=== PATIENT | male | born 1950 | race Two or more races ===

== ENCOUNTER 2020-07-11 | Outpatient (REF) | payer MEDICARE, SELFPAY ==
[2020-07-13 07:27] LABS: FIT Int Ctl YES; FIT1 NEGATIVE (NEGATIVE); FIT2 NEGATIVE (NEGATIVE)
== END 2020-07-11 00:01 | disposition home or self-care (01) ==
LOC: HO.LNP
PROVIDERS: Visit Provider Internal Medicine
DX: R19.5 Other fecal abnormalities (principal)
CPT/HCPCS: 82274

== ENCOUNTER 2020-07-17 12:25 | Outpatient (REF) | payer MEDICARE, SELFPAY ==
[2020-07-17 14:42] LABS: PSA,Total (Free>4and<10) 5.32 ng/mL (0.00-4.00)
[2020-07-18 11:11] LABS: Free Prostate Spec Ag 1.6 ng/mL; Percent Free Prostate Spec Ag 30 % (calc) (>25); Prostate Specific Ag Total 5.4 ng/mL (< OR = 4.0)
== END 2020-07-17 12:26 | disposition home or self-care (01) ==
LOC: HO.HMGCLDS 12:25
PROVIDERS: PCP Internal Medicine; Visit Provider Urology
DX: R97.20 Elevated prostate specific antigen [PSA] (principal); Z12.5 Encounter for screening for malignant neoplasm of prostate
CPT/HCPCS: 84153; 84154

== ENCOUNTER → 2020-07-25 16:04 | Outpatient (BNVA) | payer MEDICARE, SELFPAY | PROVIDERS: Visit Provider Urology | DX: Z76.89 Persons encountering health services in other specified circumstances (principal) | CPT/HCPCS: Q3014 ==

== ENCOUNTER 2020-10-14 08:25 | Outpatient (REF) | payer MEDICARE, SELFPAY ==
[2020-10-14 09:58] LABS: Estimated Average Glucose 180 mg/dL; Hemoglobin A1c % 7.9 %
[2020-10-14 10:20] LABS: Alanine Aminotransferase 23 U/L (0-40); Albumin Level 4.4 g/dL (3.5-5.0); Alkaline Phosphatase 49 U/L (39-117); Anion Gap 14 (12-20); Aspartate Amino Transferase 14 U/L (5-37); Bilirubin Total 0.7 mg/dL (0.0-1.0); Blood Urea Nitrogen 15 mg/dL (9-16); Calcium 9.1 mg/dL (8.4-10.2); Carbon Dioxide 26 mmol/L (22-29); Chloride 105 mmol/L (96-108); Cholesterol 189 mg/dL; Estimated Glomerular Filt Rate > 60; Glucose Fasting 177 mg/dL (60-99); HDL Cholesterol 47 mg/dL; LDL Cholesterol Calculated 113 mg/dl; Potassium 4.5 mmol/L (3.3-5.1); Sodium 140 mmol/L (135-145); Total Protein 6.7 g/dL (6.5-8.0); Triglycerides 147 mg/dL
[2020-10-14 11:45] LABS: Creatinine Urine 293.98 mg/dL; Microalbum/Creatinine Ratio Ur 10.2 ug/mg cr
== END 2020-10-14 08:26 | disposition home or self-care (01) ==
LOC: HO.LAB 08:25
PROVIDERS: PCP Internal Medicine; Visit Provider Internal Medicine
DX: I10 Essential (primary) hypertension (principal); E11.9 Type 2 diabetes mellitus without complications; E78.5 Hyperlipidemia, unspecified; C91.10 Chronic lymphocytic leukemia of B-cell type not having achieved remission
CPT/HCPCS: 36415; 80053; 80061; 82043; 83036

== ENCOUNTER 2021-01-15 15:07 | Outpatient (REF) | payer MEDICARE, SELFPAY ==
[2021-01-15 16:41] LABS: Basophils Absolute Auto 0.1 X10*3/uL (0.0-0.2); Basophils Percent Auto 0.4 % (0-2); Eosinophils Absolute Auto 0.1 X10*3/uL (0.0-0.4); Hematocrit 40.6 % (42-52); Hemoglobin 12.8 g/dl (14.0-18.0); Imm Gran Abs Auto 0.04 X10*3/uL (0.00-0.03); Imm Gran Pct Auto 0.3 % (0.0-0.4); Lymphocytes Percent Auto 71.9 % (20-40); MANUAL DIFF FLAG SCAN; Mean Corpuscular HGB Conc 31.5 g/dl (31.0-36.0); Mean Corpuscular Volume 85.7 fL (80-98); Mean Platelet Volume 10.4 fL (9.4-12.4); Monocytes Absolute Auto 0.4 X10*3/uL (0.1-1.2); Monocytes Percent Auto 2.8 % (2-11); Neutrophils Absolute Auto 3.3 X10*3/uL (2.0-8.3); Neutrophils Percent Auto 23.6 % (45-73); Platelet Count 213 X10*3/uL (160-400); Red Blood Count 4.74 X10*6/uL (4.60-5.80); Red Cell Distribution Width 13.2 % (11.0-16.0); SCAN SMEAR FLAG 1; White Blood Count 13.9 X10*3/uL (4.8-10.8)
[2021-01-15 16:54] LABS: Estimated Average Glucose 197 mg/dL; Hemoglobin A1c % 8.5 %
[2021-01-15 17:05] LABS: SLIDE REVIEW VERIFIED
[2021-01-15 17:07] LABS: Alanine Aminotransferase 17 U/L (0-40); Albumin Level 4.5 g/dL (3.5-5.0); Alkaline Phosphatase 58 U/L (39-117); Anion Gap 14 (12-20); Aspartate Amino Transferase 12 U/L (5-37); Bilirubin Total 0.7 mg/dL (0.0-1.0); Blood Urea Nitrogen 18 mg/dL (9-16); Calcium 9.3 mg/dL (8.4-10.2); Carbon Dioxide 22 mmol/L (22-29); Chloride 105 mmol/L (96-108); Cholesterol 189 mg/dL; Estimated Glomerular Filt Rate > 60; Glucose Random 134 mg/dL (60-115); HDL Cholesterol 45 mg/dL; LDL Cholesterol Calculated 107 mg/dl; Potassium 4.1 mmol/L (3.3-5.1); Sodium 137 mmol/L (135-145); Total Protein 6.9 g/dL (6.5-8.0); Triglycerides 185 mg/dL
== END 2021-01-15 15:08 | disposition home or self-care (01) ==
LOC: HO.HMGCLDS 15:07
PROVIDERS: PCP Internal Medicine; Visit Provider Internal Medicine
DX: I10 Essential (primary) hypertension (principal); E11.9 Type 2 diabetes mellitus without complications; E78.5 Hyperlipidemia, unspecified; C91.10 Chronic lymphocytic leukemia of B-cell type not having achieved remission
CPT/HCPCS: 36415; 80053; 80061; 83036; 85025

== ENCOUNTER 2021-02-06 12:06 | Outpatient (REF) | payer MEDICARE, SELFPAY ==
[2021-02-06 15:05] LABS: Prostate Specific Antigen 5.64 ng/mL (<0.05-4.0)
== END 2021-02-06 12:07 | disposition home or self-care (01) ==
LOC: HO.HMGCLDS 12:06
PROVIDERS: PCP Internal Medicine; Visit Provider Urology
DX: N40.1 Benign prostatic hyperplasia with lower urinary tract symptoms (principal); N13.8 Other obstructive and reflux uropathy; Z12.5 Encounter for screening for malignant neoplasm of prostate
CPT/HCPCS: 36415; 84153

== ENCOUNTER → 2021-02-14 14:05 | Outpatient (BNVA) | payer MEDICARE, SELFPAY | PROVIDERS: PCP Internal Medicine; Visit Provider Urology | DX: R97.20 Elevated prostate specific antigen [PSA] (principal); N40.1 Benign prostatic hyperplasia with lower urinary tract symptoms; N13.8 Other obstructive and reflux uropathy | CPT/HCPCS: 99212 ==

== ENCOUNTER → 2021-03-20 13:38 | Outpatient (BNVA) | payer SELFPAY | PROVIDERS: PCP Internal Medicine; Visit Provider Physician Assistant | DX: Z02.79 Encounter for issue of other medical certificate (principal) ==

== ENCOUNTER 2021-04-16 06:27 | Outpatient (REF) | payer MEDICARE, SELFPAY ==
[2021-04-16 12:33] LABS: Creatinine Urine 264.15 mg/dL; Microalbum/Creatinine Ratio Ur 13.2 ug/mg cr
[2021-04-16 12:57] LABS: Hematocrit 40.6 % (42-52); Hemoglobin 12.4 g/dl (14.0-18.0); Mean Corpuscular HGB Conc 30.5 g/dl (31.0-36.0); Mean Corpuscular Hemoglobin 26.6 pg (27.0-33.0); Mean Corpuscular Volume 87.1 fL (80-98); Mean Platelet Volume 10.8 fL (9.4-12.4); Platelet Count 178 X10*3/uL (160-400); Red Blood Count 4.66 X10*6/uL (4.60-5.80); White Blood Count 17.1 X10*3/uL (4.8-10.8)
[2021-04-16 13:10] LABS: Estimated Average Glucose 154 mg/dL
[2021-04-16 13:12] LABS: Alanine Aminotransferase 17 U/L (0-40); Albumin Level 4.3 g/dL (3.5-5.0); Alkaline Phosphatase 48 U/L (39-117); Anion Gap 12 (12-20); Aspartate Amino Transferase 12 U/L (5-37); Bilirubin Total 0.4 mg/dL (0.0-1.0); Blood Urea Nitrogen 16 mg/dL (9-16); Carbon Dioxide 26 mmol/L (22-29); Chloride 108 mmol/L (96-108); Cholesterol 160 mg/dL; Estimated Glomerular Filt Rate > 60; Glucose Fasting 168 mg/dL (60-99); HDL Cholesterol 40 mg/dL; LDL Cholesterol Calculated 82 mg/dl; Potassium 4.6 mmol/L (3.3-5.1); Sodium 141 mmol/L (135-145); Total Protein 6.5 g/dL (6.5-8.0); Triglycerides 191 mg/dL
== END 2021-04-16 06:28 | disposition home or self-care (01) ==
LOC: HO.HMGCLDS 06:27
PROVIDERS: PCP Internal Medicine; Visit Provider Internal Medicine
DX: E11.9 Type 2 diabetes mellitus without complications (principal); E78.5 Hyperlipidemia, unspecified; I10 Essential (primary) hypertension
CPT/HCPCS: 36415; 80053; 80061; 82043; 83036; 85027

== ENCOUNTER 2021-07-23 06:16 | Outpatient (REF) | payer MEDICARE, SELFPAY ==
[2021-07-23 12:00] LABS: Hematocrit 40.1 % (42.0-52.0); Hemoglobin 12.3 g/dl (14.0-18.0); Mean Corpuscular HGB Conc 30.7 g/dl (31.0-36.0); Mean Corpuscular Hemoglobin 26.5 pg (27.0-33.0); Mean Corpuscular Volume 86.4 fL (80.0-98.0); Mean Platelet Volume 10.6 fL (9.4-12.4); Platelet Count 174 X10*3/uL (160-400); Red Blood Count 4.64 X10*6/uL (4.60-5.80); Red Cell Distribution Width 13.7 % (11.0-16.0); White Blood Count 18.4 X10*3/uL (4.8-10.8)
[2021-07-23 12:27] LABS: Alanine Aminotransferase 19 U/L (0-40); Albumin Level 4.1 g/dL (3.5-5.0); Alkaline Phosphatase 50 U/L (39-117); Anion Gap 14 (12-20); Aspartate Amino Transferase 13 U/L (5-37); Bilirubin Total 0.5 mg/dL (0.0-1.0); Blood Urea Nitrogen 16 mg/dL (9-16); Calcium 9.3 mg/dL (8.4-10.2); Carbon Dioxide 24 mmol/L (22-29); Chloride 104 mmol/L (96-108); Cholesterol 206 mg/dL; Estimated Glomerular Filt Rate > 60; Glucose Fasting 172 mg/dL (60-99); HDL Cholesterol 42 mg/dL; LDL Cholesterol Calculated 119 mg/dl; Potassium 4.1 mmol/L (3.3-5.1); Sodium 138 mmol/L (135-145); Total Protein 6.3 g/dL (6.5-8.0); Triglycerides 226 mg/dL
[2021-07-23 12:29] LABS: PSA,Total (Free>4and<10) 4.48 ng/mL (0.00-4.00)
[2021-07-23 12:35] LABS: Creatinine Urine 101.28 mg/dL; Microalbum/Creatinine Ratio Ur 16.7 ug/mg cr
[2021-07-23 12:53] LABS: Estimated Average Glucose 186 mg/dL; Hemoglobin A1c % 8.1 %
[2021-07-25 12:27] LABS: Free Prostate Spec Ag 1.3 ng/mL; Percent Free Prostate Spec Ag 36 % (calc) (>25); Prostate Specific Ag Total 3.6 ng/mL (< OR = 4.0)
== END 2021-07-23 06:17 | disposition home or self-care (01) ==
LOC: HO.LAB 06:16
PROVIDERS: Absent Provider Urology; PCP Internal Medicine; Visit Provider Internal Medicine
DX: Z12.5 Encounter for screening for malignant neoplasm of prostate (principal); N13.8 Other obstructive and reflux uropathy; N40.1 Benign prostatic hyperplasia with lower urinary tract symptoms; R97.20 Elevated prostate specific antigen [PSA]; E11.9 Type 2 diabetes mellitus without complications; E78.5 Hyperlipidemia, unspecified; I10 Essential (primary) hypertension
CPT/HCPCS: 36415; 80053; 80061; 82043; 83036; 84153; 84154; 85027

== ENCOUNTER 2021-08-04 11:03 | Outpatient (REF) | payer MEDICARE, SELFPAY ==
--- NOTE | ~2021-08-04 | XR_ITS ---
EXAMINATION: XR CHEST CLINICAL INFORMATION: Cough. COMPARISON: 05/07/2013 chest radiographs. TECHNIQUE: 2 views of the chest were obtained. FINDINGS: No significant abnormality is noted involving the heart, lungs, mediastinum, bony thorax or soft tissues. XR/XR chest 2V IMPRESSION: No acute cardiopulmonary process.
== END 2021-08-04 11:04 | disposition home or self-care (01) ==
LOC: HO.HMGCX 11:03
PROVIDERS: PCP Internal Medicine; Visit Provider Physician Assistant Medical
DX: R05.9 Cough, unspecified (principal)
CPT/HCPCS: 71046

== ENCOUNTER 2021-08-04 13:34 | Outpatient (REF) | payer MEDICARE, SELFPAY ==
[2021-08-04 14:52] LABS: Influenza A PCR NEGATIVE (Negative); Influenza B PCR NEGATIVE (Negative); Resp Syncy Virus RNA Qual PCR NEGATIVE (Negative); SARS COV2 PCR INHOUSE POSITIVE (Negative)
== END 2021-08-04 13:35 | disposition home or self-care (01) ==
LOC: HO.LNP 13:34
PROVIDERS: Visit Provider Physician Assistant Medical
DX: Z20.822 Contact with and (suspected) exposure to COVID-19 (principal); J02.9 Acute pharyngitis, unspecified
CPT/HCPCS: 0241U

== ENCOUNTER 2021-08-05 14:26 | Inpatient (IN) | payer MEDICARE, SELFPAY ==
[2021-08-05] VITALS (8 sets, daily range): BP systolic 108–150; BP diastolic 61–80; PULSE 100–114; RESP 16–26; TEMP 36.7–38.1; O2SAT 89–95; BMI 29.5
--- NOTE | ~2021-08-05 | XR_ITS ---
EXAMINATION: XR CHEST CLINICAL INFORMATION: Hypoxia. Covid infection. COMPARISON: Previous chest x-ray from yesterday TECHNIQUE: Frontal view of the chest was obtained. FINDINGS: There is new atelectasis or small infiltrate at the left lung base. The lungs are otherwise clear. The cardiac and mediastinal contours are stable. There is no pleural effusion or pneumothorax. There are degenerative changes of the spine and mild curvature to the right. XR/XR chest 1V IMPRESSION: New atelectasis or small infiltrate at the left lung base.
--- NOTE | 2021-08-05 16:07 | ED.URI ---
HPI - URI/Sore Throat General Chief Complaint: Upper Respiratory Symptoms Stated Complaint: covid + low o2 high bp Time Seen by Provider: 08/05/21 15:13 Source: patient Mode of arrival: ambulatory Limitations: no limitations History of Present Illness HPI Narrative: 71 y/o male with history of CLL, HTN, DM, HLD, BPH who was diagnosed with COVID-19 here yesterday presents to the ER with reports of low oxygen level at home. He used his 's pulse oximeter and his SpO2 was reportedly in the 80's, he cannot recall the number. He reports a dry cough that is causing him to be short of breath and have chest pain. He has no chest pain at rest or with exertion, only with coughing. He has some minor body aches and pains, headache. He does not have any nausea, vomiting, diarrhea or abdominal pain. His main complaint is cough. His was very worried due to low oxygen level at home so they came to the emergency room for further evaluation. He is vaccinated for COVID but did not get his booster yet. MD elicited complaint: cough and other (Low oxygen level at home) Pertinent past history: other (COVID-19) Onset (ago): unknown Consistency: intermittent Severity: moderate Able to tolerate fluids by mouth: Yes Exacerbating factors: other (Coughing) Relieving factors: nothing Associated symptoms: cough, chest pain and shortness of breath Treatments prior to arrival: none Related Data Home Medications Medication Instructions Recorded Confirmed aspirin 81 mg tablet,delayed 81 mg PO DAILY 05/19/20 07/31/21 release Previous Rx's Medication Instructions Recorded lisinopril 20 mg tablet 20 mg PO DAILY #90 tab 08/10/20 metoprolol succinate 100 mg 100 mg PO DAILY #90 tab 08/10/20 tablet,extended release 24 hr amlodipine 10 mg tablet 10 mg PO DAILY #90 tab 11/07/20 finasteride 5 mg tablet 5 mg PO DAILY 90 Days #90 tab 02/27/21 pravastatin 40 mg tablet 40 mg PO DAILY #90 tab 03/20/21 metformin 1,000 mg tablet 1,000 mg PO BID #180 tab 05/08/21 glipizide 10 mg tablet 10 mg PO BID #180 tab 07/06/21 azithromycin 250 mg tablet See Rx Instructions PO .COMPLEX #6 08/04/21 tab benzonatate 100 mg capsule 100 mg PO BID-TID PRN #30 cap 08/04/21 Allergies Allergy/AdvReac Type Severity Reaction Status Date / Time atorvastatin [Lipitor] AdvReac Unknown back pain Verified 08/04/21 10:46 Review of Systems Review of Systems: Constitutional: No Fever, No Chills ENT/Mouth: No sore throat, No Rhinorrhea, No Swallowing Difficulty Eyes: No Eye Pain, No Swelling, No Redness Cardiovascular: + Chest Pain,+ SOB, No Orthopnea, No Edema Respiratory: + Cough, No Sputum, No Wheezing, No dyspnea Gastrointestinal: No Nausea, No Vomiting, No Diarrhea, No abdominal Pain Genitourinary: No Dysuria, No Urinary Frequency, No Hematuria Musculoskeletal: No joint pain, + Myalgias Skin: No Skin Lesions, No rash Neuro: No Weakness, No Numbness, No Dizziness, + Headache Psych: No Anxiety/Panic, No Depression Heme/Lymph: No Bruising, No Lymphadenopathy Endocrine: No Polyuria, No Polydipsia PMFSH Past Medical History Medical History Ascending aorta enlargement CLL (chronic lymphocytic leukemia) Colonoscopy refused DM type 2 (diabetes mellitus, type 2) (Unknown) HTN (hypertension) (Unknown) Hyperlipemia Surgical History History of cholecystectomy (Unknown) History of repair of right rotator cuff (Unknown) Family History Family History Father No problems noted. Mother Diabetes Social History Social History Housing: House Patient Tobacco Use Status: Former Tobacco user e-Cigarette/Vaping Use: Never Used Advance Directives: No Advance Directives Information Provided: Yes Current occupational status: retired Physical Exam Vital Signs: Vital Signs: Last Vital Signs Temp 99.2 F 08/05/21 14:40 Pulse 113 H 08/05/21 17:28 Resp 26 H 08/05/21 17:28 BP 120/72 08/05/21 17:28 Pulse Ox 92 08/05/21 17:28 BMI result Body Mass Index 29.5 Appearance: Alert elderly male sitting up in bed. Oriented X3. Eyes: Pupils equal, round and reactive to light. ENT: Pharynx normal. Neck: Normal inspection. Neck supple. CVS: Tachycardic to the 110's, regular rhythmPulses normal. Respiratory: Respiratory rate 26- 27, no accessory muscle use. Breath sounds diminished at the bilateral bases Abdomen: Soft and nontender. +BS x4 Skin: Skin warm and dry. Normal skin color. Normal skin turgor. No rashes. Extremities: No lower extremity edema. No calf tenderness Neuro: Oriented X 3. No motor deficit. No sensory deficit. Course Course Course Narrative: 71-year-old male with history of CLL, HTN, HLD, diabetes presents to the ER with hypoxia in the setting of COVID-19. He reports a dry cough that is very bothersome. Coughing causing shortness of breath and chest pain. SpO2 on arrival 92-94%. Monitor on continuous pulse oximetry to assess for potential hypoxia. His lungs are clear with a dry cough noted. He is not working to breathe or having any difficulty. Reevaluation(s) Reevaluation #1: Patient dropped SpO2 to 89% was maintaining for several minutes. Will place on supplemental O2, start IV decadron and plan for admission. MDM - URI/Sore Throat Lab Data Result diagrams: 08/05/21 16:04 08/05/21 16:04 Labs: Lab Results 08/05/21 08/05/21 Range/Units 16:04 16:04 WBC 17.8 H (4.8-10.8) X10*3/uL RBC 4.47 L (4.60-5.80) X10*6/uL Hgb 12.1 L (14.0-18.0) g/dl Hct 38.1 L (42.0-52.0) % MCV 85.2 (80.0-98.0) fL MCH 27.1 (27.0-33.0) pg MCHC 31.8 (31.0-36.0) g/dl RDW 13.5 (11.0-16.0) % Plt Count 166 (160-400) X10*3/uL MPV 9.5 (9.4-12.4) fL Immature Gran % (Auto) Cancelled Neut % (Auto) Cancelled Lymph % (Auto) Cancelled [place] % (Auto) Cancelled Eos % (Auto) Cancelled Baso % (Auto) Cancelled Lymph # (Auto) Cancelled [place] # (Auto) Cancelled Eos # (Auto) Cancelled Baso # (Auto) Cancelled Abs Immat Gran (auto) Cancelled Absolute Neuts (auto) Cancelled Absolute Nucleated RBC 0.000 (0.0-0.012) X10*3/uL Nucleated RBC % (auto) 0.0 (0.0-0.2) /100WBC Neutrophils % (Manual) 59 (45-73) % Band Neutrophils % 3 (3-5) % Lymphocytes % (Manual) 27 (20-40) % Monocytes % (Manual) 8 (2-11) % Eosinophils % (Manual) 1 (0-4) % Basophils % (Manual) 2 (0-2) % Abs Neuts (Manual) 11.0 H (2.0-8.3) X10*3/uL Lymphocytes # (Manual) 4.8 (1.2-4.9) X10*3/uL Monocytes # (Manual) 1.4 H (0.1-1.2) X10*3/uL Eosinophils # (Manual) 0.2 (0.0-0.4) X10*3/uL Basophils # (Manual) 0.4 H (0.0-0.2) X10*3/uL Smudge Cells PRESENT Platelet Estimate NORMAL (NORMAL) Plt Morphology Comment NORMAL RBC Morphology NORMAL Sodium 136 (135-145) mmol/L Potassium 3.9 (3.3-5.1) mmol/L Chloride 103 (96-108) mmol/L Carbon Dioxide 24 (22-29) mmol/L Anion Gap 13 (12-20) BUN 13 (9-16) mg/dL Creatinine 1.06 (0.5-1.4) mg/dL Estim Creat Clear Calc 83.5 Estimated GFR > 60 Random Glucose 260 H D (60-115) mg/dL Calcium 9.2 (8.4-10.2) mg/dL Magnesium 1.7 (1.6-2.6) mg/dL Total Bilirubin 0.6 (0.0-1.0) mg/dL Direct Bilirubin 0.2 (0.0-0.5) mg/dL AST 11 (5-37) U/L ALT 14 (0-40) U/L Alkaline Phosphatase 57 (39-117) U/L C-Reactive Protein 9.44 H (< or = 0.50) mg/dL Total Protein 6.3 L (6.5-8.0) g/dL Albumin 4.1 (3.5-5.0) g/dL Discharge Plan Discharge Clinical Impression: COVID-19, Hypoxia Patient Disposition: Admitted As Inpatient
[2021-08-05 16:10] LABS: Hematocrit 38.1 % (42.0-52.0); Hemoglobin 12.1 g/dl (14.0-18.0); Mean Corpuscular HGB Conc 31.8 g/dl (31.0-36.0); Mean Corpuscular Hemoglobin 27.1 pg (27.0-33.0); Mean Corpuscular Volume 85.2 fL (80.0-98.0); Mean Platelet Volume 9.5 fL (9.4-12.4); Platelet Count 166 X10*3/uL (160-400); Red Blood Count 4.47 X10*6/uL (4.60-5.80); Red Cell Distribution Width 13.5 % (11.0-16.0); White Blood Count 17.8 X10*3/uL (4.8-10.8)
[2021-08-05 16:40] LABS: Alanine Aminotransferase 14 U/L (0-40); Albumin Level 4.1 g/dL (3.5-5.0); Alkaline Phosphatase 57 U/L (39-117); Anion Gap 13 (12-20); Aspartate Amino Transferase 11 U/L (5-37); Bilirubin Direct 0.2 mg/dL (0.0-0.5); Bilirubin Total 0.6 mg/dL (0.0-1.0); Blood Urea Nitrogen 13 mg/dL (9-16); C Reactive Protein 9.44 mg/dL (< or = 0.50); Calcium 9.2 mg/dL (8.4-10.2); Carbon Dioxide 24 mmol/L (22-29); Chloride 103 mmol/L (96-108); Creatinine Clr Calc Pharmacy 83.5; Estimated Glomerular Filt Rate > 60; Glucose Random 260 mg/dL (60-115); Magnesium 1.7 mg/dL (1.6-2.6); Potassium 3.9 mmol/L (3.3-5.1); Sodium 136 mmol/L (135-145); Total Protein 6.3 g/dL (6.5-8.0)
[2021-08-05 16:41] LABS: Band Neutrophils Percent 3 % (3-5); Basophils Abs Manual 0.4 X10*3/uL (0.0-0.2); Basophils Percent Manual 2 % (0-2); Eosinophils Absolute Manual 0.2 X10*3/uL (0.0-0.4); Eosinophils Percent Manual 1 % (0-4); Lymphocytes Absolute Manual 4.8 X10*3/uL (1.2-4.9); Lymphocytes Percent Manual 27 % (20-40); Monocytes Absolute Manual 1.4 X10*3/uL (0.1-1.2); Monocytes Percent Manual 8 % (2-11); Neutrophils Percent Manual 59 % (45-73); Platelet Estimate NORMAL (NORMAL); Platelet Morphology Comment NORMAL
[2021-08-05 16:45] LABS: RBC Morphology NORMAL; Smudge Cells PRESENT
--- NOTE | 2021-08-05 17:02 | ECG_ITS ---
Test Reason : HYPOXIA Blood Pressure : / mmHG Vent. Rate : 108 BPM Atrial Rate : 108 BPM P-R Int : 176 ms QRS Dur : 086 ms QT Int : 342 ms P-R-T Axes : 032 -37 021 degrees QTc Int : 458 ms Sinus tachycardia Left axis deviation Cannot rule out Inferior infarct , age undetermined Abnormal ECG No previous ECGs available Referred By: Sherri Mane Electronically Signed By:ORIN CALLES MD
[2021-08-05] MEDS: dexAMETHasone sod phosphate 4 MG/ML VIAL 8 MG IVPUSH (17:19)
--- NOTE | 2021-08-05 17:29 | PC.NURSE ---
Medicated as per MAR orders, awaiting dispo, pt offers no complaints. Will cntinue to monitor.
[2021-08-05 17:44] LABS: Procalcitonin 0.06 ng/mL
--- NOTE | 2021-08-05 17:46 | PC.NURSE ---
Pt placed on 2l NC as per provider orders.
--- NOTE | 2021-08-05 18:46 | PM.IMHP ---
History of Present Illness Date of Service: 08/05/21 Attending physician on admission: Mohamud Blankenship Chief Complaint: Shortness of breath 71-year-old gentleman with past medical history of CLL in remission, hypertension, type 2 diabetes mellitus, hyperlipidemia patient diagnosed to have COVID-19 yesterday, he is vaccinated, presented to [facility] today since noted to have low oxygen level in 80s at home, used 's pulse oximetry, he is complaining of dry cough unable to bring up phlegm associated with shortness of breath and chest pain with coughing he denies associated lightheadedness dizziness, denies nausea vomiting abdominal pain or diarrhea denies fever chills or rigors complain of generalized body ache, in the emergency room noted to have finger oximetry 89% at rest, therefore placed on 2 L of oxygen receive IV Decadron and now being admitted to [facility] due to acute hypoxic respiratory failure with underlying risk factors of diabetes hypertension and CLL. Review of Systems Review of Systems: General headache no dizziness no fever chills. CVS no chest pain, no palpitation. Respiratory dry cough and shortness of breath Gastrointestinal no nausea no vomiting, no abdominal pain Skin no rash no urgency/no frequency Musculoskeletal generalized body ache, no swollen joints Yes all other systems are reviewed and are negative [facility] Medical History Ascending aorta enlargement CLL (chronic lymphocytic leukemia) Colonoscopy refused DM type 2 (diabetes mellitus, type 2) (Unknown) HTN (hypertension) (Unknown) Hyperlipemia Family History Father No problems noted. Mother Diabetes Pertinent family history: Unchanged, no other pertinent family history other than above Surgical History History of cholecystectomy (Unknown) History of repair of right rotator cuff (Unknown) Social History Housing: House Alcohol intake: never Patient Tobacco Use Status: Former Tobacco user e-Cigarette/Vaping Use: Never Used Use of substances other than those prescribed or required for medical reasons: No Advance Directives: No Advance Directives Information Provided: Yes Current occupational status: retired Meds Allergies Allergy/AdvReac Type Severity Reaction Status Date / Time atorvastatin [Lipitor] AdvReac Unknown back pain Verified 08/04/21 10:46 Active Medications: Current Medications Acetaminophen (Acetaminophen 325 Mg Tablet) 650 mg PO Q6H PRN PRN Reason: Pain, Mild (Pain Scale 1-3) Aspirin (Aspirin Enteric Coated 81 Mg Tablet.Dr) 81 mg PO DAILY [facility] Dextrose (Dextrose 50 % 25 Gm/50 Ml Vial) 25 gm IVPUSH Q15M PRN; Protocol PRN Reason: per Hypoglycemia Standing Ord. Glipizide (Glipizide 10 Mg Tablet) 10 mg PO BID [facility] Glucose (Glucose Gel 15 Gm Gel..Gram.) 15 gm PO Q15M PRN; Protocol PRN Reason: per Hypoglycemia Standing Ord. Insulin Human Lispro (Insulin Lispro 100 Unit/Ml 3 Ml Vial) 0 unit SUBCUT QIDACHS [facility]; Protocol Lisinopril (Lisinopril 20 Mg Tablet) 20 mg PO DAILY [facility]; Protocol Metoprolol Succinate (Metoprolol Succinate Er 100 Mg Tab.Er.24h) 100 mg PO DAILY [facility]; Protocol Ondansetron HCl (Ondansetron Hcl 4 Mg/2 Ml Vial) 4 mg IVPUSH Q8H PRN PRN Reason: Nausea and Vomiting Pravastatin Sodium (Pravastatin Sodium 40 Mg Tablet) 40 mg PO DAILY [facility] Sodium Chloride (0.9 % Sodium Chloride Flush 3 Ml Syringe) 3 ml IVFLUSH QSHIFT [facility] Home Medications Medication Instructions Recorded Confirmed Last Taken Type aspirin 81 mg tablet,delayed 81 mg PO DAILY 05/19/20 07/31/21 Unknown History release metformin 1,000 mg tablet 850 mg PO BID 08/05/21 08/05/21 08/05/21 08:00 History Physical Exam Vital Signs and Narrative: Vital Signs: Last Vital Signs Temp 99.2 F 08/05/21 14:40 Pulse 114 H 08/05/21 17:42 Resp 26 H 08/05/21 17:28 BP 120/72 08/05/21 17:28 Pulse Ox 89 L 08/05/21 17:42 BMI result Body Mass Index 29.5 General awake alert x3, no acute distress. HEENT pupil equal round reactive to light and accommodation Neck no JVD. CVS regular rate rhythm, Respiratory lungs bilateral basilar rhonchi, no respiratory distress, no use of accessory muscles Gastrointestinal abdomen soft, nontender, bowel sounds audible Extremities no edema. Neuro nonfocal Skin no rash Psych appropriate affect, appears anxious Musculoskeletal no deformity Results Labs CBC and Chem 7: 08/05/21 16:04 08/05/21 16:04 Labs: Laboratory Results - last 24 hr 08/05/21 08/05/21 08/05/21 16:04 16:04 16:04 MCV 85.2 MCH 27.1 MCHC 31.8 RDW 13.5 Plt Count 166 MPV 9.5 Immature Gran % (Auto) Cancelled Neut % (Auto) Cancelled Lymph % (Auto) Cancelled [place] % (Auto) Cancelled Eos % (Auto) Cancelled Baso % (Auto) Cancelled Lymph # (Auto) Cancelled [place] # (Auto) Cancelled Eos # (Auto) Cancelled Baso # (Auto) Cancelled Abs Immat Gran (auto) Cancelled Absolute Neuts (auto) Cancelled Absolute Nucleated RBC 0.000 Nucleated RBC % (auto) 0.0 Neutrophils % (Manual) 59 Band Neutrophils % 3 Lymphocytes % (Manual) 27 Monocytes % (Manual) 8 Eosinophils % (Manual) 1 Basophils % (Manual) 2 Abs Neuts (Manual) 11.0 H Lymphocytes # (Manual) 4.8 Monocytes # (Manual) 1.4 H Eosinophils # (Manual) 0.2 Basophils # (Manual) 0.4 H Smudge Cells PRESENT Platelet Estimate NORMAL Plt Morphology Comment NORMAL RBC Morphology NORMAL Anion Gap 13 Estim Creat Clear Calc 83.5 Estimated GFR > 60 Random Glucose 260 H D Calcium 9.2 Magnesium 1.7 Total Bilirubin 0.6 Direct Bilirubin 0.2 AST 11 ALT 14 Alkaline Phosphatase 57 C-Reactive Protein 9.44 H Total Protein 6.3 L Albumin 4.1 Procalcitonin 0.06 Imaging Radiologist's Impressions: Impressions Chest X-Ray 08/05/21 15:24 IMPRESSION: New atelectasis or small infiltrate at the left lung base. Assessment and Plan (1) COVID-19: Status: Acute (2) Hypoxia: Status: Acute (3) HTN (hypertension): Status: Acute (4) DM type 2 (diabetes mellitus, type 2): Status: Acute (5) Hyperlipemia: Status: Acute (6) Hypertension: Status: Acute (7) CLL (chronic lymphocytic leukemia): Status: Acute Acute hypoxic respiratory failure due to COVID-19 Will admit to isolation unit, high risk due to CLL, diabetes and hypertension. Continue IV Decadron 6 mg daily, supportive care with cough medication ,oxygen titrate as tolerated Pepcid 20 mg b.i.d., vitamin-C 500 mg daily and zinc Procalcitonin 0.06, CRP 9.44 Consult ID for remdesivir CLL leukocytosis, in remission as per PCP notes Diabetes mellitus type 2 Hold metformin, continue glipizide add insulin sliding scale and placed on ADA diet Hypertension Continue home medication lisinopril, metoprolol, hold Norvasc, resume if noted to have elevated BP Hyperlipidemia Continue pravastatin Code status full code DVT prophylaxis subQ Lovenox Quality Stroke Does the patient have a stroke diagnosis?: No VTE Prior VTE?: No VTE Risk Level:: Medical - moderate - high VTE Device Contraindication: Treatment Not Indicated VTE Drug Contraindication: N/A - Med Ordered
[2021-08-05] MEDS: Famotidine 20 MG TABLET PO (22:00)
[2021-08-05] MEDS: Insulin Lispro 100 UNIT/ML 3 ML VIAL SUBCUT (22:00)
[2021-08-05] MEDS: guaiFENesin DM 200/20/10 ML 10 ML SYRUP PO (22:00)
[2021-08-05] MEDS: Enoxaparin Sodium 40 MG/0.4 ML SYRINGE SUBCUT (22:00)
[2021-08-05] MEDS: glipiZIDE 10 MG TABLET PO (22:13)
[2021-08-06 00:41] LABS: Glucose, Whole Blood 264 mg/dL (60-115)
[2021-08-06] MEDS: guaiFENesin DM 200/20/10 ML 10 ML SYRUP PO ×4 (00:53→18:55)
[2021-08-06 03:07] VITALS: BP 96/50; PULSE 86; RESP 20; TEMP 36.9; O2SAT 92
--- NOTE | 2021-08-06 04:17 | PC.NURSE ---
pt on monitor, pt wakes to voice and denies any complaints at this time. Pt alert, respirations easy, n/l. skin w/d. pt given pillow and blanket for comfort. pt awaiting for room assignment.
[2021-08-06 06:01] VITALS: BP 117/65; PULSE 94; RESP 16; TEMP 36.7; O2SAT 98
--- NOTE | 2021-08-06 06:04 | PC.NURSE ---
pt cleaned up, pt wakes to voice, respirations easy, n/l. skin w/d. will continue to monitor pt.
--- NOTE | 2021-08-06 07:24 | PC.NURSE ---
alert, speech clear, denies pain or sob, feel good , ambulated to bathroom, now eating breakfast
[2021-08-06] MEDS: Famotidine 20 MG TABLET PO ×2 (07:58→20:04)
[2021-08-06] MEDS: dexAMETHasone sod phosphate 4 MG/ML VIAL 6 MG IVPUSH (07:58)
[2021-08-06 07:59] VITALS: BP 122/64; PULSE 92
[2021-08-06] MEDS: Aspirin Enteric Coated 81 MG TABLET.DR PO (07:59)
[2021-08-06] MEDS: lisinopriL 20 MG TABLET PO (07:59)
[2021-08-06] MEDS: Ascorbic Acid 500 MG TABLET PO (07:59)
[2021-08-06 08:00] VITALS: BP 126/77; PULSE 97
[2021-08-06] MEDS: Metoprolol Succinate ER 100 MG TAB.ER.24H PO (08:00)
[2021-08-06 08:05] VITALS: BP 126/77; PULSE 95; RESP 17; O2SAT 96
[2021-08-06] MEDS: glipiZIDE 10 MG TABLET PO ×2 (08:17→22:29)
[2021-08-06] MEDS: Finasteride 5 MG TABLET PO (08:17)
[2021-08-06] MEDS: Zinc Sulfate 220 MG CAPSULE PO (08:17)
[2021-08-06] MEDS: Insulin Lispro 100 UNIT/ML 3 ML VIAL SUBCUT ×4 (08:18→22:33)
[2021-08-06] MEDS: 0.9 % Sodium Chloride Flush 3 ML SYRINGE IVFLUSH ×2 (08:21→18:55)
[2021-08-06 09:19] LABS: Glucose, Whole Blood 320 mg/dL (60-115)
[2021-08-06 09:19] LABS: Glucose, Whole Blood 285 mg/dL (60-115)
--- NOTE | 2021-08-06 13:06 | MHC.CM.PN ---
Attempted to meet with patient in regards to discharge planning. Patient not in room. Will attempt to meet again. Continue to monitor for d/c needs.
[2021-08-06 13:29] LABS: Glucose, Whole Blood 252 mg/dL (60-115)
--- NOTE | 2021-08-06 13:31 | HO.PM.IMPN ---
Subjective Subjective Date of Service: 08/06/21 Interval History: Mild cough; dyspnea improved No fever Onset of illness was 07/31 Review of Systems Review of Systems: Yes all other systems are reviewed and are negative Physical Exam Vital Signs: Vital Signs: Last Vital Signs Temp 98.0 F 08/06/21 06:01 Pulse 95 08/06/21 08:05 Resp 17 08/06/21 08:05 BP 126/77 08/06/21 08:05 Pulse Ox 96 08/06/21 08:05 BMI result Body Mass Index 29.5 Gen: in no acute distress HEENT: sclera anicteric, moist mucus membranes Neck: supple Lungs: clear to auscultation bilaterally Heart: regular rate and rhythm, no murmurs Abd: soft, non-tender, non-distended Ext: no edema Skin: warm/well-perfused Neuro: alert and oriented x3, no focal findings Psych: appropriate affect Objective Data Active Medications Acetaminophen (Acetaminophen 325 Mg Tablet) 650 mg PO Q6H PRN PRN Reason: Pain, Mild (Pain Scale 1-3) Ascorbic Acid (Ascorbic Acid 500 Mg Tablet) 500 mg PO DAILY COUNT INCLUDES THE [facility] Last Admin: 08/06/21 07:59 Dose: 500 mg Documented by: MATTHEW Aspirin (Aspirin Enteric Coated 81 Mg Tablet.) 81 mg PO DAILY COUNT INCLUDES THE [facility] Last Admin: 08/06/21 07:59 Dose: 81 mg Documented by: MATTHEW Dexamethasone Sodium Phosphate (Dexamethasone Sod Phosphate 4 Mg/Ml Vial) 6 mg IVPUSH DAILY COUNT INCLUDES THE [facility] Last Admin: 08/06/21 07:58 Dose: 6 mg Documented by: MATTHEW Dextrose (Dextrose 50 % 25 Gm/50 Ml Vial) 25 gm IVPUSH Q15M PRN; Protocol PRN Reason: per Hypoglycemia Standing Ord. Enoxaparin Sodium (Enoxaparin Sodium 40 Mg/0.4 Ml Syringe) 40 mg SUBCUT Q24H COUNT INCLUDES THE [facility] Last Admin: 08/05/21 22:00 Dose: 40 mg Documented by: YANICK Famotidine (Famotidine 20 Mg Tablet) 20 mg PO BID COUNT INCLUDES THE [facility] Last Admin: 08/06/21 07:58 Dose: 20 mg Documented by: MATTHEW Finasteride (Finasteride 5 Mg Tablet) 5 mg PO DAILY COUNT INCLUDES THE [facility] Last Admin: 08/06/21 08:17 Dose: 5 mg Documented by: MATTHEW Glipizide (Glipizide 10 Mg Tablet) 10 mg PO BID COUNT INCLUDES THE [facility] Last Admin: 08/06/21 08:17 Dose: 10 mg Documented by: MATTHEW Glucose (Glucose Gel 15 Gm Gel..Gram.) 15 gm PO Q15M PRN; Protocol PRN Reason: per Hypoglycemia Standing Ord. Guaifenesin/Dextromethorphan (Guaifenesin Dm 200/20/10 Ml 10 Ml Syrup) 10 ml PO Q6H COUNT INCLUDES THE [facility] Last Admin: 08/06/21 07:58 Dose: 10 ml Documented by: MATTHEW Insulin Human Lispro (Insulin Lispro 100 Unit/Ml 3 Ml Vial) 0 unit SUBCUT QIDACHS COUNT INCLUDES THE [facility]; Protocol Last Admin: 08/06/21 08:18 Dose: 2 unit Documented by: MATTHEW Lisinopril (Lisinopril 20 Mg Tablet) 20 mg PO DAILY COUNT INCLUDES THE [facility]; Protocol Last Admin: 08/06/21 07:59 Dose: 20 mg Documented by: MATTHEW Metoprolol Succinate (Metoprolol Succinate Er 100 Mg Tab.Er.24h) 100 mg PO DAILY COUNT INCLUDES THE [facility]; Protocol Last Admin: 08/06/21 08:00 Dose: 100 mg Documented by: MATTHEW Ondansetron HCl (Ondansetron Hcl 4 Mg/2 Ml Vial) 4 mg IVPUSH Q8H PRN PRN Reason: Nausea and Vomiting Pravastatin Sodium (Pravastatin Sodium 40 Mg Tablet) 40 mg PO BEDTIME COUNT INCLUDES THE [facility] Sodium Chloride (0.9 % Sodium Chloride Flush 3 Ml Syringe) 3 ml IVFLUSH QSHIFT COUNT INCLUDES THE [facility] Last Admin: 08/06/21 08:21 Dose: 3 ml Documented by: MATTHEW Zinc Sulfate (Zinc Sulfate 220 Mg Capsule) 220 mg PO DAILY COUNT INCLUDES THE [facility] Last Admin: 08/06/21 08:17 Dose: 220 mg Documented by: MATTHEW Labs CBC & Chem 7: 08/05/21 16:04 08/05/21 16:04 Labs: Laboratory Results - last 24 hr 08/05/21 08/05/21 08/05/21 16:04 16:04 16:04 MCV 85.2 MCH 27.1 MCHC 31.8 RDW 13.5 Plt Count 166 MPV 9.5 Immature Gran % (Auto) Cancelled Neut % (Auto) Cancelled Lymph % (Auto) Cancelled [place] % (Auto) Cancelled Eos % (Auto) Cancelled Baso % (Auto) Cancelled Lymph # (Auto) Cancelled [place] # (Auto) Cancelled Eos # (Auto) Cancelled Baso # (Auto) Cancelled Abs Immat Gran (auto) Cancelled Absolute Neuts (auto) Cancelled Absolute Nucleated RBC 0.000 Nucleated RBC % (auto) 0.0 Neutrophils % (Manual) 59 Band Neutrophils % 3 Lymphocytes % (Manual) 27 Monocytes % (Manual) 8 Eosinophils % (Manual) 1 Basophils % (Manual) 2 Abs Neuts (Manual) 11.0 H Lymphocytes # (Manual) 4.8 Monocytes # (Manual) 1.4 H Eosinophils # (Manual) 0.2 Basophils # (Manual) 0.4 H Smudge Cells PRESENT Platelet Estimate NORMAL Plt Morphology Comment NORMAL RBC Morphology NORMAL Anion Gap 13 Estim Creat Clear Calc 83.5 Estimated GFR > 60 POC Glucose Random Glucose 260 H D Calcium 9.2 Magnesium 1.7 Total Bilirubin 0.6 Direct Bilirubin 0.2 AST 11 ALT 14 Alkaline Phosphatase 57 C-Reactive Protein 9.44 H Total Protein 6.3 L Albumin 4.1 Procalcitonin 0.06 08/06/21 08/06/21 08/06/21 00:36 07:55 09:15 MCV MCH MCHC RDW Plt Count MPV Immature Gran % (Auto) Neut % (Auto) Lymph % (Auto) [place] % (Auto) Eos % (Auto) Baso % (Auto) Lymph # (Auto) [place] # (Auto) Eos # (Auto) Baso # (Auto) Abs Immat Gran (auto) Absolute Neuts (auto) Absolute Nucleated RBC Nucleated RBC % (auto) Neutrophils % (Manual) Band Neutrophils % Lymphocytes % (Manual) Monocytes % (Manual) Eosinophils % (Manual) Basophils % (Manual) Abs Neuts (Manual) Lymphocytes # (Manual) Monocytes # (Manual) Eosinophils # (Manual) Basophils # (Manual) Smudge Cells Platelet Estimate Plt Morphology Comment RBC Morphology Anion Gap Estim Creat Clear Calc Estimated GFR POC Glucose 264 H 285 H 320 H Random Glucose Calcium Magnesium Total Bilirubin Direct Bilirubin AST ALT Alkaline Phosphatase C-Reactive Protein Total Protein Albumin Procalcitonin 08/06/21 13:23 MCV MCH MCHC RDW Plt Count MPV Immature Gran % (Auto) Neut % (Auto) Lymph % (Auto) [place] % (Auto) Eos % (Auto) Baso % (Auto) Lymph # (Auto) [place] # (Auto) Eos # (Auto) Baso # (Auto) Abs Immat Gran (auto) Absolute Neuts (auto) Absolute Nucleated RBC Nucleated RBC % (auto) Neutrophils % (Manual) Band Neutrophils % Lymphocytes % (Manual) Monocytes % (Manual) Eosinophils % (Manual) Basophils % (Manual) Abs Neuts (Manual) Lymphocytes # (Manual) Monocytes # (Manual) Eosinophils # (Manual) Basophils # (Manual) Smudge Cells Platelet Estimate Plt Morphology Comment RBC Morphology Anion Gap Estim Creat Clear Calc Estimated GFR POC Glucose 252 H Random Glucose Calcium Magnesium Total Bilirubin Direct Bilirubin AST ALT Alkaline Phosphatase C-Reactive Protein Total Protein Albumin Procalcitonin Assessment and Plan (1) COVID-19: Status: Acute (2) Hypoxia: Status: Acute Assessment and Plan: hospital d#2 71yo M with CLL + DM2, admitted with hypoxia due to breakthrough COVID-19 infection that started on 07/31/21 # acute hypoxic resp failure # COVID-19 pneumonia - continue dexamethasone d#10/04 - trend inflammatory markers - wean O2 as tolerated, encourage awake proning - ID consult pending # CLL - in remission # HTN - continue metoprolol + lisinopril; amlodipine held due to soft BP # DM2 - hold MTF, continue GPZ, check A1c # HLD - continue pravastatin # VTE ppx - LMWH Quality Stroke Does the patient have a stroke diagnosis?: No VTE Prior VTE?: No VTE Risk Level:: Medical - moderate - high VTE Device Contraindication: Treatment Not Indicated VTE Drug Contraindication: N/A - Med Ordered
--- NOTE | 2021-08-06 13:31 | MHC.CM.PN ---
Met with patient in regards to discharge planning. Patient lives with his , ambulates independently and had no services prior to coming to the hospital. No services anticipated to be needed because patient is not homebound. PCP verified. Patient has a HCP and will attempt to obtain a copy. Patient received 2 Moderna vaccines. IMM explained and signed. Patient's family will transport him home when medically stable. Continue to monitor for d/c needs.
[2021-08-06] MEDS: Enoxaparin Sodium 40 MG/0.4 ML SYRINGE SUBCUT (18:55)
[2021-08-06 18:56] VITALS: BP 120/62; PULSE 88; RESP 19; TEMP 37.2; O2SAT 95
[2021-08-06 19:22] LABS: Glucose, Whole Blood 279 mg/dL (60-115)
[2021-08-06] MEDS: Pravastatin Sodium 40 MG TABLET PO (20:04)
[2021-08-06 22:33] LABS: Glucose, Whole Blood 223 mg/dL (60-115)
[2021-08-07] VITALS (8 sets, daily range): BP systolic 115–128; BP diastolic 61–75; PULSE 98–108; RESP 16–21; TEMP 37.4–38.1; O2SAT 89–94
--- NOTE | 2021-08-07 03:10 | PC.NURSE ---
REPORT TAKEN FROM TOBIAS RN, FIRST CONTACT WITH PT. RESTING IN BED SKIN PWD RESPIRATIONS EVEN UNLABORED.AWAITING BED ASSIGNMENT FOR ADMISSION. AWARE OF PLAN OF CARE.
[2021-08-07] MEDS: guaiFENesin DM 200/20/10 ML 10 ML SYRUP PO ×2 (06:49→13:26)
[2021-08-07 07:06] LABS: Basophils Percent Auto 0.1 % (0-2); Eosinophils Percent Auto 0.1 % (0-4); Hematocrit 37.5 % (42.0-52.0); Hemoglobin 11.7 g/dl (14.0-18.0); Imm Gran Abs Auto 0.03 X10*3/uL (0.00-0.03); Imm Gran Pct Auto 0.2 % (0.0-0.4); MANUAL DIFF FLAG SCAN; Mean Corpuscular HGB Conc 31.2 g/dl (31.0-36.0); Mean Corpuscular Hemoglobin 26.5 pg (27.0-33.0); Mean Platelet Volume 9.6 fL (9.4-12.4); Monocytes Absolute Auto 0.5 X10*3/uL (0.1-1.2); Monocytes Percent Auto 2.8 % (2-11); Neutrophils Absolute Auto 4.1 x10*3/uL (2.0-8.3); Neutrophils Percent Auto 23.8 % (45-73); Platelet Count 189 X10*3/uL (160-400); Red Blood Count 4.41 X10*6/uL (4.60-5.80); Red Cell Distribution Width 13.7 % (11.0-16.0); SCAN SMEAR FLAG 1; White Blood Count 17.3 X10*3/uL (4.8-10.8)
[2021-08-07 07:15] LABS: D Dimer High Sensitivity 212 NG/ML
[2021-08-07 07:17] LABS: Lymphocytes Absolute Auto 12.6 X10*3/uL (1.2-4.9)
[2021-08-07 07:20] LABS: Alanine Aminotransferase 14 U/L (0-40); Albumin Level 3.7 g/dL (3.5-5.0); Alkaline Phosphatase 50 U/L (39-117); Anion Gap 11 (12-20); Aspartate Amino Transferase 15 U/L (5-37); Bilirubin Total 0.2 mg/dL (0.0-1.0); Blood Urea Nitrogen 19 mg/dL (9-16); C Reactive Protein 5.62 mg/dL (< or = 0.50); Calcium 8.8 mg/dL (8.4-10.2); Carbon Dioxide 26 mmol/L (22-29); Chloride 105 mmol/L (96-108); Creatinine Clr Calc Pharmacy 81.2; Estimated Glomerular Filt Rate > 60; Glucose Random 154 mg/dL (60-115); Potassium 3.9 mmol/L (3.3-5.1); Sodium 138 mmol/L (135-145); Total Protein 5.9 g/dL (6.5-8.0)
[2021-08-07 07:28] LABS: Estimated Average Glucose 189 mg/dL; Hemoglobin A1c % 8.2 %
[2021-08-07 07:34] LABS: Glucose, Whole Blood 171 mg/dL (60-115)
[2021-08-07] MEDS: Insulin Lispro 100 UNIT/ML 3 ML VIAL SUBCUT ×2 (07:44→13:26)
[2021-08-07 07:46] LABS: SLIDE REVIEW VERIFIED
[2021-08-07 08:02] LABS: Procalcitonin 0.05 ng/mL
[2021-08-07] MEDS: Zinc Sulfate 220 MG CAPSULE PO (09:57)
[2021-08-07] MEDS: glipiZIDE 10 MG TABLET PO (09:57)
[2021-08-07] MEDS: Ascorbic Acid 500 MG TABLET PO (09:58)
[2021-08-07] MEDS: Aspirin Enteric Coated 81 MG TABLET.DR PO (09:58)
[2021-08-07] MEDS: Finasteride 5 MG TABLET PO (09:58)
[2021-08-07] MEDS: Famotidine 20 MG TABLET PO (09:59)
[2021-08-07] MEDS: Metoprolol Succinate ER 100 MG TAB.ER.24H PO (09:59)
[2021-08-07] MEDS: lisinopriL 20 MG TABLET PO (09:59)
[2021-08-07] MEDS: dexAMETHasone sod phosphate 4 MG/ML VIAL 6 MG IVPUSH (09:59)
--- NOTE | 2021-08-07 10:03 | PC.NURSE ---
resting quietly. dry cough noted. unlabored resp at rest. st on monitor 103. has been seen by Estuardo sneed and awaits resp assissment for home vaccinations in .
--- NOTE | 2021-08-07 13:12 | PM.DS ---
DS: Providers Provider Date of Service: 08/07/21 Date of admission: 08/05/21 18:29 Primary care physician: Chata Curiel MD Consults: 08/05/21 18:45 Consult to Infectious Diseases Routine Consulting Provider: Anne Laboy Reason for consultation: covid Has provider been notified: No DS: Diagnosis Discharge Diagnosis (1) COVID-19: Status: Acute (2) Hypoxia: Status: Acute DS: Summary Hospital Course Hospital Course: from admission H+P by hospitalist Mohamud Blankenship MD, 08/05/21: 71-year-old gentleman with past medical history of CLL in remission, hypertension, type 2 diabetes mellitus, hyperlipidemia patient diagnosed to have COVID-19 yesterday, he is vaccinated, presented to [facility] today since noted to have low oxygen level in 80s at home, used 's pulse oximetry, he is complaining of dry cough unable to bring up phlegm associated with shortness of breath and chest pain with coughing he denies associated lightheadedness dizziness, denies nausea vomiting abdominal pain or diarrhea denies fever chills or rigors complain of generalized body ache, in the emergency room noted to have finger oximetry 89% at rest, therefore placed on 2 L of oxygen receive IV Decadron and now being admitted to [facility] due to acute hypoxic respiratory failure with underlying risk factors of diabetes hypertension and CLL. This 71yo M with CLL + DM2 was admitted with hypoxia due to breakthrough COVID-19 infection with symptoms that started on 07/31/21. He required oxygen only briefly, and by the time of discharge, had been off of it for 24 hours. He was treated with dexamethasone for 2 days and will complete 8 more days as an outpatient. He should maintain isolation for 10 days from the onset of illness and follow up with his primary care doctor within 1 week by televisit. He was instructed to continue monitoring his SaO2 at home. Time Spent with Patient Time attestation: Total time spent providing and/or coordinating discharge services: Discharge coordination time: Greater than 30 minutes Quality: Stroke Does the patient have a stroke diagnosis?: No Physical Exam Vital Signs: Vital Signs: Last Vital Signs Temp 100.3 F 08/07/21 09:55 Pulse 108 H 08/07/21 09:59 Resp 18 08/07/21 09:55 BP 128/70 08/07/21 09:59 Pulse Ox 92 08/07/21 09:55 BMI result Body Mass Index 29.5 Gen: in no acute distress HEENT: sclera anicteric, moist mucus membranes Neck: supple Lungs: clear to auscultation bilaterally Heart: regular rate and rhythm, no murmurs Abd: soft, non-tender, non-distended Ext: no edema Skin: warm/well-perfused Neuro: alert and oriented x3, no focal findings Psych: appropriate affect DS: Data Data Completed and Pending Completed studies during hospitalization [Text1]: Laboratory Results WBC 17.3 X10*3/uL (4.8-10.8) H 08/07/21 06:46 RBC 4.41 X10*6/uL (4.60-5.80) L 08/07/21 06:46 Hgb 11.7 g/dl (14.0-18.0) L 08/07/21 06:46 Hct 37.5 % (42.0-52.0) L 08/07/21 06:46 MCV 85.0 fL (80.0-98.0) 08/07/21 06:46 MCH 26.5 pg (27.0-33.0) L 08/07/21 06:46 MCHC 31.2 g/dl (31.0-36.0) 08/07/21 06:46 RDW 13.7 % (11.0-16.0) 08/07/21 06:46 Plt Count 189 X10*3/uL (160-400) 08/07/21 06:46 MPV 9.6 fL (9.4-12.4) 08/07/21 06:46 Immature Gran % (Auto) 0.2 % (0.0-0.4) 08/07/21 06:46 Neut % (Auto) 23.8 % (45-73) L 08/07/21 06:46 Lymph % (Auto) 73.0 % (20-40) H 08/07/21 06:46 [place] % (Auto) 2.8 % (2-11) 08/07/21 06:46 Eos % (Auto) 0.1 % (0-4) 08/07/21 06:46 Baso % (Auto) 0.1 % (0-2) 08/07/21 06:46 Lymph # (Auto) 12.6 X10*3/uL (1.2-4.9) H 08/07/21 06:46 [place] # (Auto) 0.5 X10*3/uL (0.1-1.2) 08/07/21 06:46 Eos # (Auto) 0.0 X10*3/uL (0.0-0.4) 08/07/21 06:46 Baso # (Auto) 0.0 X10*3/uL (0.0-0.2) 08/07/21 06:46 Abs Immat Gran (auto) 0.03 X10*3/uL (0.00-0.03) 08/07/21 06:46 Absolute Neuts (auto) 4.1 x10*3/uL (2.0-8.3) 08/07/21 06:46 Absolute Nucleated RBC 0.000 X10*3/uL (0.0-0.012) 08/07/21 06:46 Nucleated RBC % (auto) 0.0 /100WBC (0.0-0.2) 08/07/21 06:46 Neutrophils % (Manual) 59 % (45-73) 08/05/21 16:04 Band Neutrophils % 3 % (3-5) 08/05/21 16:04 Lymphocytes % (Manual) 27 % (20-40) 08/05/21 16:04 Monocytes % (Manual) 8 % (2-11) 08/05/21 16:04 Eosinophils % (Manual) 1 % (0-4) 08/05/21 16:04 Basophils % (Manual) 2 % (0-2) 08/05/21 16:04 Abs Neuts (Manual) 11.0 X10*3/uL (2.0-8.3) H 08/05/21 16:04 Lymphocytes # (Manual) 4.8 X10*3/uL (1.2-4.9) 08/05/21 16:04 Monocytes # (Manual) 1.4 X10*3/uL (0.1-1.2) H 08/05/21 16:04 Eosinophils # (Manual) 0.2 X10*3/uL (0.0-0.4) 08/05/21 16:04 Basophils # (Manual) 0.4 X10*3/uL (0.0-0.2) H 08/05/21 16:04 Smudge Cells PRESENT 08/05/21 16:04 Platelet Estimate NORMAL (NORMAL) 08/05/21 16:04 Plt Morphology Comment NORMAL 08/05/21 16:04 RBC Morphology NORMAL 08/05/21 16:04 Smear Tech's Comments VERIFIED 08/07/21 06:46 D-Dimer High Sensitivty 212 NG/ML 08/07/21 06:46 Sodium 138 mmol/L (135-145) 08/07/21 06:46 Potassium 3.9 mmol/L (3.3-5.1) 08/07/21 06:46 Chloride 105 mmol/L (96-108) 08/07/21 06:46 Carbon Dioxide 26 mmol/L (22-29) 08/07/21 06:46 Anion Gap 11 (12-20) L 08/07/21 06:46 BUN 19 mg/dL (9-16) H 08/07/21 06:46 Creatinine 1.09 mg/dL (0.5-1.4) 08/07/21 06:46 Estim Creat Clear Calc 81.2 08/07/21 06:46 Estimated GFR > 60 08/07/21 06:46 POC Glucose 171 mg/dL (60-115) H 08/07/21 07:24 Random Glucose 154 mg/dL (60-115) H D 08/07/21 06:46 Estimat Average Glucose 189 mg/dL 08/07/21 06:46 Hemoglobin A1c % 8.2 % 08/07/21 06:46 Calcium 8.8 mg/dL (8.4-10.2) 08/07/21 06:46 Magnesium 1.7 mg/dL (1.6-2.6) 08/05/21 16:04 Total Bilirubin 0.2 mg/dL (0.0-1.0) 08/07/21 06:46 Direct Bilirubin 0.2 mg/dL (0.0-0.5) 08/05/21 16:04 AST 15 U/L (5-37) 08/07/21 06:46 ALT 14 U/L (0-40) 08/07/21 06:46 Alkaline Phosphatase 50 U/L (39-117) 08/07/21 06:46 C-Reactive Protein 5.62 mg/dL (< or = 0.50) H 08/07/21 06:46 Total Protein 5.9 g/dL (6.5-8.0) L 08/07/21 06:46 Albumin 3.7 g/dL (3.5-5.0) 08/07/21 06:46 Procalcitonin 0.05 ng/mL 08/07/21 06:46 Impressions Chest X-Ray 08/05/21 15:24 IMPRESSION: New atelectasis or small infiltrate at the left lung base. Discharge Plan Discharge Patient Disposition: Home, Self-Care Discharge Diagnosis: Covid-19 pneumonia, hypoxic respiratory failure Referrals: Chata Curiel MD [Primary Care Provider] - 1 Week Discharge Medications: New dexamethasone 6 mg tablet 6 mg PO DAILY Qty: 8 RF: 0 Continued amlodipine 10 mg tablet 10 mg PO DAILY Qty: 90 RF: 3 pravastatin 40 mg tablet 40 mg PO DAILY Qty: 90 RF: 3 glipizide 10 mg tablet 10 mg PO BID Qty: 180 RF: 3 lisinopril 20 mg tablet 20 mg PO DAILY Qty: 90 RF: 3 metoprolol succinate 100 mg tablet extended release 24 hr 100 mg PO DAILY Qty: 90 RF: 3 metformin 1,000 mg tablet 850 mg PO BID RF: 0 finasteride 5 mg tablet 1 tab PO DAILY RF: 0 aspirin 81 mg tablet,delayed release (DR/EC) 81 mg PO DAILY RF: 0 Discharge Orders: Discharge Order (Routine); Ordered 08/07/21 Ordered By: Rolanda Angulo Diet: advance to usual diet and diabetic diet Activity on Discharge: As tolerated Stand Alone Forms: Patient Portal Discharge page Care Plan Goals: recovery from breakthrough COVID-19 infection Health Concerns: COVID-19 infection Plan of Treatment: take dexamethasone 6 mg daily for 8 days monitor your oxygen saturation and return to hospital if <90% see your primary care doctor [by televisit] in 1 week maintain isolation for 10 days after onset of symptoms Assessment: see Discharge Summary
[2021-08-07 13:20] LABS: Glucose, Whole Blood 246 mg/dL (60-115)
--- NOTE | 2021-08-07 13:27 | P.CNID_ITS ---
History of Present Illness Data of Consult Service Date: 08/06/21 Requesting physician: Rolanda Angulo Primary Care Provider: Chata Curiel MD [facility] Reason for consult: shortness of breath He developed cough and shortness of breath 10 days ago He was positive for COVID He has received two vaccines for COVID but no booster shot. He is on roomair. Review of Systems Review of Systems: Yes all other systems are reviewed and are negative PMFSH Past Medical History Medical History Ascending aorta enlargement CLL (chronic lymphocytic leukemia) Colonoscopy refused DM type 2 (diabetes mellitus, type 2) (Unknown) HTN (hypertension) (Unknown) Hyperlipemia Family History Family History Father No problems noted. Mother Diabetes Family history: reviewed and not pertinent Surgical History Surgical History History of cholecystectomy (Unknown) History of repair of right rotator cuff (Unknown) Social History Social History Housing: House Alcohol intake: never Patient Tobacco Use Status: Former Tobacco user e-Cigarette/Vaping Use: Never Used Use of substances other than those prescribed or required for medical reasons: No Advance Directives: No Advance Directives Information Provided: Yes service: No Current occupational status: retired Meds Allergies Allergy/AdvReac Type Severity Reaction Status Date / Time atorvastatin [Lipitor] AdvReac Unknown back pain Verified 08/04/21 10:46 Active Medications: Current Medications Acetaminophen (Acetaminophen 325 Mg Tablet) 650 mg PO Q6H PRN PRN Reason: Pain, Mild (Pain Scale 1-3) Ascorbic Acid (Ascorbic Acid 500 Mg Tablet) 500 mg PO DAILY [facility] Last Admin: 08/07/21 09:58 Dose: 500 mg Documented by: Aspirin (Aspirin Enteric Coated 81 Mg Tablet.) 81 mg PO DAILY [facility] Last Admin: 08/07/21 09:58 Dose: 81 mg Documented by: Dexamethasone Sodium Phosphate (Dexamethasone Sod Phosphate 4 Mg/Ml Vial) 6 mg IVPUSH DAILY [facility] Last Admin: 08/07/21 09:59 Dose: 6 mg Documented by: Dextrose (Dextrose 50 % 25 Gm/50 Ml Vial) 25 gm IVPUSH Q15M PRN; Protocol PRN Reason: per Hypoglycemia Standing Ord. Enoxaparin Sodium (Enoxaparin Sodium 40 Mg/0.4 Ml Syringe) 40 mg SUBCUT Q24H [facility] Last Admin: 08/06/21 18:55 Dose: 40 mg Documented by: Famotidine (Famotidine 20 Mg Tablet) 20 mg PO BID [facility] Last Admin: 08/07/21 09:59 Dose: 20 mg Documented by: Finasteride (Finasteride 5 Mg Tablet) 5 mg PO DAILY [facility] Last Admin: 08/07/21 09:58 Dose: 5 mg Documented by: Glipizide (Glipizide 10 Mg Tablet) 10 mg PO BID [facility] Last Admin: 08/07/21 09:57 Dose: 10 mg Documented by: Glucose (Glucose Gel 15 Gm Gel..Gram.) 15 gm PO Q15M PRN; Protocol PRN Reason: per Hypoglycemia Standing Ord. Guaifenesin/Dextromethorphan (Guaifenesin Dm 200/20/10 Ml 10 Ml Syrup) 10 ml PO Q6H [facility] Last Admin: 08/07/21 06:49 Dose: 10 ml Documented by: Insulin Human Lispro (Insulin Lispro 100 Unit/Ml 3 Ml Vial) 0 unit SUBCUT QIDACHS [facility]; Protocol Last Admin: 08/07/21 07:44 Dose: 2 unit Documented by: Lisinopril (Lisinopril 20 Mg Tablet) 20 mg PO DAILY [facility]; Protocol Last Admin: 08/07/21 09:59 Dose: 20 mg Documented by: Metoprolol Succinate (Metoprolol Succinate Er 100 Mg Tab.Er.24h) 100 mg PO DAILY [facility]; Protocol Last Admin: 08/07/21 09:59 Dose: 100 mg Documented by: Ondansetron HCl (Ondansetron Hcl 4 Mg/2 Ml Vial) 4 mg IVPUSH Q8H PRN PRN Reason: Nausea and Vomiting Pravastatin Sodium (Pravastatin Sodium 40 Mg Tablet) 40 mg PO BEDTIME [facility] Last Admin: 08/06/21 20:04 Dose: 40 mg Documented by: Sodium Chloride (0.9 % Sodium Chloride Flush 3 Ml Syringe) 3 ml IVFLUSH QSHIFT [facility] Last Admin: 08/07/21 09:57 Dose: Not Given Documented by: Zinc Sulfate (Zinc Sulfate 220 Mg Capsule) 220 mg PO DAILY [facility] Last Admin: 08/07/21 09:57 Dose: 220 mg Documented by: Home Medications Medication Instructions Recorded Confirmed Last Taken Type aspirin 81 mg tablet,delayed 81 mg PO DAILY 05/19/20 08/05/21 08/05/21 History release finasteride 5 mg tablet 1 tab PO DAILY 08/05/21 08/05/21 Unknown History metformin 1,000 mg tablet 850 mg PO BID 08/05/21 08/05/21 08/05/21 08:00 History Physical Exam Vital Signs: Vital Signs: Last Vital Signs Temp 99.9 F 08/07/21 13:13 Pulse 98 08/07/21 13:13 Resp 21 H 08/07/21 13:13 BP 121/75 08/07/21 13:13 Pulse Ox 89 L 08/07/21 13:13 BMI result Body Mass Index 29.5 Const: General: cooperative Eyes: General: appearance normal, both eyes and all related structures Resp: Effort & Inspection: normal respiratory effort Cardio: Rate: regular rate Rhythm: regular rhythm GI: Palpation (GI): Soft to palpation and nontender Skin: General skin exam: no rashes or lesions noted Results Labs CBC & Chem 7: 08/07/21 06:46 08/07/21 06:46 Labs: Short CBC 08/07/21 Range/Units 06:46 WBC 17.3 H (4.8-10.8) X10*3/uL Hgb 11.7 L (14.0-18.0) g/dl Hct 37.5 L (42.0-52.0) % Plt Count 189 (160-400) X10*3/uL BMP 08/07/21 06:46 Sodium 138 Potassium 3.9 Chloride 105 Carbon Dioxide 26 BUN 19 H Creatinine 1.09 Calcium 8.8 Liver Function 08/07/21 Range/Units 06:46 Total Bilirubin 0.2 (0.0-1.0) mg/dL AST 15 (5-37) U/L ALT 14 (0-40) U/L Alkaline Phosphatase 50 (39-117) U/L Albumin 3.7 (3.5-5.0) g/dL Assessment and Plan (1) COVID-19: Status: Acute COVID with mostly no hypoxia on room air He has been vaccinated. He has been feeling better. (2) Hypoxia: Status: Acute Would not give Remdesivir Oxygen if needed.
--- NOTE | 2021-08-07 14:19 | PC.NURSE ---
Pt resting quietly/ states he feels well enought to go home. ride will arrive around 1500.
== END 2021-08-07 16:16 | disposition home or self-care (01) | DRG 177 ==
LOC: HO.ED 17:20 → HO.EDOVER 18:42
PROVIDERS: Physician Assistant; Admitting Provider Hospitalist; Emergency Provider Emergency Medicine; PCP Internal Medicine; Visit Provider Family Medicine
DX: U07.1 COVID-19 (principal); J96.01 Acute respiratory failure with hypoxia; C91.11 Chronic lymphocytic leukemia of B-cell type in remission; E78.5 Hyperlipidemia, unspecified; E11.9 Type 2 diabetes mellitus without complications; Z79.82 Long term (current) use of aspirin; Z79.84 Long term (current) use of oral hypoglycemic drugs; Z79.899 Other long term (current) drug therapy
CPT/HCPCS: 36415; 71045; 80048; 80053; 80076; 82947; 83036; 83735; 84145; 85007; 85025; 85027; 85379; 86140; 93005; 99219; 99285; J1100; J1650

== ENCOUNTER 2021-08-14 09:20 | Outpatient (REF) | payer MEDICARE, SELFPAY ==
--- NOTE | ~2021-08-14 | XR_ITS ---
EXAMINATION: XR CHEST CLINICAL INFORMATION: Cough COMPARISON: Previous chest x-ray most recent 08/05/2021 TECHNIQUE: 2 views of the chest were obtained. FINDINGS: The cardiac and mediastinal contours are stable. The lung volumes are normal. There is new airspace disease seen in the peripheral right midlung. There is increasing airspace disease seen at the left lung base. There is no pleural effusion or pneumothorax. There are degenerative changes of the spine. XR/XR chest 2V IMPRESSION: Worsening bilateral pneumonia.
== END 2021-08-14 09:21 | disposition home or self-care (01) ==
LOC: HO.HMGCX 09:20
PROVIDERS: PCP Internal Medicine; Visit Provider Internal Medicine
DX: R05.9 Cough, unspecified (principal)
CPT/HCPCS: 71046

== ENCOUNTER → 2021-08-15 13:38 | Outpatient (BNVA) | payer MEDICARE, SELFPAY | PROVIDERS: PCP Internal Medicine; Visit Provider Urology | DX: R97.20 Elevated prostate specific antigen [PSA] (principal); N40.1 Benign prostatic hyperplasia with lower urinary tract symptoms; N13.8 Other obstructive and reflux uropathy | CPT/HCPCS: Q3014 ==

== ENCOUNTER 2021-10-22 06:15 | Outpatient (REF) | payer MEDICARE, SELFPAY ==
[2021-10-22 11:36] LABS: Hematocrit 41.3 % (42.0-52.0); Hemoglobin 12.3 g/dl (14.0-18.0); Mean Corpuscular HGB Conc 29.8 g/dl (31.0-36.0); Mean Corpuscular Hemoglobin 25.8 pg (27.0-33.0); Mean Corpuscular Volume 86.8 fL (80.0-98.0); Mean Platelet Volume 10.7 fL (9.4-12.4); Platelet Count 195 X10*3/uL (160-400); Red Blood Count 4.76 X10*6/uL (4.60-5.80); Red Cell Distribution Width 14.4 % (11.0-16.0); White Blood Count 13.4 X10*3/uL (4.8-10.8)
[2021-10-22 11:49] LABS: Estimated Average Glucose 160 mg/dL; Hemoglobin A1c % 7.2 %
[2021-10-22 11:53] LABS: Alanine Aminotransferase 23 U/L (0-40); Albumin Level 4.2 g/dL (3.5-5.0); Alkaline Phosphatase 50 U/L (39-117); Anion Gap 12 (12-20); Aspartate Amino Transferase 17 U/L (5-37); Bilirubin Total 0.6 mg/dL (0.0-1.0); Blood Urea Nitrogen 15 mg/dL (9-16); Calcium 9.2 mg/dL (8.4-10.2); Carbon Dioxide 25 mmol/L (22-29); Chloride 107 mmol/L (96-108); Cholesterol 164 mg/dL; Estimated Glomerular Filt Rate > 60; Glucose Fasting 130 mg/dL (60-99); HDL Cholesterol 45 mg/dL; LDL Cholesterol Calculated 97 mg/dl; Sodium 140 mmol/L (135-145); Total Protein 6.4 g/dL (6.5-8.0); Triglycerides 111 mg/dL
== END 2021-10-22 06:16 | disposition home or self-care (01) ==
LOC: HO.HMGCLDS 06:15
PROVIDERS: Visit Provider Internal Medicine
DX: E11.9 Type 2 diabetes mellitus without complications (principal); I10 Essential (primary) hypertension; E78.5 Hyperlipidemia, unspecified
CPT/HCPCS: 36415; 80053; 80061; 82043; 83036; 85027

== ENCOUNTER 2022-02-12 07:10 | Outpatient (REF) | payer MEDICARE, SELFPAY ==
[2022-02-12 11:57] LABS: Estimated Average Glucose 177 mg/dL; Hemoglobin A1c % 7.8 %
[2022-02-12 12:40] LABS: Creatinine Urine 178.87 mg/dL; Microalbum/Creatinine Ratio Ur 19.5 ug/mg cr
[2022-02-12 12:48] LABS: Alanine Aminotransferase 16 U/L (0-40); Albumin Level 4.1 g/dL (3.5-5.0); Alkaline Phosphatase 47 U/L (39-117); Anion Gap 12 (12-20); Aspartate Amino Transferase 11 U/L (5-37); Bilirubin Total 0.4 mg/dL (0.0-1.0); Blood Urea Nitrogen 20 mg/dL (9-16); Calcium 8.9 mg/dL (8.4-10.2); Carbon Dioxide 23 mmol/L (22-29); Chloride 109 mmol/L (96-108); Cholesterol 231 mg/dL; Estimated Glomerular Filt Rate > 60; Glucose Fasting 217 mg/dL (60-99); HDL Cholesterol 40 mg/dL; LDL Cholesterol Calculated 153 mg/dl; Potassium 4.7 mmol/L (3.3-5.1); Sodium 139 mmol/L (135-145); Total Protein 6.4 g/dL (6.5-8.0); Triglycerides 193 mg/dL
[2022-02-12 12:56] LABS: Prostate Specific Antigen 4.54 ng/mL (<0.05-4.0)
== END 2022-02-12 07:11 | disposition home or self-care (01) ==
LOC: HO.HMGCLDS 07:10
PROVIDERS: PCP Internal Medicine; Visit Provider Urology
DX: E11.9 Type 2 diabetes mellitus without complications (principal); I10 Essential (primary) hypertension; E78.5 Hyperlipidemia, unspecified; R97.20 Elevated prostate specific antigen [PSA]; Z12.5 Encounter for screening for malignant neoplasm of prostate
CPT/HCPCS: 36415; 80053; 80061; 82043; 83036; 84153

== ENCOUNTER → 2022-02-19 14:33 | Outpatient (BNVA) | payer MEDICARE, SELFPAY | PROVIDERS: PCP Internal Medicine; Visit Provider Urology | DX: N40.1 Benign prostatic hyperplasia with lower urinary tract symptoms (principal); N13.8 Other obstructive and reflux uropathy; R97.20 Elevated prostate specific antigen [PSA] | CPT/HCPCS: 51798; 99212 ==

== ENCOUNTER 2022-03-28 07:25 | Outpatient (REF) | payer MEDICARE, SELFPAY ==
[2022-03-28 07:41] VITALS: BP 136/75; PULSE 72; RESP 16; TEMP 36.8; O2SAT 98
[2022-03-28 07:43] VITALS: BMI 28.7
--- NOTE | 2022-03-28 08:26 | W.PM.OPN ---
Operative Note Operative Note Date of Service: 03/28/22 Narrative: Preoperative diagnosis: Elevated PSA Postoperative diagnosis: Elevated PSA Procedure: 1. transrectal ultrasound measurement of prostate 2. transrectal ultrasound-guided pudendal nerve block 3. transrectal ultrasound-guided prostate biopsy 12 core Surgeon: Dr. Haim Schmitt Anesthetic: Local Indications for procedure: Elevated PSA 4.5 on finasteride Procedure: After informed consent was verified, the patient was brought into the procedure area and lay left-hand side down on the table. Patient identity confirmed. Perioperative antibiotics confirmed. Iodine 10cc with Gel was placed per rectum Ultrasound probe was placed per rectum The prostate was measured in 3 dimensions Total volume equals 165 gm There were small scattered cystic structures and no calcifications noted and the prostate was homogeneous in nature A ultrasound-guided pudendal nerve block was performed using 10 cc of 1% lidocaine. 8 cc was placed at the base and 2 cc of the apex. A 12 core biopsy was performed with 6 cores each side. Two cores were taken at the apex, mid and base. Cores were spaced between lateral and medial. He tolerated the procedure well. Was able to ambulate to bathroom after 5 minutes. Printed instructions regarding antibiotic use and common side effects such as low-grade temperature and bleeding were given Pathology: 12 core prostate biopsy.
[2022-03-28 08:35] VITALS: BP 139/73; PULSE 75; RESP 16; O2SAT 97
== END 2022-03-28 07:26 | disposition home or self-care (01) ==
LOC: HO.MS 07:25
PROVIDERS: PCP Internal Medicine; Visit Provider Urology
PROC: (CPT 55700; principal; 2022-03-28 08:00)
DX: R97.20 Elevated prostate specific antigen [PSA] (principal); N40.1 Benign prostatic hyperplasia with lower urinary tract symptoms; N13.8 Other obstructive and reflux uropathy; E11.9 Type 2 diabetes mellitus without complications; C91.10 Chronic lymphocytic leukemia of B-cell type not having achieved remission; I10 Essential (primary) hypertension; Z88.8 Allergy status to other drugs, medicaments and biological substances; Z87.891 Personal history of nicotine dependence
CPT/HCPCS: 55700; 76942; 88305

== ENCOUNTER → 2022-04-05 08:36 | Outpatient (BNVA) | payer MEDICARE, SELFPAY | PROVIDERS: PCP Internal Medicine; Visit Provider Urology | DX: N40.1 Benign prostatic hyperplasia with lower urinary tract symptoms (principal); N13.8 Other obstructive and reflux uropathy; R97.20 Elevated prostate specific antigen [PSA] | CPT/HCPCS: Q3014 ==

== ENCOUNTER 2022-06-08 08:09 | Outpatient (REF) | payer MEDICARE, SELFPAY ==
[2022-06-08 12:10] LABS: Estimated Average Glucose 157 mg/dL; Hemoglobin A1c % 7.1 %
[2022-06-08 12:20] LABS: Creatinine Urine 141.07 mg/dL; Microalbum/Creatinine Ratio Ur 16.3 ug/mg cr
[2022-06-08 12:32] LABS: Alanine Aminotransferase 18 U/L (0-40); Albumin Level 4.2 g/dL (3.5-5.0); Alkaline Phosphatase 45 U/L (39-117); Anion Gap 15 (12-20); Aspartate Amino Transferase 13 U/L (5-37); Bilirubin Total 0.4 mg/dL (0.0-1.0); Blood Urea Nitrogen 17 mg/dL (9-16); Carbon Dioxide 25 mmol/L (22-29); Chloride 105 mmol/L (96-108); Cholesterol 192 mg/dL; Estimated Glomerular Filt Rate > 60; Glucose Fasting 147 mg/dL (60-99); HDL Cholesterol 40 mg/dL; LDL Cholesterol Calculated 126 mg/dl; Potassium 4.4 mmol/L (3.3-5.1); Sodium 141 mmol/L (135-145); Total Protein 6.4 g/dL (6.5-8.0); Triglycerides 132 mg/dL
== END 2022-06-08 08:10 | disposition home or self-care (01) ==
LOC: HO.HMGCLDS 08:09
PROVIDERS: PCP Internal Medicine; Visit Provider Internal Medicine
DX: E78.5 Hyperlipidemia, unspecified (principal); I10 Essential (primary) hypertension; E11.9 Type 2 diabetes mellitus without complications
CPT/HCPCS: 36415; 80053; 80061; 82043; 83036

== ENCOUNTER → 2022-06-26 09:02 | Outpatient (REF) | payer MEDICARE, SELFPAY ==
--- NOTE | 2022-06-26 09:05 | CA_ITS ---
Transthoracic Echocardiogram Patient (Last, First, Middle): Edmond Mata, Gender: Male Date of : 1950 Age: 72 Procedure Date: 06/26/2022 Procedure Type: Transthoracic Echocardiogram Location: OP Height: 190.5 cm Weight: 99.79 kg BSA: 2.29 m2 Heart Rate: 59 bpm BP: 125 / 72 mmHg Bioinformatics Assistant: TO Referring MD: Chata Curiel MD Symptoms: I77.89 - Other specified disorders of arteries and arterioles Study Quality: Fair/Contrast ECG Rhythm: Sinus Conclusions: - The left ventricular systolic function is normal. The calculated ejection fraction is 55% by biplane method. - No obvious valvular pathology seen on this study. Findings Procedure Information Contrast agent, definity, is being given per protocol without apparent complications. Left Ventricle Normal left ventricular cavity size. The left ventricular systolic function is normal. The calculated ejection fraction is 55% by biplane method. There is no evidence of regional wall motion abnormalities. Diastolic function is normal for age. There is mild septal asymmetric hypertrophy. Right Ventricle Normal right ventricular cavity size and systolic function. Atria Mild biatrial enlargement. Aortic Valve There is a normal trileaflet aortic valve. There is no aortic valve stenosis. There is trace (trivial) aortic valve regurgitation. Mitral Valve The mitral valve appears normal. There is no mitral valve regurgitation. There is no mitral valve stenosis. Pulmonic Valve There is trace pulmonic valve regurgitation. Tricuspid Valve Normal tricuspid valve structure. There is trace tricuspid valve regurgitation. There is no evidence of pulmonary hypertension. Great Vessels The aortic annulus, sinuses of valsalva, and asc aorta are normal in size. Venous The inferior vena cava is normal in size and collapses less than 50% with inspiration. Pericardium/Pleural There is no evidence of pericardial effusion. Prior Study Comparison No prior study available for comparison. Recommendations, Care & Conclusions No obvious valvular pathology seen on this study. Measurements 2D Linear Measurements IVSd: 1.15 0.6-0.9/0.6-1.0 cm LVIDd: 5.90 3.9-5.3/4.2-5.9 cm LVIDd Index: 2.58 2.4-3.2/2.2-3.1 cm/m2 LVIDs: 3.69 2.0-3.6 cm LVPWd: 0.88 0.7-1.1 cm LA Diam: 4.20 2.7-3.8/3.0-4.0 cm LAIDs Index: 1.83 1.5-2.3 cm/m2 LV Mass: 304.64 67-162/88-224 g LV Mass Index: 133.03 43-95/49-115 g/m2 LVOT Diam: 2.30 3.0+(-)1.3 cm 2D Systolic Function EF 4C: 49.00 >55% EF 2C: 60.90 >55% EF BiP: 55.20 >55% Mitral Valve MV Pk E: 0.36 MV PK A: 0.45 MV Decel Time: 254.00 E/A: 0.80 E'Lateral: 6.85 E'Medial: 5.66 E/E' Med: 6.40 E/E' Lat: 5.30 PHT: 74.00 MVA PHT: 2.97 Decel Har[place]on: 1.42 Aortic Valve AoV Pk [place]: 1.00 AoV Mn [place]: 0.71 AoV VTI: 0.23 AoV Pk Grad: 4.00 Aov Mn Grad: 2.00 KIKO Cont.VTI: 3.69 LVOT LVOT Pk [place]: 0.86 LVOT Mn [place]: 0.56 LVOT VTI: 0.20 LVOT Pk Grad: 3.00 LVOT Mn Grad: 1.00 LVOT Diam: 2.30 LVOT Area: 4.15 Diastolic Function MV Pk E: 0.36 MV Pk A: 0.45 E/A: 0.80 E'Medial: 5.66 E/E' Med: 6.40 E' Laterial: 6.85 E/E' Lat: 5.30 Right Ventricle TAPSE (mm): 25.80 TVS' [place]: 10.20 Tricuspid Valve TR Pk [place]: 2.43 TR Pk Grad: 24.00 RA Press: 8.00 RVSP: 32.00 Great Vessels Aorta Sinus of Valsalva: 4.32 2.0-3.[address] [place]: 2.99 1.7-3.4 cm Ao Asc: 3.60 2.1-3.4 cm Updated in Other Vendor System with Status of Final Santos Prabhakar MD electronically signed on 06/27/2022 2:06:53 PM with status of Final
== END ==
LOC: HO.CARD 09:02
PROVIDERS: PCP Internal Medicine; Visit Provider Internal Medicine
DX: I77.89 Other specified disorders of arteries and arterioles (principal)
CPT/HCPCS: 93306; Q9957

== ENCOUNTER 2022-10-04 08:57 | Outpatient (REF) | payer MEDICARE, SELFPAY ==
[2022-10-04 11:58] LABS: Basophils Absolute Auto 0.1 X10*3/uL (0.0-0.2); Basophils Percent Auto 0.3 % (0-2); Eosinophils Absolute Auto 0.1 X10*3/uL (0.0-0.4); Eosinophils Percent Auto 0.4 % (0-4); Hematocrit 41.7 % (42.0-52.0); Hemoglobin 12.8 g/dl (14.0-18.0); Imm Gran Abs Auto 0.04 X10*3/uL (0.00-0.03); Imm Gran Pct Auto 0.2 % (0.0-0.4); Lymphocytes Percent Auto 80.1 % (20-40); MANUAL DIFF FLAG SCAN; Mean Corpuscular HGB Conc 30.7 g/dl (31.0-36.0); Mean Corpuscular Hemoglobin 26.4 pg (27.0-33.0); Mean Platelet Volume 10.5 fL (9.4-12.4); Monocytes Absolute Auto 0.4 X10*3/uL (0.1-1.2); Monocytes Percent Auto 2.1 % (2-11); Neutrophils Percent Auto 16.9 % (45-73); Platelet Count 195 X10*3/uL (160-400); Red Blood Count 4.85 X10*6/uL (4.60-5.80); Red Cell Distribution Width 14.2 % (11.0-16.0); SCAN SMEAR FLAG 1; White Blood Count 17.6 X10*3/uL (4.8-10.8)
[2022-10-04 11:59] LABS: Lymphocytes Absolute Auto 14.1 X10*3/uL (1.2-4.9)
[2022-10-04 12:19] LABS: SLIDE REVIEW VERIFIED
[2022-10-04 12:22] LABS: Estimated Average Glucose 183 mg/dL
[2022-10-04 12:24] LABS: Creatinine Urine 82.93 mg/dL; Microalbum/Creatinine Ratio Ur 13.2 ug/mg cr
[2022-10-04 12:25] LABS: Cholesterol 205 mg/dL; HDL Cholesterol 42 mg/dL; LDL Cholesterol Calculated 129 mg/dl; Triglycerides 174 mg/dL
[2022-10-04 12:31] LABS: PSA,Total (Free>4and<10) 4.53 ng/mL (0.00-4.00)
[2022-10-07 11:03] LABS: Free Prostate Spec Ag 1.2 ng/mL; Percent Free Prostate Spec Ag 27 % (calc) (>25); Prostate Specific Ag Total 4.4 ng/mL (< OR = 4.0)
== END 2022-10-04 08:58 | disposition home or self-care (01) ==
LOC: HO.HMGCLDS 08:57
PROVIDERS: Absent Provider Urology; PCP Internal Medicine; Visit Provider Internal Medicine
DX: Z12.5 Encounter for screening for malignant neoplasm of prostate (principal); R97.20 Elevated prostate specific antigen [PSA]; N13.8 Other obstructive and reflux uropathy; N40.1 Benign prostatic hyperplasia with lower urinary tract symptoms; E11.9 Type 2 diabetes mellitus without complications; E78.5 Hyperlipidemia, unspecified; I10 Essential (primary) hypertension; I77.89 Other specified disorders of arteries and arterioles
CPT/HCPCS: 36415; 80061; 82043; 83036; 84153; 84154; 85025

== ENCOUNTER → 2022-10-11 08:42 | Outpatient (BNVA) | payer MEDICARE, SELFPAY | PROVIDERS: PCP Internal Medicine; Visit Provider Urology | DX: N40.1 Benign prostatic hyperplasia with lower urinary tract symptoms (principal); N13.8 Other obstructive and reflux uropathy | CPT/HCPCS: Q3014 ==

== ENCOUNTER → 2022-10-24 08:16 | Outpatient (REF) | payer MEDICARE, SELFPAY ==
--- NOTE | 2022-10-24 08:19 | CA_ITS ---
Acquisition Time: 2022-10-24 08:28:28 Total Exercise Time: 00:06:17 Test Indications: CP Medications: SEE CHART Protocol: ANDRES Max HR: 153 BPM 102% of Pred: 149 BPM Max BP: 176/076 mmHG Max Work Load: 7.4 METS Exercise stress test using Andres protocol, total of 6 m in 17 sec, METS 7.40, HR up to 102 % of TAPHR. Pt tolerated well, denies any SOB, no CP. EKG without arrhythmias, no ischemic changes seen during exercise or in recovery. Normotensive response to exercise. Test reviewed with Dr. De Jesus. Referred By: Chata Curiel Overread By: Viktoria Emerson NP
== END ==
LOC: HO.CARD 08:16
PROVIDERS: Visit Provider Internal Medicine
DX: R07.9 Chest pain, unspecified (principal); I10 Essential (primary) hypertension; E11.9 Type 2 diabetes mellitus without complications; E78.5 Hyperlipidemia, unspecified
CPT/HCPCS: 93017

== ENCOUNTER → 2022-10-30 10:36 | Outpatient (BNVA) | payer SELFPAY | PROVIDERS: PCP Internal Medicine; Visit Provider Physician Assistant Medical | DX: Z02.79 Encounter for issue of other medical certificate (principal) ==

== ENCOUNTER 2022-12-31 09:06 | Outpatient (REF) | payer MEDICARE, SELFPAY ==
[2022-12-31 11:30] LABS: Basophils Percent Auto 0.2 % (0-2); Eosinophils Absolute Auto 0.1 X10*3/uL (0.0-0.4); Eosinophils Percent Auto 0.4 % (0-4); Hematocrit 41.5 % (42.0-52.0); Hemoglobin 12.7 g/dl (14.0-18.0); Imm Gran Abs Auto 0.02 X10*3/uL (0.00-0.03); Imm Gran Pct Auto 0.1 % (0.0-0.4); Lymphocytes Percent Auto 80.6 % (20-40); MANUAL DIFF FLAG SCAN; Mean Corpuscular HGB Conc 30.6 g/dl (31.0-36.0); Mean Corpuscular Hemoglobin 26.6 pg (27.0-33.0); Mean Platelet Volume 10.5 fL (9.4-12.4); Monocytes Absolute Auto 0.4 X10*3/uL (0.1-1.2); Monocytes Percent Auto 2.3 % (2-11); Neutrophils Absolute Auto 2.5 x10*3/uL (2.0-8.3); Neutrophils Percent Auto 16.4 % (45-73); Platelet Count 170 X10*3/uL (160-400); Red Blood Count 4.77 X10*6/uL (4.60-5.80); Red Cell Distribution Width 13.9 % (11.0-16.0); SCAN SMEAR FLAG 1; White Blood Count 15.6 X10*3/uL (4.8-10.8)
[2022-12-31 11:33] LABS: Lymphocytes Absolute Auto 12.6 X10*3/uL (1.2-4.9)
[2022-12-31 12:15] LABS: Estimated Average Glucose 163 mg/dL; Hemoglobin A1c % 7.3 %
[2022-12-31 12:36] LABS: Alanine Aminotransferase 24 U/L (0-40); Albumin Level 4.3 g/dL (3.5-5.0); Alkaline Phosphatase 52 U/L (39-117); Anion Gap 12 (12-20); Aspartate Amino Transferase 15 U/L (5-37); Bilirubin Total 0.7 mg/dL (0.0-1.0); Blood Urea Nitrogen 16 mg/dL (9-16); Calcium 9.2 mg/dL (8.4-10.2); Carbon Dioxide 25 mmol/L (22-29); Chloride 110 mmol/L (96-108); Cholesterol 209 mg/dL; Estimated Glomerular Filt Rate > 60; Glucose Fasting 132 mg/dL (60-99); HDL Cholesterol 40 mg/dL; LDL Cholesterol Calculated 137 mg/dl; Potassium 4.8 mmol/L (3.3-5.1); Sodium 142 mmol/L (135-145); Total Protein 6.4 g/dL (6.5-8.0); Triglycerides 161 mg/dL
[2022-12-31 12:39] LABS: Creatinine Urine 259.11 mg/dL; Microalbum/Creatinine Ratio Ur 33.5 ug/mg cr
[2022-12-31 13:13] LABS: SLIDE REVIEW VERIFIED
== END 2022-12-31 09:07 | disposition home or self-care (01) ==
LOC: HO.HMGCLDS 09:06
PROVIDERS: PCP Internal Medicine; Visit Provider Internal Medicine
DX: E11.9 Type 2 diabetes mellitus without complications (principal); I10 Essential (primary) hypertension; E78.5 Hyperlipidemia, unspecified
CPT/HCPCS: 36415; 80053; 80061; 82043; 83036; 85025

== ENCOUNTER 2023-01-09 10:48 | Outpatient (REF) | payer MEDICARE, SELFPAY ==
--- NOTE | ~2023-01-09 | MR_ITS ---
EXAMINATION: MR BRAIN WITHOUT CONTRAST CLINICAL INFORMATION: Central retinal artery occlusion. COMPARISON: None available. TECHNIQUE: Multiplanar, multisequence imaging of the brain was performed without intravenous contrast. FINDINGS: There is no acute infarction, hemorrhage, mass, or extra-axial fluid collection. There is mild degree of brain parenchymal volume loss. Mild nonspecific T2/FLAIR hyperintensity seen within the cerebral white matter. The major arterial flow voids are preserved at the skull base. The orbital contents appear normal. There is polypoid mucosal thickening within the paranasal sinuses. Incidentally noted are numerous prominent to enlarged lymph nodes within the upper cervical chains. Prominent intraparotid lymph nodes are also noted. MR/MR head/brain wo con IMPRESSION: No acute intracranial abnormality identified. Specifically, no infarct is seen. Incidentally noted numerous prominent to enlarged lymph nodes within the upper cervical chains which could represent underlying lymphoproliferative disorder.
== END 2023-01-09 10:49 | disposition home or self-care (01) ==
LOC: HO.MRI 10:48
PROVIDERS: PCP Internal Medicine; Visit Provider Internal Medicine
DX: I63.9 Cerebral infarction, unspecified (principal)
CPT/HCPCS: 70551

== ENCOUNTER 2023-01-29 15:13 | Outpatient (REF) | payer MEDICARE, SELFPAY ==
--- NOTE | ~2023-01-29 | US_ITS ---
EXAMINATION: US EXTRACRANIAL CAROTID DUPLEX, BILATERAL CLINICAL INFORMATION: Bilateral carotid bruits, CVA. Diabetes. Hyperlipidemia. Hypertension. Previous tobacco. COMPARISON: MRI head 01/09/2023. TECHNIQUE: Real-time ultrasound and Doppler techniques (integrating B-mode 2-D vascular images, Doppler spectral analysis and color-flow Doppler imaging) were utilized to interrogate the extracranial carotid arteries, the vertebral arteries and proximal subclavian arteries bilaterally. The degree of stenosis is determined by criteria similar to NASCET. FINDINGS: Right Side: 1. There is no atherosclerotic plaque seen in the bifurcation/proximal ICA region. 2. The common carotid artery PSV proximally is 88 cm/s and distally 68 cm/s. 3. The proximal internal carotid artery velocities are 47 cm/s systolic and 13 cm/s diastolic. 4. The proximal external carotid artery PSV is 88 cm/s. 5. The vertebral artery shows antegrade flow. 6. The subclavian artery waveforms are normal. Left Side: 1. There is mild atherosclerotic plaque seen in the bifurcation/proximal ICA region. 2. The common carotid artery PSV proximally is 85 cm/s and distally 76 cm/s. 3. The proximal internal carotid artery velocities are 53 cm/s systolic and 18 cm/s diastolic. 4. The proximal external carotid artery PSV is 69 cm/s. 5. The vertebral artery shows antegrade flow. 6. The subclavian artery waveforms are normal. US/US carotid duplex BI IMPRESSION: 1. RIGHT: Normal right internal carotid artery without atherosclerotic plaque or hemodynamically significant stenosis. 2. LEFT: Minimal, non-hemodynamically significant stenosis of the proximal left internal carotid artery corresponding to a 0-49% stenosis by velocity criteria. 3. Bilateral cervical adenopathy similar to recent MRI brain.
== END 2023-01-29 15:14 | disposition home or self-care (01) ==
LOC: HO.HMGCX 15:13
PROVIDERS: PCP Internal Medicine; Visit Provider Internal Medicine
DX: I63.9 Cerebral infarction, unspecified (principal); R09.89 Other specified symptoms and signs involving the circulatory and respiratory systems
CPT/HCPCS: 93880

== ENCOUNTER 2023-03-22 07:55 | Outpatient (REF) | payer MEDICARE, SELFPAY ==
[2023-03-22 11:50] LABS: Prostate Specific Antigen 3.28 ng/mL (<0.05-4.0)
== END 2023-03-22 07:56 | disposition home or self-care (01) ==
LOC: HO.HMGCLDS 07:55
PROVIDERS: PCP Internal Medicine; Visit Provider Urology
DX: Z12.5 Encounter for screening for malignant neoplasm of prostate (principal); R97.20 Elevated prostate specific antigen [PSA]
CPT/HCPCS: 36415; 84153

== ENCOUNTER 2023-04-11 08:38 | Outpatient (AMB) | payer MEDICARE, SELFPAY ==
--- NOTE | 2023-04-11 08:53 | MHC.OFFVIS ---
Intake Intake Visit Reasons: 6M PSA(set) Intake Note: Patient is present for Follow Up PSA/PVR Urology Med: Finasteride, Antibiotic Allergy: None Blood Thinner: Aspirin [facility]: [facility] PVR: 0ML Allergies atorvastatin [Lipitor] Adverse Reaction (Unknown, Verified 04/11/23 08:54) back pain HPI HPI Comments History of Present Illness Details Edmond is a pleasant male. He is a patient Dr. Strong. He is seen for the following urologic conditions - elevated PSA - lower urinary tract symptoms Maintained urinary performance PVR 0 cc PSA has fallen to 3.3 HbA1c fallen from 8.0 to 7.3 Prostate biopsy shows BPH with inflammation Remain on finasteride Lower Urinary Tract Symptoms: 160gm at biopsy Current visit is for further evaluation of, lower urinary tract symptoms, predominate obstructive symptoms. Current treatment includes finasteride. Prostate Symptom Score 10/ , Moderate (9-19), Bother 3. Symptoms include 10/ , urgency, nocturia (>2), and are progressing. Prior Prostate Score unknown. PSA 06/12 10 09/13 5.2 on finasteride, 02/11 9.6, 07/14 5.3, 02/12 5.6, 07/15 3.6 F 36%, 02/13 4.5, 10/17 4.5 F 27%, 04/16 3.3 Prostate volume 50+gm - very large on exam - Prostate Biopsy 04/15 NAD, Volume 160gm Associated conditions CAD No CVA No diabetes Yes elevated PSA Yes erectile dysfunction Yes Testing at next visit will include bladder scan. Treatment plan Continue finasteride [facility] Medical History Ascending aorta enlargement CLL (chronic lymphocytic leukemia) Colonoscopy refused Cough DM type 2 (diabetes mellitus, type 2) (Unknown) HTN (hypertension) (Unknown) Hyperlipemia Hypertension Surgical History History of cholecystectomy (Unknown) History of repair of right rotator cuff (Unknown) Family History Father No problems noted. Mother Diabetes Social History Housing: House Alcohol intake: never Patient Tobacco Use Status: Former Tobacco user e-Cigarette/Vaping Use: Never Used service: No Current occupational status: retired Cognitive needs: No Hearing needs: Yes Vision needs: Yes Review of Systems Const Denies chills and Denies fever(s) Card Reports no additional complaints and Denies syncope Resp Denies cough GI Denies abdominal pain and Denies heartburn Reports as per HPI and Denies change in libido Neuro Denies syncope Psych Denies change in libido Endo Denies change in libido Physical Exam Const General: cooperative, healthy appearing, comfortable and no acute distress Orientation/consciousness: patient oriented x3 HEENT Face and sinus: Yes normal facial exam Mouth: moist mucous membranes Neck Neck: Yes normal visual inspection, Yes full ROM and Yes trachea midline Chest Chest palpation & inspection: normal inspection of the chest Resp Effort & Inspection: normal respiratory effort, able to speak in complete sentences and no respiratory distress GI Inspection: Yes normal to inspection Back/Spine/Pelvis Cervical Spine: normal cervical lordosis Thoracic/Lumbar Spine: thoracic and lumbar spine normal to inspection Skin General skin exam: no rashes or lesions noted Neuro General: patient oriented x3, gait normal, tone normal and moves all extremities Extrem General: Yes normal to inspection and Yes capillary refill normal Office Procedures Post Void Residual Post Residual Void Post Void Residual (PVR): 0 [id number] Void Residual by ultrasound Results AMB Urinalysis, Automated UA Leukoctes 0 Deangelo/uL Last Edit by RICARDO Sibley on 04/11/23 08:59 UA Nitrite Negative Last Edit by RICARDO Sibley on 04/11/23 08:59 UA Urobilinogen 0.2 mg/dL Last Edit by RICARDO Sibley on 04/11/23 08:59 UA Protein 0 mg/dL Last Edit by RICARDO Sibley on 04/11/23 08:59 UA pH 6.0 Last Edit by RICARDO Sibley on 04/11/23 08:59 UA Blood 0 Jerry/uL Last Edit by RICARDO Sibley on 04/11/23 08:59 UA Specific Duarte 1.025 Last Edit by RICARDO Sibley on 04/11/23 08:59 UA Ketone Negative Last Edit by RICARDO Sibley on 04/11/23 08:59 UA Bilirubin 0 mg/dL Last Edit by RICARDO Sibley on 04/11/23 08:59 UA Glucose 0 mg/dL Last Edit by RICARDO Sibley on 04/11/23 08:59 Results Reviewed Results Reviewed: Laboratory Last Values Urine pH (Auto) 6.0 04/11/23 08:54 Specific Duarte (Auto) 1.025 04/11/23 08:54 Urine Protein (Auto) 0 mg/dL 04/11/23 08:54 Glucose (UA)(Auto) 0 mg/dL 04/11/23 08:54 Urine Ketones (Auto) Negative 04/11/23 08:54 Urine Blood (Auto) 0 Jerry/uL 04/11/23 08:54 Urine Nitrite (Auto) Negative 04/11/23 08:54 Urine Bilirubin (Auto) 0 mg/dL 04/11/23 08:54 Urine Urobilinogen (Auto) 0.2 mg/dL 04/11/23 08:54 Leukocyte Esterase (Auto) 0 Deangelo/uL 04/11/23 08:54 Assessment & Plan Assessment & Plan (1) Elevated PSA: Comment: 04/15 160gm Biopsy Negative Code(s): R97.20 - Elevated prostate specific antigen [PSA] (2) BPH w urinary obs/LUTS: Code(s): N40.1 - Benign prostatic hyperplasia with lower urinary tract symptoms; N13.8 - Other obstructive and reflux uropathy Plan 6 month follow-up PSA tele visit Orders: Orders AMB Urinalysis Automated Today Z13.9 - Encounter for screening, unspecified AMB Post Void Residual by ultrasound Today N13.8 - Other obstructive and reflux uropathy, N40.1 - Benign prostatic hyperplasia with lower urinary tract symptoms Patient Instructions: Imaging studies, laboratory and physical exam results were discussed and reviewed in detail. No major barriers to patient understanding were identified. An opportunity to ask questions regarding the treatment plan was provided. All questions were answered. The patient expressed understanding and agreement with the above treatment plan. The patient is aware they should contact our office by phone for worsening of their current condition or the appearance of new urologic symptoms. Compliance is encouraged with any medications and followup testing that is ordered. It is a privilege to participate in the urologic care of your patient. If you have any questions or concerns regarding treatment for the above conditions, or other urologic issues, please do not hesitate to contact me. The office telephone contact is [phone]. This note is constructed using voice recognition software. While every effort has been made to ensure accuracy rental car deliverer errors may have been included. Yours sincerely, Dr Haim Schmitt MD, [facility] - Urology Providers of Expert, Compassionate Care for the Genitourinary System Coding Level of Care Code Est Pt Level 3 (38581) Diagnoses Elevated PSA R97.20 BPH w urinary obs/LUTS N40.1; N13.8 CPT Codes Post Residual Void - PVR CPT Code: 96682-[id number] Void Residual by ultrasound ([id number])
== END 2023-04-11 09:14 | disposition home or self-care (01) ==
PROVIDERS: PCP Internal Medicine; Visit Provider Urology
DX: R97.20 Elevated prostate specific antigen [PSA] (principal); N40.1 Benign prostatic hyperplasia with lower urinary tract symptoms; N13.8 Other obstructive and reflux uropathy; Z13.9 Encounter for screening, unspecified
CPT/HCPCS: 99213

== ENCOUNTER → 2023-04-11 08:38 | Outpatient (BNVA) | payer MEDICARE, SELFPAY | PROVIDERS: Visit Provider Urology | DX: N40.1 Benign prostatic hyperplasia with lower urinary tract symptoms (principal); N13.8 Other obstructive and reflux uropathy; R97.20 Elevated prostate specific antigen [PSA] | CPT/HCPCS: 51798; 81003; 99212 ==

== ENCOUNTER 2023-04-23 08:20 | Outpatient (REF) | payer MEDICARE, SELFPAY ==
[2023-04-23 11:53] LABS: Basophils Percent Auto 0.2 % (0-2); Eosinophils Absolute Auto 0.1 X10*3/uL (0.0-0.4); Eosinophils Percent Auto 0.6 % (0-4); Hematocrit 40.4 % (42.0-52.0); Hemoglobin 12.2 g/dl (14.0-18.0); Imm Gran Abs Auto 0.03 X10*3/uL (0.00-0.03); Imm Gran Pct Auto 0.2 % (0.0-0.4); Lymphocytes Absolute Auto 13.2 X10*3/uL (1.2-4.9); Lymphocytes Percent Auto 80.6 % (20-40); MANUAL DIFF FLAG SCAN; Mean Corpuscular HGB Conc 30.2 g/dl (31.0-36.0); Mean Corpuscular Hemoglobin 26.5 pg (27.0-33.0); Mean Corpuscular Volume 87.6 fL (80.0-98.0); Mean Platelet Volume 11.2 fL (9.4-12.4); Monocytes Absolute Auto 0.4 X10*3/uL (0.1-1.2); Monocytes Percent Auto 2.3 % (2-11); Neutrophils Absolute Auto 2.6 x10*3/uL (2.0-8.3); Neutrophils Percent Auto 16.1 % (45-73); Platelet Count 152 X10*3/uL (160-400); Red Blood Count 4.61 X10*6/uL (4.60-5.80); Red Cell Distribution Width 13.5 % (11.0-16.0); SCAN SMEAR FLAG 1; White Blood Count 16.3 X10*3/uL (4.8-10.8)
[2023-04-23 11:58] LABS: Estimated Average Glucose 183 mg/dL
[2023-04-23 12:12] LABS: Alanine Aminotransferase 80 U/L (0-40); Albumin Level 4.3 g/dL (3.5-5.0); Alkaline Phosphatase 49 U/L (39-117); Anion Gap 13 (12-20); Aspartate Amino Transferase 36 U/L (5-37); Bilirubin Total 0.8 mg/dL (0.0-1.0); Blood Urea Nitrogen 16 mg/dL (9-16); Calcium 9.3 mg/dL (8.4-10.2); Carbon Dioxide 27 mmol/L (22-29); Chloride 105 mmol/L (96-108); Cholesterol 91 mg/dL (<200); Estimated Glomerular Filt Rate > 60; Glucose Fasting 151 mg/dL (60-99); HDL Cholesterol 39 mg/dL (>40); LDL Cholesterol Calculated 35 mg/dL (<100); Potassium 4.6 mmol/L (3.3-5.1); Sodium 140 mmol/L (135-145); Total Protein 6.7 g/dL (6.5-8.0); Triglycerides 89 mg/dL (<150)
[2023-04-23 12:20] LABS: SLIDE REVIEW VERIFIED
[2023-04-23 12:30] LABS: Creatinine Urine 149.61 mg/dL; Microalbum/Creatinine Ratio Ur 30.7 ug/mg cr (<30)
== END 2023-04-23 08:21 | disposition home or self-care (01) ==
LOC: HO.HMGCLDS 08:20
PROVIDERS: PCP Internal Medicine; Visit Provider Internal Medicine
DX: E78.5 Hyperlipidemia, unspecified (principal); I10 Essential (primary) hypertension; E11.9 Type 2 diabetes mellitus without complications
CPT/HCPCS: 36415; 80053; 80061; 82043; 83036; 85025

== ENCOUNTER 2023-05-01 09:12 | Outpatient (AMB) | payer MEDICARE, SELFPAY ==
[2023-05-01 09:15] VITALS: BP 104/56; PULSE 68; O2SAT 95; BMI 27.5
--- NOTE | 2023-05-01 09:15 | A.OFFPC_ITS ---
Vital Signs 05/01/23 09:15 Height 6 ft 3 in Weight 220 lb BMI 27.5 BP 104/56 L Blood Pressure Location Rt brachial Position Sitting Pulse 68 Pulse Source Pulse Oximeter Pulse Oximetry (%) 95 Oxygen Delivery Method Room Air Intake Visit Reasons: 2 months follow up on DM. Intake Note: Pt is here today for 2 months follow up visit on DM. Allergies atorvastatin [Lipitor] Adverse Reaction (Unknown, Verified 05/01/23 09:17) back pain Medication List - Last Reconciled 05/01/23 by Chata Curiel MD amlodipine 10 mg PO DAILY aspirin 81 mg PO DAILY blood sugar diagnostic ([employer] Verio test strips) As directed to test blood sugar twice a day ezetimibe (Zetia) 10 mg PO DAILY finasteride 5 mg PO DAILY 90 days glipizide 20 mg (2 x 10 mg) PO BID lisinopril 20 mg PO DAILY metformin 1,000 mg PO BID metoprolol succinate ER 100 mg PO DAILY pen needle, diabetic (BD Ultra-Fine Mini Pen Needle) 1 QD rosuvastatin (Crestor) 20 mg PO DAILY Tobacco use date assessed: 05/01/23 Fall risk assessment: No Falls in past year Last assessed Fall Risk: 05/01/23 HPI 2 months follow up on DM. HPI Details Patient presents for the follow-up of type 2 diabetes hypertension hyperlipidemia. [facility] Medical History (Updated 05/01/23 @ 10:01 by Chata Curiel MD) Cough Colonoscopy refused Ascending aorta enlargement Hypertension CLL (chronic lymphocytic leukemia) Hyperlipemia DM type 2 (diabetes mellitus, type 2) (Unknown) HTN (hypertension) (Unknown) Surgical History History of repair of right rotator cuff (Unknown) History of cholecystectomy (Unknown) Family History Father No problems noted. Mother Diabetes Social History Housing: House Alcohol intake: never Patient Tobacco Use Status: Former Tobacco user e-Cigarette/Vaping Use: Never Used service: No Current occupational status: retired Cognitive needs: No Hearing needs: Yes Vision needs: Yes Questionnaire Thrive Questionnaire Date Thrive assessed: 10/14/22 ROSE-7 AMB Questionnaire ROSE-7 Date ROSE - 7 assessed: 10/14/22 Source: Developed by DrsEstuardo Gandara, Jolie Muir, Hamzah Gonzalez and colleagues, with an educational moisés from [employer]. Review of Systems Const All systems reviewed & are unremarkable except as noted in HPI and below Reports no additional complaints Eyes Reports no additional complaints ENT Reports no additional complaints Card Reports no additional complaints Resp Reports no additional complaints GI Reports no additional complaints Reports no additional complaints Physical exam (Primary Care) Vital Signs: Last Vital Signs Pulse 68 05/01/23 09:15 BP 104/56 L 05/01/23 09:15 Pulse Ox 95 05/01/23 09:15 Oxygen Delivery Method Room Air 05/01/23 09:15 BMI result Body Mass Index 27.5 Tobacco/Smoking Status: Tobacco use Status Tobacco use date assessed 05/01/23 05/01/23 09:25 Patient Tobacco Use Status Former Tobacco user 05/01/23 09:17 e-Cigarette/Vaping Use Never Used 05/01/23 09:17 Thrive Assessment: Date of Thrive Assessment Date Thrive assessed 10/14/22 05/01/23 09:17 Const General: no acute distress HENMT Head: Yes normal to inspection Ears: hearing grossly normal bilaterally Mouth: Normal oral and palatal mucosa present Neck Neck: Yes supple Resp Effort & Inspection: normal respiratory effort Auscultation: clear to auscultation bilaterally Cardio Rhythm: regular rhythm Heart sounds: S1 normal heart sound present and S2 normal heart sound present GI Inspection: Yes normal to inspection Palpation (GI): Soft to palpation Percussion: Yes normal to percussion Auscultation: normal bowel sounds Assessment and Plan Assessment & Plan (1) Hyperlipemia: Comment: INTOLERANT to statins : simvastatin, atorvastatin,pravastatin side effect- lower back pain Code(s): E78.5 - Hyperlipidemia, unspecified Plan: Continue Crestor and Zetia (2) HTN (hypertension): Onset Date: Unknown Code(s): I10 - Essential (primary) hypertension Plan: Continue current medications (3) DM type 2 (diabetes mellitus, type 2): Onset Date: Unknown Comment: cont meds and ADA diet, Code(s): E11.9 - Type 2 diabetes mellitus without complications Plan: A1c is up to 8.0, ADA diet increase physical activity discussed with the patient. He cannot afford Ozempic or Farxiga because of high co-pay.. Follow-up in 3 months with a fasting labs before (4) CLL (chronic lymphocytic leukemia): Comment: f/u with hematology Dr. Asencio Code(s): C91.10 - Chronic lymphocytic leukemia of B-cell type not having achieved remission Plan: Follow-up with Hematology Orders: Orders Comprehensive Vance. Panel Fast 3 Months C91.10 - Chronic lymphocytic leukemia of B-cell type not having achieved remission, E11.9 - Type 2 diabetes mellitus without complications, E78.5 - Hyperlipidemia, unspecified, I10 - Essential (primary) hypertension Hemoglobin A1c 3 Months C91.10 - Chronic lymphocytic leukemia of B-cell type not having achieved remission, E11.9 - Type 2 diabetes mellitus without complications, E78.5 - Hyperlipidemia, unspecified, I10 - Essential (primary) hypertension Lipid Panel 3 Months C91.10 - Chronic lymphocytic leukemia of B-cell type not having achieved remission, E11.9 - Type 2 diabetes mellitus without complications, E78.5 - Hyperlipidemia, unspecified, I10 - Essential (primary) hypertension Microalbumin, Random (w Creat) 3 Months C91.10 - Chronic lymphocytic leukemia of B-cell type not having achieved remission, E11.9 - Type 2 diabetes mellitus without complications, E78.5 - Hyperlipidemia, unspecified, I10 - Essential (primary) hypertension Coding Level of Care Code Est Pt Level 4 (26089) Diagnoses Hyperlipemia E78.5 HTN (hypertension) I10 DM type 2 (diabetes mellitus, type 2) E11.9 CLL (chronic lymphocytic leukemia) C91.10
== END 2023-05-01 10:01 | disposition home or self-care (01) ==
PROVIDERS: PCP Internal Medicine; Visit Provider Internal Medicine
DX: E78.5 Hyperlipidemia, unspecified (principal); I10 Essential (primary) hypertension; E11.9 Type 2 diabetes mellitus without complications; C91.10 Chronic lymphocytic leukemia of B-cell type not having achieved remission
CPT/HCPCS: 99214

== ENCOUNTER 2023-07-28 09:01 | Outpatient (REF) | payer MEDICARE, SELFPAY ==
[2023-07-28 11:54] LABS: Alanine Aminotransferase 50 U/L (0-40); Albumin Level 4.2 g/dL (3.5-5.0); Alkaline Phosphatase 42 U/L (39-117); Anion Gap 10 (12-20); Aspartate Amino Transferase 29 U/L (5-37); Bilirubin Total 0.5 mg/dL (0.0-1.0); Blood Urea Nitrogen 14 mg/dL (9-16); Calcium 9.1 mg/dL (8.4-10.2); Carbon Dioxide 27 mmol/L (22-29); Chloride 109 mmol/L (96-108); Cholesterol 93 mg/dL (<200); Estimated Glomerular Filt Rate > 60; Glucose Fasting 127 mg/dL (60-99); HDL Cholesterol 39 mg/dL (>40); LDL Cholesterol Calculated 36 mg/dL (<100); Potassium 4.2 mmol/L (3.3-5.1); Sodium 142 mmol/L (135-145); Total Protein 6.5 g/dL (6.5-8.0); Triglycerides 90 mg/dL (<150)
[2023-07-28 12:06] LABS: Estimated Average Glucose 177 mg/dL; Hemoglobin A1c % 7.8 % (<6.0)
[2023-07-28 12:18] LABS: Creatinine Urine 153.33 mg/dL; Microalbum/Creatinine Ratio Ur 16.9 ug/mg cr (<30)
== END 2023-07-28 09:02 | disposition home or self-care (01) ==
LOC: HO.HMGCLDS 09:01
PROVIDERS: PCP Internal Medicine; Visit Provider Internal Medicine
DX: C91.10 Chronic lymphocytic leukemia of B-cell type not having achieved remission (principal); E78.5 Hyperlipidemia, unspecified; I10 Essential (primary) hypertension; E11.9 Type 2 diabetes mellitus without complications
CPT/HCPCS: 36415; 80053; 80061; 82043; 82570; 83036

== ENCOUNTER 2023-08-04 09:17 | Outpatient (AMB) | payer MEDICARE, SELFPAY ==
--- NOTE | 2023-08-04 09:24 | MHC.PC.OV ---
Vital Signs 08/04/23 09:25 Height 6 ft 3 in Weight 218 lb BMI 27.2 BP 118/64 Blood Pressure Location Lt brachial Position Sitting Pulse 64 Pulse Source Pulse Oximeter Pulse Oximetry (%) 97 Oxygen Delivery Method Room Air Intake Visit Reasons: PE Intake Note: Pt is here today for PE. Pt states that he needs a refill on his lancets and test strips. Allergies atorvastatin [Lipitor] Adverse Reaction (Unknown, Verified 08/04/23 09:29) back pain Medication List - Last Reconciled 08/04/23 by Chata Curiel MD amlodipine 10 mg PO DAILY aspirin 81 mg PO DAILY blood sugar diagnostic ([employer] Verio test strips) As directed to test blood sugar twice a day ezetimibe (Zetia) 10 mg PO DAILY Farxiga (dapagliflozin propanediol) 5 mg PO DAILY NS finasteride 5 mg PO DAILY 90 days glipizide 20 mg (2 x 10 mg) PO BID lisinopril 20 mg PO DAILY metformin 1,000 mg PO BID metoprolol succinate ER 100 mg PO DAILY [one touch delica lancets check glucose once a day] pen needle, diabetic (BD Ultra-Fine Mini Pen Needle) 1 QD rosuvastatin (Crestor) 20 mg PO DAILY Tobacco use date assessed: 08/04/23 Fall risk assessment: No Falls in past year Last assessed Fall Risk: 08/04/23 Dental Screening Dental Screen Date: 08/04/23 Did you have a dental visit in the last 12 months?: Yes Did you have a dental problem in the last 6 months where you did not have access to dental care?: No Was dental information given to patient?: Patient has dentist HPI PE HPI Details Pt presents for PE. He reports occasionally low glucose down to 60s after walking in the morning. Patient usually has oatmeal for breakfast. [facility] Medical History (Updated 08/04/23 @ 11:50 by Chata Curiel MD) Cough Colonoscopy refused Ascending aorta enlargement Hypertension CLL (chronic lymphocytic leukemia) Hyperlipemia DM type 2 (diabetes mellitus, type 2) (Unknown) HTN (hypertension) (Unknown) Surgical History History of repair of right rotator cuff (Unknown) History of cholecystectomy (Unknown) Family History Father No problems noted. Mother Diabetes Social History Housing: House Alcohol intake: never Patient Tobacco Use Status: Former Tobacco user e-Cigarette/Vaping Use: Never Used service: No Current occupational status: retired Cognitive needs: No Hearing needs: Yes Vision needs: Yes Questionnaire Thrive Questionnaire Date Thrive assessed: 10/14/22 AUDIT C Alcohol Use Questionnaire (AUDIT-C) 1. How often do you have a drink containing alcohol?: Monthly or less 2. How many drinks containing alcohol do you have on a typical day when you are drinking?: 1 or 2 3. How often do you have six or more drinks on one occasion?: Never Total Score: 1 ROSE-7 AMB Questionnaire ROSE-7 Date ROSE - 7 assessed: 10/14/22 Source: Developed by Drs. Samson Gandara, Jolie Muir, Hamzah Gonzalez and colleagues, with an educational moisés from [employer]. Review of Systems Const All systems reviewed & are unremarkable except as noted in HPI and below Reports no additional complaints Eyes Reports no additional complaints ENT Reports no additional complaints Card Reports no additional complaints Resp Reports no additional complaints GI Reports no additional complaints Reports no additional complaints Physical exam (Primary Care) Vital Signs: Last Vital Signs Pulse 64 08/04/23 09:25 BP 118/64 08/04/23 09:25 Pulse Ox 97 08/04/23 09:25 Oxygen Delivery Method Room Air 08/04/23 09:25 BMI result Body Mass Index 27.2 Tobacco/Smoking Status: Tobacco use Status Tobacco use date assessed 08/04/23 08/04/23 09:32 Patient Tobacco Use Status Former Tobacco user 08/04/23 09:32 e-Cigarette/Vaping Use Never Used 08/04/23 09:32 Thrive Assessment: Date of Thrive Assessment Date Thrive assessed 10/14/22 08/04/23 09:32 Const General: no acute distress HENMT Head: Yes normal to inspection Ears: hearing grossly normal bilaterally Face and sinus: Yes normal facial exam Mouth: Normal oral and palatal mucosa present Throat: Yes posterior oropharynx normal Eyes General: appearance normal, both eyes and all related structures Neck Neck: Yes no lymphadenopathy and Yes supple Resp Effort & Inspection: normal respiratory effort Auscultation: clear to auscultation bilaterally Cardio Rhythm: regular rhythm Heart sounds: S1 normal heart sound present and S2 normal heart sound present GI Inspection: Yes normal to inspection Palpation (GI): Soft to palpation Percussion: Yes normal to percussion Auscultation: normal bowel sounds Assessment and Plan Assessment & Plan (1) HTN (hypertension): Onset Date: Unknown Code(s): I10 - Essential (primary) hypertension Plan: Continue current medications (2) DM type 2 (diabetes mellitus, type 2): Onset Date: Unknown Comment: cont meds and ADA diet, insurance does not cover SGTP 2 inhibitor Code(s): E11.9 - Type 2 diabetes mellitus without complications Plan: A1c is down to 7.8, ADA diet regular physical activity discussed. he was advised to decrease glipizide to 10 mg in the morning and continue 20 mg at bedtime. Follow-up in from months with fasting labs before (3) CLL (chronic lymphocytic leukemia): Comment: f/u with hematology Dr. Asencio Code(s): C91.10 - Chronic lymphocytic leukemia of B-cell type not having achieved remission Plan: Follow-up with Hematology (4) Annual physical exam: Code(s): Z00.00 - Encounter for general adult medical examination without abnormal findings Plan: Well-balanced diet regular exercise discussed with the patient. he refused colonoscopy Orders: Orders Hemoglobin A1c 4 Months E11.9 - Type 2 diabetes mellitus without complications, I10 - Essential (primary) hypertension Lipid Panel 4 Months E11.9 - Type 2 diabetes mellitus without complications, I10 - Essential (primary) hypertension Comprehensive Met. Panel 4 Months E11.9 - Type 2 diabetes mellitus without complications, I10 - Essential (primary) hypertension Microalbumin, Random (w Creat) 4 Months E11.9 - Type 2 diabetes mellitus without complications, I10 - Essential (primary) hypertension Medications: Discontinued ezetimibe (Zetia) Discontinued Reason: Doctor's Order 10 mg PO DAILY 90 tabs 3RF Farxiga (dapagliflozin propanediol) Discontinued Reason: Doctor's Order 5 mg PO DAILY 90 tabs 0RF NS Coding Level of Care Code Est Pt Prev Care >65y(42356) Diagnoses HTN (hypertension) I10 DM type 2 (diabetes mellitus, type 2) E11.9 CLL (chronic lymphocytic leukemia) C91.10 Annual physical exam Z00.00
[2023-08-04 09:25] VITALS: BP 118/64; PULSE 64; O2SAT 97; BMI 27.2
== END 2023-08-04 11:24 | disposition home or self-care (01) ==
PROVIDERS: PCP Internal Medicine; Visit Provider Internal Medicine
DX: Z00.00 Encounter for general adult medical examination without abnormal findings (principal); I10 Essential (primary) hypertension; E11.9 Type 2 diabetes mellitus without complications; C91.10 Chronic lymphocytic leukemia of B-cell type not having achieved remission
CPT/HCPCS: 99397

== ENCOUNTER 2023-10-01 10:43 | Outpatient (REF) | payer MEDICARE, SELFPAY | END 2023-10-01 10:44 | disposition home or self-care (01) | LOC: HO.LAB 10:43 | PROVIDERS: Visit Provider Urology | DX: Z13.89 Encounter for screening for other disorder (principal) ==

== ENCOUNTER 2023-10-09 08:20 | Outpatient (REF) | payer MEDICARE, SELFPAY ==
[2023-10-09 11:47] LABS: Estimated Average Glucose 171 mg/dL; Hemoglobin A1c % 7.6 % (<6.0)
[2023-10-09 11:48] LABS: Alanine Aminotransferase 36 U/L (0-40); Albumin Level 4.2 g/dL (3.5-5.0); Alkaline Phosphatase 47 U/L (39-117); Anion Gap 11 (12-20); Aspartate Amino Transferase 22 U/L (5-37); Bilirubin Total 0.6 mg/dL (0.0-1.0); Blood Urea Nitrogen 15 mg/dL (9-16); Calcium 9.4 mg/dL (8.4-10.2); Carbon Dioxide 26 mmol/L (22-29); Chloride 107 mmol/L (96-108); Cholesterol 123 mg/dL (<200); Estimated Glomerular Filt Rate > 60; Glucose Random 178 mg/dL (60-115); HDL Cholesterol 41 mg/dL (>40); LDL Cholesterol Calculated 60 mg/dL (<100); Potassium 4.2 mmol/L (3.3-5.1); Sodium 140 mmol/L (135-145); Total Protein 6.5 g/dL (6.5-8.0); Triglycerides 110 mg/dL (<150)
[2023-10-09 12:06] LABS: Prostate Specific Antigen 4.93 ng/mL (<0.05-4.0)
[2023-10-09 12:18] LABS: Creatinine Urine 184.57 mg/dL; Microalbum/Creatinine Ratio Ur 21.6 ug/mg cr (<30)
== END 2023-10-09 08:21 | disposition home or self-care (01) ==
LOC: HO.HMGCLDS 08:20
PROVIDERS: PCP Internal Medicine; Visit Provider Urology
DX: R97.20 Elevated prostate specific antigen [PSA] (principal); I10 Essential (primary) hypertension; E11.9 Type 2 diabetes mellitus without complications; Z12.5 Encounter for screening for malignant neoplasm of prostate
CPT/HCPCS: 36415; 80053; 80061; 82043; 82570; 83036; 84153

== ENCOUNTER 2023-10-17 13:04 | Outpatient (AMB) | payer MEDICARE, SELFPAY ==
--- NOTE | 2023-10-17 13:03 | A.OFFVIS_ITS ---
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 Accompanied by: Self / Same As Patient Allergies atorvastatin [Lipitor] Adverse Reaction (Unknown, Verified 10/17/23 13:07) back pain Medication List - Last Reconciled 10/17/23 by Haim Schmitt MD amlodipine 10 mg PO DAILY aspirin 81 mg PO DAILY blood sugar diagnostic ([employer] Verio test strips) As directed to test blood sugar twice a day finasteride 5 mg PO DAILY 90 days glipizide 20 mg (2 x 10 mg) PO BID lancets ([employer] Delica Plus Lancet) Test blood sugar twice per day lisinopril 20 mg PO DAILY metformin 1,000 mg PO BID metoprolol succinate ER 100 mg PO DAILY pen needle, diabetic (BD Ultra-Fine Mini Pen Needle) 1 QD rosuvastatin (Crestor) 20 mg PO DAILY HPI HPI Comments History of Present Illness Details Edmond is a pleasant male. He is a patient Dr. Strong. He is seen for the following urologic conditions - elevated PSA - lower urinary tract symptoms Telemedicine Evaluation 15 min Consultation Doximity Ramiro Video attempted PSA 4.9 HbA1c fallen from 8.0 to 7.3 Prior Prostate biopsy shows BPH with inflammation Remain on finasteride Lower Urinary Tract Symptoms: 160gm at biopsy Current visit is for further evaluation of, lower urinary tract symptoms, predominate obstructive symptoms. Current treatment includes finasteride. Prostate Symptom Score 06/12 , Moderate (9-19), Bother 3. Symptoms include 06/12 , urgency, nocturia (>2), and are progressing. Prior Prostate Score unknown. PSA 06/12 10 09/13 5.2 on finasteride, 02/11 9.6, 07/14 5.3, 02/12 5.6, 07/15 3.6 F 36%, 02/13 4.5, 10/17 4.5 F 27%, 04/16 3.3, 10/18 4.9 Prostate volume 50+gm - very large on exam - Prostate Biopsy 04/15 NAD, Volume 160gm Associated conditions CAD No CVA No diabetes Yes elevated PSA Yes erectile dysfunction Yes Testing at next visit will include bladder scan. Treatment plan Continue finasteride PFSH Medical History Cough Colonoscopy refused Ascending aorta enlargement Hypertension CLL (chronic lymphocytic leukemia) Hyperlipemia DM type 2 (diabetes mellitus, type 2) (Unknown) HTN (hypertension) (Unknown) Surgical History History of repair of right rotator cuff (Unknown) History of cholecystectomy (Unknown) Family History Father No problems noted. Mother Diabetes Social History Housing: House Alcohol intake: never Patient Tobacco Use Status: Former Tobacco user e-Cigarette/Vaping Use: Never Used service: No Current occupational status: retired Cognitive needs: No Hearing needs: Yes Vision needs: Yes Review of Systems Const All systems reviewed & are unremarkable except as noted in HPI and below Reports no additional complaints Resp Reports no additional complaints GI Reports no additional complaints Reports as per HPI Musc Reports no additional complaints Physical Exam Telemedicine evaluation Appropriate responses Regular breathing rate and rhythm HEENT Head: Yes normal to inspection Ears: hearing grossly normal bilaterally Eyes General: appearance normal, both eyes and all related structures Neck Neck: Yes normal visual inspection Chest Chest palpation & inspection: normal inspection of the chest Resp Effort & Inspection: normal respiratory effort and able to speak in complete sentences Assessment & Plan Assessment & Plan (1) Elevated PSA: Comment: 04/15 160gm Biopsy Negative Code(s): R97.20 - Elevated prostate specific antigen [PSA] (2) BPH w urinary obs/LUTS: Code(s): N40.1 - Benign prostatic hyperplasia with lower urinary tract symptoms; N13.8 - Other obstructive and reflux uropathy Plan Six-month follow-up PSA Orders: Orders PSA,Total (Free>4and<10) 6 Months R97.20 - Elevated prostate specific antigen [PSA] Prostate Specific Antigen 10/09/23 R97.20 - Elevated prostate specific antigen [PSA] Medications: Refilled finasteride 5 mg PO DAILY 90 tabs 3RF 90 days R97.20 - Elevated prostate specific antigen [PSA] Patient Instructions: Imaging studies, laboratory and physical exam results were discussed and reviewed in detail. No major barriers to patient understanding were identified. An opportunity to ask questions regarding the treatment plan was provided. All questions were answered. The patient expressed understanding and agreement with the above treatment plan. The patient is aware they should contact our office by phone for worsening of their current condition or the appearance of new urologic symptoms. Compliance is encouraged with any medications and followup testing that is ordered. It is a privilege to participate in the urologic care of your patient. If you have any questions or concerns regarding treatment for the above conditions, or other urologic issues, please do not hesitate to contact me. The office telephone contact is [phone]. This note is constructed using voice recognition software. While every effort has been made to ensure accuracy logistics research engineer errors may have been included. Yours sincerely, Dr Haim Schmitt MD, [facility] - Urology Providers of Expert, Compassionate Care for the Genitourinary System Telehealth Telehealth Location of provider rendering services: practice address Location of patient: address on file Patient Identification confirmed using: Name, : Yes Telehealth method: video Patient verbally consented to treatment: Yes Patient verbally consented to billing insurance company: Yes Patient informed of any privacy concerns related to visit: Yes Coding Level of Care Code Tele Est Pt Level 3 (69327) Diagnoses Elevated PSA R97.20 BPH w urinary obs/LUTS N40.1; N13.8
== END 2023-10-17 14:58 | disposition home or self-care (01) ==
LOC: HO.HUSH 13:04
PROVIDERS: PCP Internal Medicine; Visit Provider Urology
DX: R97.20 Elevated prostate specific antigen [PSA] (principal); N40.1 Benign prostatic hyperplasia with lower urinary tract symptoms; N13.8 Other obstructive and reflux uropathy
CPT/HCPCS: 99213

== ENCOUNTER → 2023-10-17 13:04 | Outpatient (BNVA) | payer MEDICARE, SELFPAY | PROVIDERS: PCP Internal Medicine; Visit Provider Urology ==

== ENCOUNTER 2023-11-28 09:03 | Outpatient (REF) | payer MEDICARE, SELFPAY ==
[2023-11-28 10:56] LABS: Estimated Average Glucose 186 mg/dL; Hemoglobin A1c % 8.1 % (<6.0)
[2023-11-28 11:05] LABS: Alanine Aminotransferase 29 U/L (0-40); Albumin Level 4.1 g/dL (3.5-5.0); Alkaline Phosphatase 46 U/L (39-117); Anion Gap 12 (12-20); Aspartate Amino Transferase 16 U/L (5-37); Bilirubin Total 0.4 mg/dL (0.0-1.0); Blood Urea Nitrogen 17 mg/dL (9-16); Calcium 9.3 mg/dL (8.4-10.2); Carbon Dioxide 26 mmol/L (22-29); Chloride 108 mmol/L (96-108); Estimated Glomerular Filt Rate > 60; Glucose Fasting 187 mg/dL (60-99); Potassium 4.5 mmol/L (3.3-5.1); Sodium 141 mmol/L (135-145); Total Protein 6.6 g/dL (6.5-8.0)
== END 2023-11-28 09:04 | disposition home or self-care (01) ==
LOC: HO.HMGCLDS 09:03
PROVIDERS: PCP Internal Medicine; Visit Provider Internal Medicine
DX: E11.9 Type 2 diabetes mellitus without complications (principal); I10 Essential (primary) hypertension
CPT/HCPCS: 36415; 80053; 83036

== ENCOUNTER 2023-12-04 09:54 | Outpatient (AMB) | payer MEDICARE, SELFPAY ==
[2023-12-04 10:03] VITALS: BP 120/74; PULSE 54; O2SAT 97; BMI 27.5
--- NOTE | 2023-12-04 10:03 | MHC.PC.OV ---
Vital Signs 12/04/23 10:03 Height 6 ft 3 in Weight 220 lb BMI 27.5 BP 120/74 Blood Pressure Location Lt brachial Position Sitting Pulse 54 Pulse Source Pulse Oximeter Pulse Oximetry (%) 97 Oxygen Delivery Method Room Air Intake Visit Reasons: 4 month follow up Intake Note: Pt is here today for 4 months follow up visit on labs. Allergies atorvastatin [Lipitor] Adverse Reaction (Unknown, Verified 12/04/23 10:07) back pain Tobacco use date assessed: 12/04/23 Fall risk assessment: No Falls in past year Last assessed Fall Risk: 12/04/23 Dental Screening Dental Screen Date: 12/04/23 Did you have a dental visit in the last 12 months?: Yes Did you have a dental problem in the last 6 months where you did not have access to dental care?: No Was dental information given to patient?: Patient has dentist HPI 4 month follow up HPI Details Pt presents for DM 2, HTN, hyperlipid. [facility] Medical History Cough Colonoscopy refused Ascending aorta enlargement Hypertension CLL (chronic lymphocytic leukemia) Hyperlipemia DM type 2 (diabetes mellitus, type 2) (Unknown) HTN (hypertension) (Unknown) Surgical History History of repair of right rotator cuff (Unknown) History of cholecystectomy (Unknown) Family History Father No problems noted. Mother Diabetes Social History Housing: House Alcohol intake: never Patient Tobacco Use Status: Former Tobacco user e-Cigarette/Vaping Use: Never Used service: No Current occupational status: retired Cognitive needs: No Hearing needs: Yes Vision needs: Yes Questionnaire PHQ-9 Over the last 2 weeks, how often have you been bothered by any of the following problems? 98031 - PHQ-9 Billing: Patient declined-do not bill Source: Developed by Drs. Samson Gandara, Jolie Muir, Hamzah Gonzalez and colleagues, with an educational moisés from [employer]. Thrive Questionnaire Date Thrive assessed: 12/04/23 I am a: Patient Within the past 12 months, did the food you bought not last and you didn't have the money to get more?: I choose not to answer this question Within the past 12 months, did you worry whether your food would run out before you got money to buy more?: I choose not to answer this question Do you have trouble paying for medicines?: I choose not to answer this question Do you have trouble getting transportation to medical appointments?: I choose not to answer this question Do you have trouble paying your heating and electricity bill?: I choose not to answer this question Do you have trouble taking care of your child, family member or friend?: I choose not to answer this question Do you have trouble with day-to-day activities such as bathing, preparing meals, shopping, managing finances, etc.?: I choose not to answer this question Are you currently unemployed and looking for a job?: I choose not to answer this question Are you interested in more education?: I choose not to answer this question THRIVE Score: 0 AUDIT C Alcohol Use Questionnaire (AUDIT-C) 1. How often do you have a drink containing alcohol?: Never 3. How often do you have six or more drinks on one occasion?: Never Total Score: 0 ROSE-7 AMB Questionnaire ROSE-7 Date ROSE - 7 assessed: 12/04/23 Source: Developed by Drs. Samson Gandara, Jolie Muir, Hamzah Gonzalez and colleagues, with an educational moisés from [employer]. ROSE-7 Assessment Billing ROSE-7 Assessment Tool: pt declined-do not bill Review of Systems Const All systems reviewed & are unremarkable except as noted in HPI and below Reports no additional complaints Eyes Reports no additional complaints ENT Reports no additional complaints Card Reports no additional complaints Resp Reports no additional complaints GI Reports no additional complaints Reports no additional complaints Physical exam (Primary Care) Vital Signs: Last Vital Signs Pulse 48 L 12/04/23 10:03 BP 120/74 12/04/23 10:03 Pulse Ox 97 12/04/23 10:03 Oxygen Delivery Method Room Air 12/04/23 10:03 BMI result Body Mass Index 27.5 Tobacco/Smoking Status: Tobacco use Status Tobacco use date assessed 12/04/23 12/04/23 10:11 Patient Tobacco Use Status Former Tobacco user 12/04/23 10:11 e-Cigarette/Vaping Use Never Used 12/04/23 10:06 Thrive Assessment: Date of Thrive Assessment Date Thrive assessed 12/04/23 12/04/23 10:11 Const General: no acute distress HENMT Head: Yes normal to inspection Ears: hearing grossly normal bilaterally Face and sinus: Yes normal facial exam Eyes General: appearance normal, both eyes and all related structures Neck Neck: Yes no lymphadenopathy and Yes supple Resp Effort & Inspection: normal respiratory effort Auscultation: clear to auscultation bilaterally Cardio Rhythm: regular rhythm Heart sounds: S1 normal heart sound present and S2 normal heart sound present GI Inspection: Yes normal to inspection Palpation (GI): Soft to palpation Percussion: Yes normal to percussion Auscultation: normal bowel sounds Assessment and Plan Assessment & Plan (1) CLL (chronic lymphocytic leukemia): Comment: f/u with hematology Dr. Asencio Code(s): C91.10 - Chronic lymphocytic leukemia of B-cell type not having achieved remission Plan: Follow-up with Hematology at [facility] (2) HTN (hypertension): Onset Date: Unknown Code(s): I10 - Essential (primary) hypertension Plan: cont meds (3) DM type 2 (diabetes mellitus, type 2): Onset Date: Unknown Comment: cont meds and ADA diet, insurance does not cover SGTP 2 inhibitor Code(s): E11.9 - Type 2 diabetes mellitus without complications Plan: A1C is 8.1, ADA diet, increase exercise, discussed with the patient. He can not afford a SGTP 2i, or GLP 1a. Follow-up in 3 months with a fasting labs before (4) Hyperlipemia: Comment: INTOLERANT to statins : simvastatin, atorvastatin, pravastatin side effect- lower back pain Code(s): E78.5 - Hyperlipidemia, unspecified Plan: Continue rosuvastatin Orders: Orders Hemoglobin A1c 3 Months E11.9 - Type 2 diabetes mellitus without complications, E78.5 - Hyperlipidemia, unspecified, I10 - Essential (primary) hypertension Complete Blood Count Auto Diff 3 Months E11.9 - Type 2 diabetes mellitus without complications, E78.5 - Hyperlipidemia, unspecified, I10 - Essential (primary) hypertension Lipid Panel 3 Months E11.9 - Type 2 diabetes mellitus without complications, E78.5 - Hyperlipidemia, unspecified, I10 - Essential (primary) hypertension Microalbumin, Random (w Creat) 3 Months E11.9 - Type 2 diabetes mellitus without complications, E78.5 - Hyperlipidemia, unspecified, I10 - Essential (primary) hypertension Comprehensive [place]. Panel Fast 3 Months E11.9 - Type 2 diabetes mellitus without complications, E78.5 - Hyperlipidemia, unspecified, I10 - Essential (primary) hypertension Coding Level of Care Code Est Pt Level 4 (39860) Diagnoses CLL (chronic lymphocytic leukemia) C91.10 HTN (hypertension) I10 DM type 2 (diabetes mellitus, type 2) E11.9 Hyperlipemia E78.5
== END 2023-12-04 10:44 | disposition home or self-care (01) ==
PROVIDERS: PCP Internal Medicine; Visit Provider Internal Medicine
DX: C91.10 Chronic lymphocytic leukemia of B-cell type not having achieved remission (principal); I10 Essential (primary) hypertension; E11.9 Type 2 diabetes mellitus without complications; E78.5 Hyperlipidemia, unspecified
CPT/HCPCS: 99214

== ENCOUNTER 2024-02-23 09:07 | Outpatient (REF) | payer MEDICARE, SELFPAY ==
[2024-02-23 11:52] LABS: Basophils Percent Auto 0.3 % (0-2); Eosinophils Absolute Auto 0.1 X10*3/uL (0.0-0.4); Eosinophils Percent Auto 0.6 % (0-4); Hematocrit 40.2 % (42.0-52.0); Hemoglobin 12.4 g/dl (14.0-18.0); Imm Gran Abs Auto 0.01 X10*3/uL (0.00-0.03); Imm Gran Pct Auto 0.1 % (0.0-0.4); Lymphocytes Absolute Auto 9.4 X10*3/uL (1.2-4.9); Lymphocytes Percent Auto 76.1 % (20-40); MANUAL DIFF FLAG SCAN; Mean Corpuscular HGB Conc 30.8 g/dl (31.0-36.0); Mean Corpuscular Hemoglobin 26.8 pg (27.0-33.0); Mean Corpuscular Volume 86.8 fL (80.0-98.0); Monocytes Absolute Auto 0.4 X10*3/uL (0.1-1.2); Monocytes Percent Auto 2.9 % (2-11); Neutrophils Absolute Auto 2.5 x10*3/uL (2.0-8.3); Platelet Count 127 X10*3/uL (160-400); Red Blood Count 4.63 X10*6/uL (4.60-5.80); Red Cell Distribution Width 14.2 % (11.0-16.0); SCAN SMEAR FLAG 1; White Blood Count 12.3 X10*3/uL (4.8-10.8)
[2024-02-23 12:13] LABS: Estimated Average Glucose 171 mg/dL; Hemoglobin A1c % 7.6 % (<6.0)
[2024-02-23 12:24] LABS: Alanine Aminotransferase 27 U/L (0-40); Albumin Level 4.2 g/dL (3.5-5.0); Alkaline Phosphatase 41 U/L (39-117); Anion Gap 11 (12-20); Aspartate Amino Transferase 17 U/L (5-37); Bilirubin Total 0.6 mg/dL (0.0-1.0); Blood Urea Nitrogen 13 mg/dL (9-16); Calcium 9.4 mg/dL (8.4-10.2); Carbon Dioxide 26 mmol/L (22-29); Chloride 109 mmol/L (96-108); Cholesterol 112 mg/dL (<200); Estimated Glomerular Filt Rate > 60; Glucose Fasting 168 mg/dL (60-99); HDL Cholesterol 42 mg/dL (>40); LDL Cholesterol Calculated 49 mg/dL (<100); Potassium 4.3 mmol/L (3.3-5.1); Sodium 142 mmol/L (135-145); Total Protein 6.5 g/dL (6.5-8.0); Triglycerides 108 mg/dL (<150)
[2024-02-23 12:47] LABS: Creatinine Urine 112.42 mg/dL; Microalbum/Creatinine Ratio Ur 36.4 ug/mg cr (<30)
[2024-02-23 13:23] LABS: SLIDE REVIEW VERIFIED
== END 2024-02-23 09:08 | disposition home or self-care (01) ==
LOC: HO.HMGCLDS 09:07
PROVIDERS: PCP Internal Medicine; Visit Provider Internal Medicine
DX: E11.9 Type 2 diabetes mellitus without complications (principal); I10 Essential (primary) hypertension; E78.5 Hyperlipidemia, unspecified
CPT/HCPCS: 36415; 80053; 80061; 82043; 82570; 83036; 85025

== ENCOUNTER 2024-03-01 10:18 | Outpatient (AMB) | payer MEDICARE, SELFPAY ==
--- NOTE | 2024-03-01 10:21 | MHC.PC.OV ---
Vital Signs 03/01/24 10:23 Height 6 ft 3 in Weight 225 lb BMI 28.1 BP 118/74 Blood Pressure Location Lt brachial Position Sitting Pulse 71 Pulse Source Pulse Oximeter Pulse Oximetry (%) 97 Oxygen Delivery Method Room Air Intake Visit Reasons: 3M F/U Intake Note: pt is here for 3 mo f/u. HbA1c 7.6% 02/23/24 Allergies atorvastatin [Lipitor] Adverse Reaction (Unknown, Verified 03/01/24 10:22) back pain Medication List - Last Reconciled 03/01/24 by Chata Curiel MD amlodipine 10 mg PO DAILY aspirin 81 mg PO DAILY blood sugar diagnostic ([employer] Verio test strips) As directed to test blood sugar twice a day finasteride 5 mg PO DAILY 90 days glipizide 20 mg (2 x 10 mg) PO BID lancets ([employer] Delica Plus Lancet) Test blood sugar twice per day lisinopril 20 mg PO DAILY metformin 1,000 mg PO BID metoprolol succinate ER 100 mg PO DAILY pen needle, diabetic (BD Ultra-Fine Mini Pen Needle) 1 QD rosuvastatin (Crestor) 20 mg PO DAILY Tobacco use date assessed: 03/01/24 Dental Screening Dental Screen Date: 03/01/24 Did you have a dental visit in the last 12 months?: Yes Did you have a dental problem in the last 6 months where you did not have access to dental care?: No Was dental information given to patient?: Patient has dentist HPI 3M F/U HPI Details Pt presents for DM 2, hyperlipid, HYPERTENSION BPH, stable on current medications. Patient exercise riding a bike for an hour for the most days of the week [facility] Medical History (Updated 03/01/24 @ 10:48 by Chata Curiel MD) Cough Colonoscopy refused Ascending aorta enlargement Hypertension CLL (chronic lymphocytic leukemia) Hyperlipemia DM type 2 (diabetes mellitus, type 2) (Unknown) HTN (hypertension) (Unknown) Surgical History History of repair of right rotator cuff (Unknown) History of cholecystectomy (Unknown) Family History Father No problems noted. Mother Diabetes Social History Housing: House Alcohol intake: never Patient Tobacco Use Status: Former Tobacco user e-Cigarette/Vaping Use: Never Used service: No Current occupational status: retired Cognitive needs: No Hearing needs: Yes Vision needs: Yes Questionnaire Thrive Questionnaire Date Thrive assessed: 12/04/23 ROSE-7 AMB Questionnaire ROSE-7 Date ROSE - 7 assessed: 12/04/23 Source: Developed by Drs. Samson Gandara, Jolie Muir, Hamzah Gonzalez and colleagues, with an educational moisés from [employer]. Review of Systems Const All systems reviewed & are unremarkable except as noted in HPI and below ENT Reports no additional complaints Card Reports no additional complaints Resp Reports no additional complaints GI Reports no additional complaints Reports no additional complaints Physical exam (Primary Care) Vital Signs: Last Vital Signs Pulse 71 03/01/24 10:23 BP 118/74 03/01/24 10:23 Pulse Ox 97 03/01/24 10:23 Oxygen Delivery Method Room Air 03/01/24 10:23 BMI result Body Mass Index 28.1 Tobacco/Smoking Status: Tobacco use Status Tobacco use date assessed 03/01/24 03/01/24 10:26 Patient Tobacco Use Status Former Tobacco user 03/01/24 10:21 e-Cigarette/Vaping Use Never Used 03/01/24 10:21 Thrive Assessment: Date of Thrive Assessment Date Thrive assessed 12/04/23 03/01/24 10:21 Const General: no acute distress HENMT Mouth: Normal oral and palatal mucosa present Eyes General: appearance normal, both eyes and all related structures Resp Effort & Inspection: normal respiratory effort Auscultation: clear to auscultation bilaterally Cardio Rhythm: regular rhythm Heart sounds: S1 normal heart sound present and S2 normal heart sound present GI Inspection: Yes normal to inspection Palpation (GI): Soft to palpation Assessment and Plan Assessment & Plan (1) HTN (hypertension): Onset Date: Unknown Code(s): I10 - Essential (primary) hypertension Plan: Continue current medications (2) DM type 2 (diabetes mellitus, type 2): Onset Date: Unknown Comment: cont meds and ADA diet, insurance does not cover SGTP 2 inhibitor Code(s): E11.9 - Type 2 diabetes mellitus without complications Plan: A1c is down to 7.6, ADA diet regular physical activity continue current medications discussed with the patient. Return in 3 months with a fasting labs before (3) CLL (chronic lymphocytic leukemia): Comment: f/u with hematology Dr. Asencio Code(s): C91.10 - Chronic lymphocytic leukemia of B-cell type not having achieved remission Plan: Follow-up with Ivana (4) Ascending aorta enlargement: Comment: aortic root enlarged at 4.2 cm Echo 2018, repeat 06/15 unchanged Code(s): I77.89 - Other specified disorders of arteries and arterioles Plan: Stable no need for repeat echocardiogram this year Orders: Orders Hemoglobin A1c 3 Months C91.10 - Chronic lymphocytic leukemia of B-cell type not having achieved remission, E11.9 - Type 2 diabetes mellitus without complications, I10 - Essential (primary) hypertension, I77.89 - Other specified disorders of arteries and arterioles Lipid Panel 3 Months C91.10 - Chronic lymphocytic leukemia of B-cell type not having achieved remission, E11.9 - Type 2 diabetes mellitus without complications, I10 - Essential (primary) hypertension, I77.89 - Other specified disorders of arteries and arterioles Comprehensive [place]. Panel Fast 3 Months C91.10 - Chronic lymphocytic leukemia of B-cell type not having achieved remission, E11.9 - Type 2 diabetes mellitus without complications, I10 - Essential (primary) hypertension, I77.89 - Other specified disorders of arteries and arterioles Microalbumin, Random (w Creat) 3 Months C91.10 - Chronic lymphocytic leukemia of B-cell type not having achieved remission, E11.9 - Type 2 diabetes mellitus without complications, I10 - Essential (primary) hypertension, I77.89 - Other specified disorders of arteries and arterioles Complete Blood Count Auto Diff 3 Months C91.10 - Chronic lymphocytic leukemia of B-cell type not having achieved remission, E11.9 - Type 2 diabetes mellitus without complications, I10 - Essential (primary) hypertension, I77.89 - Other specified disorders of arteries and arterioles Referrals Cologuard Test Z12.11 - Encounter for screening for malignant neoplasm of colon, Z12.12 - Encounter for screening for malignant neoplasm of rectum Coding Level of Care Code Est Pt Level 4 (73768) Diagnoses HTN (hypertension) I10 DM type 2 (diabetes mellitus, type 2) E11.9 CLL (chronic lymphocytic leukemia) C91.10 Ascending aorta enlargement I77.89
[2024-03-01 10:23] VITALS: BP 118/74; PULSE 71; O2SAT 97; BMI 28.1
== END 2024-03-01 10:55 | disposition home or self-care (01) ==
PROVIDERS: PCP Internal Medicine; Visit Provider Internal Medicine
DX: I10 Essential (primary) hypertension (principal); E11.9 Type 2 diabetes mellitus without complications; C91.10 Chronic lymphocytic leukemia of B-cell type not having achieved remission; I77.89 Other specified disorders of arteries and arterioles
CPT/HCPCS: 99214

== ENCOUNTER 2024-04-09 08:51 | Outpatient (REF) | payer MEDICARE, SELFPAY ==
[2024-04-09 10:58] LABS: PSA,Total (Free>4and<10) 4.35 ng/mL (0.00-4.00)
[2024-04-12 10:34] LABS: Free Prostate Spec Ag 1.3 ng/mL; Percent Free Prostate Spec Ag 28 % (calc) (>25); Prostate Specific Ag Total 4.6 ng/mL (< OR = 4.0)
== END 2024-04-09 08:52 | disposition home or self-care (01) ==
LOC: HO.HMGCLDS 08:51
PROVIDERS: PCP Internal Medicine; Visit Provider Urology
DX: R97.20 Elevated prostate specific antigen [PSA] (principal); Z12.5 Encounter for screening for malignant neoplasm of prostate
CPT/HCPCS: 36415; 84153; 84154

== ENCOUNTER 2024-04-16 11:33 | Outpatient (AMB) | payer MEDICARE, SELFPAY ==
--- NOTE | 2024-04-16 12:06 | MHC.OFFVIS ---
Intake Visit Reasons: 6M Follow Up-PSA(SET) Intake Note: Patient is present for 6M F/U PSA Urology Medication:FINESTERIDE Antibiotic Allergy:NONE Blood Thinner:ASPIRIN Machine Edge Bander Required: No Allergies atorvastatin [Lipitor] Adverse Reaction (Unknown, Verified 06/21/24 13:00) back pain HPI Comments Details: Edmond is a pleasant male. He is a patient Dr. Strong. He is seen for the following urologic conditions - elevated PSA - lower urinary tract symptoms PSA continues to remain suppressed with finasteride HbA1c fallen from 8.0 to 7.3 Prior Prostate biopsy shows BPH with inflammation Remain on finasteride, six-month follow-up PSA Lower Urinary Tract Symptoms: 160gm at biopsy Current visit is for further evaluation of, lower urinary tract symptoms, predominate obstructive symptoms. Current treatment includes finasteride. Prostate Symptom Score 06/12 , Moderate (9-19), Bother 3. Symptoms include / , urgency, nocturia (>2), and are progressing. Prior Prostate Score unknown. PSA 06/12 10 09/13 5.2 on finasteride, 02/11 9.6, 07/14 5.3, 02/12 5.6, 07/15 3.6 F 36%, 02/13 4.5, 10/17 4.5 F 27%, 04/16 3.3, 10/18 4.9, 04/17 4.3 Prostate volume 50+gm - very large on exam - Prostate Biopsy 04/15 NAD, Volume 160gm Associated conditions CAD No CVA No diabetes Yes elevated PSA Yes erectile dysfunction Yes Testing at next visit will include bladder scan. Treatment plan Continue finasteride COUNTS INCLUDE 234 BEDS AT [facility] Medical History (Updated 05/25/24 @ 11:47 by Chata Curiel MD) Cough Colonoscopy refused Ascending aorta enlargement Hypertension CLL (chronic lymphocytic leukemia) Hyperlipemia DM type 2 (diabetes mellitus, type 2) (Unknown) HTN (hypertension) (Unknown) Surgical History History of repair of right rotator cuff (Unknown) History of cholecystectomy (Unknown) Family History Father No problems noted. Mother Diabetes Social History Housing: House Alcohol intake: never Patient Tobacco Use Status: Former Tobacco user e-Cigarette/Vaping Use: Never Used service: No Current occupational status: retired Cognitive needs: No Hearing needs: Yes Vision needs: Yes Review of Systems Const Denies chills and Denies fever(s) Card Reports no additional complaints and Denies syncope Resp Denies cough GI Denies abdominal pain and Denies heartburn Reports as per HPI and Denies change in libido Neuro Denies syncope Psych Denies change in libido Endo Denies change in libido Physical Exam Const General: cooperative, healthy appearing, comfortable and no acute distress Orientation/consciousness: patient oriented x3 HEENT Face and sinus: Yes normal facial exam Mouth: moist mucous membranes Neck Neck: Yes normal visual inspection, Yes full ROM and Yes trachea midline Chest Chest palpation & inspection: normal inspection of the chest Resp Effort & Inspection: normal respiratory effort, able to speak in complete sentences and no respiratory distress GI Inspection: Yes normal to inspection Back/Spine/Pelvis Cervical Spine: normal cervical lordosis Thoracic/Lumbar Spine: thoracic and lumbar spine normal to inspection Skin General skin exam: no rashes or lesions noted Neuro General: patient oriented x3, gait normal, tone normal and moves all extremities Extrem General: Yes normal to inspection and Yes capillary refill normal Assessment & Plan Assessment & Plan (1) BPH w urinary obs/LUTS: Code(s): N40.1 - Benign prostatic hyperplasia with lower urinary tract symptoms; N13.8 - Other obstructive and reflux uropathy Category: Medical (2) Elevated PSA: Comment: 04/15 160gm Biopsy Negative Code(s): R97.20 - Elevated prostate specific antigen [PSA] Category: Medical Plan Six-month follow-up Orders: Orders PSA,Total (Free>4and<10) 6 Months N40.1 - Benign prostatic hyperplasia with lower urinary tract symptoms, N13.8 - Other obstructive and reflux uropathy Patient Instructions: Imaging studies, laboratory and physical exam results were discussed and reviewed in detail. No major barriers to patient understanding were identified. An opportunity to ask questions regarding the treatment plan was provided. All questions were answered. The patient expressed understanding and agreement with the above treatment plan. The patient is aware they should contact our office by phone for worsening of their current condition or the appearance of new urologic symptoms. Compliance is encouraged with any medications and followup testing that is ordered. It is a privilege to participate in the urologic care of your patient. If you have any questions or concerns regarding treatment for the above conditions, or other urologic issues, please do not hesitate to contact me. The office telephone contact is [phone]. This note is constructed using voice recognition software. While every effort has been made to ensure accuracy children's minister errors may have been included. Yours sincerely, Dr Haim Schmitt MD, [facility] - Urology Providers of Expert, Compassionate Care for the Genitourinary System Coding Level of Care Code Est Pt Level 3 (36620) Diagnoses BPH w urinary obs/LUTS N40.1; N13.8 Elevated PSA R97.20
== END 2024-04-16 12:45 | disposition home or self-care (01) ==
PROVIDERS: PCP Internal Medicine; Visit Provider Urology
DX: N40.1 Benign prostatic hyperplasia with lower urinary tract symptoms (principal); N13.8 Other obstructive and reflux uropathy; R97.20 Elevated prostate specific antigen [PSA]
CPT/HCPCS: 99213

== ENCOUNTER → 2024-04-16 11:33 | Outpatient (BNVA) | payer MEDICARE, SELFPAY | PROVIDERS: PCP Internal Medicine; Visit Provider Urology | DX: R97.20 Elevated prostate specific antigen [PSA] (principal); N40.1 Benign prostatic hyperplasia with lower urinary tract symptoms; N13.8 Other obstructive and reflux uropathy; Z79.899 Other long term (current) drug therapy | CPT/HCPCS: 99212 ==

== ENCOUNTER 2024-05-17 08:57 | Outpatient (REF) | payer MEDICARE, SELFPAY ==
[2024-05-17 13:39] LABS: Basophils Percent Auto 0.2 % (0-2); Eosinophils Absolute Auto 0.1 X10*3/uL (0.0-0.4); Eosinophils Percent Auto 0.4 % (0-4); Hematocrit 41.9 % (42.0-52.0); Hemoglobin 12.9 g/dl (14.0-18.0); Imm Gran Abs Auto 0.02 X10*3/uL (0.00-0.03); Imm Gran Pct Auto 0.1 % (0.0-0.4); Lymphocytes Percent Auto 77.6 % (20-40); MANUAL DIFF FLAG SCAN; Mean Corpuscular HGB Conc 30.8 g/dl (31.0-36.0); Mean Corpuscular Volume 87.8 fL (80.0-98.0); Mean Platelet Volume 11.4 fL (9.4-12.4); Monocytes Absolute Auto 0.4 X10*3/uL (0.1-1.2); Monocytes Percent Auto 2.7 % (2-11); Neutrophils Absolute Auto 2.6 x10*3/uL (2.0-8.3); Platelet Count 134 X10*3/uL (160-400); Red Blood Count 4.77 X10*6/uL (4.60-5.80); Red Cell Distribution Width 13.7 % (11.0-16.0); SCAN SMEAR FLAG 1; White Blood Count 13.8 X10*3/uL (4.8-10.8)
[2024-05-17 13:40] LABS: Lymphocytes Absolute Auto 10.7 X10*3/uL (1.2-4.9)
[2024-05-17 13:58] LABS: Estimated Average Glucose 169 mg/dL; Hemoglobin A1c % 7.5 % (<6.0)
[2024-05-17 13:59] LABS: Alanine Aminotransferase 36 U/L (0-40); Albumin Level 4.3 g/dL (3.5-5.0); Alkaline Phosphatase 44 U/L (39-117); Anion Gap 9 (12-20); Aspartate Amino Transferase 21 U/L (5-37); Bilirubin Total 0.6 mg/dL (0.0-1.0); Blood Urea Nitrogen 13 mg/dL (9-16); Calcium 9.3 mg/dL (8.4-10.2); Carbon Dioxide 27 mmol/L (22-29); Chloride 109 mmol/L (96-108); Cholesterol 122 mg/dL (<200); Estimated Glomerular Filt Rate > 60; Glucose Fasting 141 mg/dL (60-99); HDL Cholesterol 43 mg/dL (>40); LDL Cholesterol Calculated 56 mg/dL (<100); Potassium 4.3 mmol/L (3.3-5.1); Sodium 141 mmol/L (135-145); Total Protein 6.6 g/dL (6.5-8.0); Triglycerides 119 mg/dL (<150)
[2024-05-17 14:12] LABS: SLIDE REVIEW VERIFIED
[2024-05-17 14:23] LABS: Creatinine Urine 165.69 mg/dL; Microalbum/Creatinine Ratio Ur 20.5 ug/mg cr (<30)
== END 2024-05-17 08:58 | disposition home or self-care (01) ==
LOC: HO.HMGCLDS 08:57
PROVIDERS: PCP Internal Medicine; Visit Provider Internal Medicine
DX: I10 Essential (primary) hypertension (principal); E11.9 Type 2 diabetes mellitus without complications; I77.89 Other specified disorders of arteries and arterioles; C91.10 Chronic lymphocytic leukemia of B-cell type not having achieved remission
CPT/HCPCS: 36415; 80053; 80061; 82043; 82570; 83036; 85025

== ENCOUNTER 2024-05-25 11:01 | Outpatient (AMB) | payer MEDICARE, SELFPAY ==
--- NOTE | 2024-05-25 11:04 | A.OFFPC_ITS ---
Vital Signs 05/25/24 11:05 Height 6 ft 3 in Weight 222 lb BMI 27.7 BP 120/74 Blood Pressure Location Lt brachial Position Sitting Pulse 61 Pulse Source Pulse Oximeter Pulse Oximetry (%) 96 Oxygen Delivery Method Room Air Intake Visit Reasons: 3M F/U Intake Note: Pt is here today for 3 months follow up visit on labs. Allergies atorvastatin [Lipitor] Adverse Reaction (Unknown, Verified 05/25/24 11:06) back pain Medication List - Last Reconciled 05/25/24 by Chata Curiel MD amlodipine 10 mg PO DAILY aspirin 81 mg PO DAILY blood sugar diagnostic ([employer] [facility] [employer] [facility] Verio test strips) As directed to test blood sugar twice a day finasteride 5 mg PO DAILY 90 days glipizide 20 mg (2 x 10 mg) PO BID lancets ([employer] [facility] Delica Plus Lancet) Test blood sugar twice per day lisinopril 20 mg PO DAILY metformin 1,000 mg PO BID metoprolol succinate ER 100 mg PO DAILY pen needle, diabetic (BD Ultra-Fine Mini Pen Needle) 1 QD rosuvastatin (Crestor) 20 mg PO DAILY Tobacco use date assessed: 03/01/24 Fall risk assessment: No Falls in past year Last assessed Fall Risk: 05/25/24 Dental Screening Dental Screen Date: 03/01/24 HPI 3M F/U HPI Details Pt presents for f/u hypertension hyperlipidemia type 2 diabetes PFSH Medical History (Updated 05/25/24 @ 11:47 by Chata Curiel MD) Cough Colonoscopy refused Ascending aorta enlargement Hypertension CLL (chronic lymphocytic leukemia) Hyperlipemia DM type 2 (diabetes mellitus, type 2) (Unknown) HTN (hypertension) (Unknown) Surgical History History of repair of right rotator cuff (Unknown) History of cholecystectomy (Unknown) Family History Father No problems noted. Mother Diabetes Social History Housing: House Alcohol intake: never Patient Tobacco Use Status: Former Tobacco user e-Cigarette/Vaping Use: Never Used service: No Current occupational status: retired Cognitive needs: No Hearing needs: Yes Vision needs: Yes Questionnaire PHQ-9 Over the last 2 weeks, how often have you been bothered by any of the following problems? 1. Little interest or pleasure in doing things: not at all 2. Feeling down, depressed, or hopeless: not at all 3. Trouble falling or staying asleep, or sleeping too much: not at all 4. Feeling tired or having little energy: not at all 5. Poor appetite or overeating: not at all 6. Feeling bad about yourself - or that you are a failure or have let yourself or your family down: not at all 7. Trouble concentrating on things, such as reading the newspaper or watching television: not at all 8. Moving or speaking so slowly that other people could have noticed. Or the opposite - being so fidgety or restless that you have been moving around a lot more than usual: not at all 9. Thoughts that you would be better off or of hurting yourself in some way: not at all Total score: 0 Depression Screening Interpretation: Negative Depression Screening Done: Yes 35406 - PHQ-9 Billing: Yes Source: Developed by Drs. Samson Gandara, Jolie Muir, Hamzah Gonzalez and colleagues, with an educational moisés from [employer]. Thrive Questionnaire Date Thrive assessed: 05/25/24 I am a: Patient What is your living situation today?: I have a steady place to live Within the past 12 months, did the food you bought not last and you didn't have the money to get more?: Never true Within the past 12 months, did you worry whether your food would run out before you got money to buy more?: Never true Do you have trouble paying for medicines?: No Do you have trouble getting transportation to medical appointments?: No Do you have trouble paying your heating and electricity bill?: No Do you have trouble taking care of your child, family member or friend?: No Do you have trouble with day-to-day activities such as bathing, preparing meals, shopping, managing finances, etc.?: No Are you currently unemployed and looking for a job?: No Are you interested in more education?: No Please select the resources that you would like help with: None Currently or been in a relationship where the following occur: I choose not to answer THRIVE Score: 0 AUDIT C Alcohol Use Questionnaire (AUDIT-C) 1. How often do you have a drink containing alcohol?: 2-4 times a month 2. How many drinks containing alcohol do you have on a typical day when you are drinking?: 1 or 2 3. How often do you have six or more drinks on one occasion?: Never Total Score: 2 ROSE-7 AMB Questionnaire ROSE-7 Date ROSE - 7 assessed: 05/25/24 Feeling nervous, anxious, or on edge: 0 = Not at all Not being able to stop or control worryin = Not at all Worrying too much about different things: 0 = Not at all Trouble relaxin = Not at all Being so restless that it is hard to sit still: 0 = Not at all Becoming easily annoyed or irritable: 0 = Not at all Feeling afraid as if something awful might happen: 0 = Not at all Total ROSE-7 score (0-4 normal; 5-9 mild; 10-14 moderate; 15-21 severe): 0 Source: Developed by Drs. Samson Gandara, Jolie Muir, Hamzah Gonzalez and colleagues, with an educational moisés from [employer]. ROSE-7 Assessment Billing ROSE-7 Assessment Tool: ROSE-7 Assessment 97639 Review of Systems Const All systems reviewed & are unremarkable except as noted in HPI and below Card Reports no additional complaints Resp Reports no additional complaints GI Reports no additional complaints Physical exam (Primary Care) Vital Signs: Last Vital Signs Pulse 61 05/25/24 11:05 BP 120/74 05/25/24 11:05 Pulse Ox 96 05/25/24 11:05 Oxygen Delivery Method Room Air 05/25/24 11:05 BMI result Body Mass Index 27.7 Tobacco/Smoking Status: Tobacco use Status Tobacco use date assessed 03/01/24 05/25/24 11:10 Patient Tobacco Use Status Former Tobacco user 05/25/24 11:10 e-Cigarette/Vaping Use Never Used 05/25/24 11:10 PHQ-9: PHQ-9 Score PHQ-9: Total score 0 05/25/24 11:10 Depression Screening Interpretation: Negative Thrive Assessment: Date of Thrive Assessment Date Thrive assessed 05/25/24 05/25/24 11:10 Currently or been in a relationship where the following occur: I choose not to answer Const General: no acute distress Eyes General: appearance normal, both eyes and all related structures Neck Neck: Yes supple Resp Effort & Inspection: normal respiratory effort Auscultation: clear to auscultation bilaterally Cardio Rhythm: regular rhythm Heart sounds: S1 normal heart sound present and S2 normal heart sound present GI Inspection: Yes normal to inspection Palpation (GI): Soft to palpation Percussion: Yes normal to percussion Auscultation: normal bowel sounds Coding Level of Care Code Est Pt Level 4 (91640) Diagnoses Actinic keratoses L57.0 HTN (hypertension) I10 DM type 2 (diabetes mellitus, type 2) E11.9 Additional Codes ROSE-7 Assessment Billing - ROSE-7 Assessment Tool: ROSE-7 Assessment [id number] ([id number]) Assessment & Plan Assessment & Plan (1) Actinic keratoses: Comment: left forearm Code(s): L57.0 - Actinic keratosis Category: Medical Plan: refer to Dermatology (2) HTN (hypertension): Onset Date: Unknown Code(s): I10 - Essential (primary) hypertension Category: Medical Plan: cont meds (3) DM type 2 (diabetes mellitus, type 2): Onset Date: Unknown Comment: cont meds and ADA diet, insurance does not cover SGTP 2 inhibitor Code(s): E11.9 - Type 2 diabetes mellitus without complications Category: Medical Plan: A1c is 7.5. ADA diet increase physical activity weight loss discussed with the patient. He can not afford a SGTP to inhibitor or GLP 1 agonist. FOLLOW-UP IN 3 MONTHS WITH A FASTING LABS. Orders: Orders Comprehensive [place]. Panel Fast 3 Months E11.9 - Type 2 diabetes mellitus without complications, I10 - Essential (primary) hypertension Hemoglobin A1c 3 Months E11.9 - Type 2 diabetes mellitus without complications, I10 - Essential (primary) hypertension Microalbumin, Random (w Creat) 3 Months E11.9 - Type 2 diabetes mellitus without complications, I10 - Essential (primary) hypertension Referrals Dermatology Referral E11.9 - Type 2 diabetes mellitus without complications, I10 - Essential (primary) hypertension, L57.0 - Actinic keratosis
[2024-05-25 11:05] VITALS: BP 120/74; PULSE 61; O2SAT 96; BMI 27.7
== END 2024-05-25 11:47 | disposition home or self-care (01) ==
PROVIDERS: PCP Internal Medicine; Visit Provider Internal Medicine
DX: L57.0 Actinic keratosis (principal); I10 Essential (primary) hypertension; E11.9 Type 2 diabetes mellitus without complications

== ENCOUNTER → 2024-05-25 11:01 | Outpatient (BNVA) | payer MEDICARE, SELFPAY | PROVIDERS: PCP Internal Medicine; Visit Provider Internal Medicine | DX: L57.0 Actinic keratosis (principal); I10 Essential (primary) hypertension; E11.9 Type 2 diabetes mellitus without complications | CPT/HCPCS: 96127; 99212 ==

== ENCOUNTER 2024-06-21 12:52 | Outpatient (AMB) | payer MEDICARE, SELFPAY ==
[2024-06-21 12:57] VITALS: BP 118/66; PULSE 61; O2SAT 97; BMI 27.7
--- NOTE | 2024-06-21 12:57 | A.OFFPC_ITS ---
Vital Signs 06/21/24 12:57 Height 6 ft 3 in Weight 222 lb BMI 27.7 BP 118/66 Blood Pressure Location Rt brachial Position Sitting Pulse 61 Pulse Source Pulse Oximeter Pulse Oximetry (%) 97 Oxygen Delivery Method Room Air Intake Visit Reasons: Cough x2 weeks Intake Note: Pt is here today for a sick visit. Pt c/o cough for couple of weeks now. Pt states that the cough is better now. Allergies atorvastatin [Lipitor] Adverse Reaction (Unknown, Verified 06/21/24 13:00) back pain Tobacco use date assessed: 06/21/24 Fall risk assessment: No Falls in past year Last assessed Fall Risk: 06/21/24 Dental Screening Dental Screen Date: 03/01/24 HPI Cough x2 weeks HPI Details Pt c/o 2 weeks of productive cough, with small amount of clear sputum getting better. Patient denies fever chills pleurisy sore throat sinus congestion. Type 2 diabetes and hypertension are controlled on current medications [facility] Medical History (Updated 05/25/24 @ 11:47 by Chata Curiel MD) Cough Colonoscopy refused Ascending aorta enlargement Hypertension CLL (chronic lymphocytic leukemia) Hyperlipemia DM type 2 (diabetes mellitus, type 2) (Unknown) HTN (hypertension) (Unknown) Surgical History History of repair of right rotator cuff (Unknown) History of cholecystectomy (Unknown) Family History Father No problems noted. Mother Diabetes Social History Housing: House Alcohol intake: never Patient Tobacco Use Status: Former Tobacco user e-Cigarette/Vaping Use: Never Used service: No Current occupational status: retired Cognitive needs: No Hearing needs: Yes Vision needs: Yes Questionnaire Thrive Questionnaire Date Thrive assessed: 05/25/24 I am a: Patient What is your living situation today?: I have a steady place to live Within the past 12 months, did the food you bought not last and you didn't have the money to get more?: Often true Within the past 12 months, did you worry whether your food would run out before you got money to buy more?: Often true Do you have trouble paying for medicines?: No Do you have trouble getting transportation to medical appointments?: No Do you have trouble paying your heating and electricity bill?: No Do you have trouble taking care of your child, family member or friend?: No Do you have trouble with day-to-day activities such as bathing, preparing meals, shopping, managing finances, etc.?: No Are you currently unemployed and looking for a job?: No Are you interested in more education?: No Please select the resources that you would like help with: None Currently or been in a relationship where the following occur: I choose not to answer THRIVE Score: 2 ROSE-7 AMB Questionnaire ROSE-7 Date ROSE - 7 assessed: 05/25/24 Source: Developed by Drs. Samson Gandara, Jolie Muir, Hamzah Gonzalez and colleagues, with an educational moisés from [employer]. Review of Systems Const All systems reviewed & are unremarkable except as noted in HPI and below ENT Reports no additional complaints Card Reports no additional complaints Resp Reports no additional complaints Physical exam (Primary Care) Vital Signs: Last Vital Signs Pulse 61 06/21/24 12:57 BP 118/66 06/21/24 12:57 Pulse Ox 97 06/21/24 12:57 Oxygen Delivery Method Room Air 06/21/24 12:57 BMI result Body Mass Index 27.7 Tobacco/Smoking Status: Tobacco use Status Tobacco use date assessed 06/21/24 06/21/24 13:00 Patient Tobacco Use Status Former Tobacco user 06/21/24 12:58 e-Cigarette/Vaping Use Never Used 06/21/24 12:58 Thrive Assessment: Date of Thrive Assessment Date Thrive assessed 05/25/24 06/21/24 12:58 Currently or been in a relationship where the following occur: I choose not to answer Const General: no acute distress HENMT Head: Yes normal to inspection Ears: TM's normal bilaterally Mouth: Normal oral and palatal mucosa present Throat: Yes postnasal drainage Eyes General: appearance normal, both eyes and all related structures Neck Neck: Yes no lymphadenopathy and Yes supple Resp Effort & Inspection: normal respiratory effort Auscultation: clear to auscultation bilaterally Cardio Rhythm: regular rhythm Heart sounds: S1 normal heart sound present and S2 normal heart sound present Coding Level of Care Code Est Pt Level 3 (49258) Diagnoses Cough R05.9 HTN (hypertension) I10 Assessment & Plan Assessment & Plan (1) Cough: Code(s): R05.9 - Cough, unspecified Category: Medical Plan: Supportive care discussed with the patient. Chest x-ray will be obtained if cough persists and lisinopril will be changed to ARB (2) HTN (hypertension): Onset Date: Unknown Code(s): I10 - Essential (primary) hypertension Category: Medical Plan: CONTINUE CURRENT MEDICATIONS
== END 2024-06-21 14:18 | disposition home or self-care (01) ==
LOC: HO.HMCC 12:53
PROVIDERS: PCP Internal Medicine; Visit Provider Internal Medicine
DX: R05.9 Cough, unspecified (principal); I10 Essential (primary) hypertension

== ENCOUNTER → 2024-06-21 12:52 | Outpatient (BNVA) | payer MEDICARE, SELFPAY | PROVIDERS: PCP Internal Medicine; Visit Provider Internal Medicine | DX: R05.9 Cough, unspecified (principal); I10 Essential (primary) hypertension | CPT/HCPCS: 99212 ==

== ENCOUNTER 2024-08-28 08:33 | Outpatient (REF) | payer MEDICARE, SELFPAY ==
[2024-08-28 11:46] LABS: Alanine Aminotransferase 56 U/L (0-40); Albumin Level 4.2 g/dL (3.5-5.0); Alkaline Phosphatase 47 U/L (39-117); Anion Gap 14 (12-20); Aspartate Amino Transferase 38 U/L (5-37); Bilirubin Total 0.7 mg/dL (0.0-1.0); Blood Urea Nitrogen 13 mg/dL (9-16); Carbon Dioxide 25 mmol/L (22-29); Chloride 108 mmol/L (96-108); Estimated Average Glucose 183 mg/dL; Estimated Glomerular Filt Rate > 60; Glucose Fasting 117 mg/dL (60-99); Hemoglobin A1C 220.9996 umol/L; Potassium 4.5 mmol/L (3.3-5.1); Sodium 142 mmol/L (135-145); Total Hemoglobin (HGBA1C) 3433.0755 umol/L; Total Protein 6.7 g/dL (6.5-8.0)
[2024-08-28 12:03] LABS: Creatinine Urine 167.71 mg/dL; Microalbum/Creatinine Ratio Ur 20.2 ug/mg cr (<30)
== END 2024-08-28 08:34 | disposition home or self-care (01) ==
LOC: HO.HMGCLDS 08:33
PROVIDERS: PCP Internal Medicine; Visit Provider Internal Medicine
DX: E11.9 Type 2 diabetes mellitus without complications (principal); I10 Essential (primary) hypertension
CPT/HCPCS: 36415; 80053; 82043; 82570; 83036

== ENCOUNTER 2024-09-02 10:05 | Outpatient (AMB) | payer MEDICARE, SELFPAY ==
[2024-09-02 10:08] VITALS: BP 116/72; PULSE 56; O2SAT 99; BMI 27.6
--- NOTE | 2024-09-02 10:08 | A.OFFPC_ITS ---
Vital Signs 09/02/24 10:08 Height 6 ft 3 in Weight 221 lb BMI 27.6 BP 116/72 Blood Pressure Location Lt brachial Position Sitting Pulse 56 Pulse Source Pulse Oximeter Pulse Oximetry (%) 99 Oxygen Delivery Method Room Air Intake Visit Reasons: Annual PE - see comments Intake Note: Pt is here today for PE. Allergies atorvastatin [Lipitor] Adverse Reaction (Unknown, Verified 09/02/24 10:35) back pain Medication List - Last Reconciled 09/02/24 by Chata Curiel MD amlodipine 10 mg PO DAILY aspirin 81 mg PO DAILY blood sugar diagnostic (Photo[employer] Verio test strips) As directed to test blood sugar twice a day finasteride 5 mg PO DAILY 90 days glipizide 20 mg (2 x 10 mg) PO BID lancets ([employer] Delica Plus Lancet) Test blood sugar twice per day lisinopril 20 mg PO DAILY metformin 1,000 mg PO BID metoprolol succinate ER 100 mg PO DAILY pen needle, diabetic (BD Ultra-Fine Mini Pen Needle) 1 QD rosuvastatin 20 mg PO DAILY Tobacco use date assessed: 09/02/24 Fall risk assessment: No Falls in past year Last assessed Fall Risk: 09/02/24 Dental Screening Dental Screen Date: 09/02/24 Did you have a dental visit in the last 12 months?: Yes Did you have a dental problem in the last 6 months where you did not have access to dental care?: No Was dental information given to patient?: Patient has dentist HPI Annual PE - see comments HPI Details Patient presents for physical [facility] Medical History (Updated 09/02/24 @ 10:58 by Chata Curiel MD) Zoster Cough Colonoscopy refused Ascending aorta enlargement Hypertension CLL (chronic lymphocytic leukemia) Hyperlipemia DM type 2 (diabetes mellitus, type 2) (Unknown) HTN (hypertension) (Unknown) Surgical History History of repair of right rotator cuff (Unknown) History of cholecystectomy (Unknown) Family History Father No problems noted. Mother Diabetes Social History Housing: House Alcohol intake: never Patient Tobacco Use Status: Former Tobacco user e-Cigarette/Vaping Use: Never Used service: No Current occupational status: retired Cognitive needs: No Hearing needs: Yes Vision needs: Yes Questionnaire PHQ-9 Over the last 2 weeks, how often have you been bothered by any of the following problems? 1. Little interest or pleasure in doing things: not at all 2. Feeling down, depressed, or hopeless: not at all 3. Trouble falling or staying asleep, or sleeping too much: not at all 4. Feeling tired or having little energy: not at all 5. Poor appetite or overeating: not at all 6. Feeling bad about yourself - or that you are a failure or have let yourself or your family down: not at all 7. Trouble concentrating on things, such as reading the newspaper or watching television: not at all 8. Moving or speaking so slowly that other people could have noticed. Or the opposite - being so fidgety or restless that you have been moving around a lot more than usual: not at all 9. Thoughts that you would be better off or of hurting yourself in some way: not at all Total score: 0 Depression Screening Interpretation: Negative Depression Screening Done: Yes 72344 - PHQ-9 Billing: Yes Source: Developed by Drs. Samson Gandara, Jolie Muir, Hamzah Gonzalez and colleagues, with an educational moisés from [employer]. Thrive Questionnaire Date Thrive assessed: 09/02/24 I am a: Patient What is your living situation today?: I have a steady place to live Within the past 12 months, did the food you bought not last and you didn't have the money to get more?: I choose not to answer this question Within the past 12 months, did you worry whether your food would run out before you got money to buy more?: I choose not to answer this question Do you have trouble paying for medicines?: No Do you have trouble getting transportation to medical appointments?: No Do you have trouble paying your heating and electricity bill?: No Do you have trouble taking care of your child, family member or friend?: No Do you have trouble with day-to-day activities such as bathing, preparing meals, shopping, managing finances, etc.?: No Are you currently unemployed and looking for a job?: I choose not to answer this question Are you interested in more education?: No Please select the resources that you would like help with: None Currently or been in a relationship where the following occur: I choose not to answer THRIVE Score: 0 AUDIT C Alcohol Use Questionnaire (AUDIT-C) 1. How often do you have a drink containing alcohol?: Never 3. How often do you have six or more drinks on one occasion?: Never Total Score: 0 ROSE-7 AMB Questionnaire ROSE-7 Date ROSE - 7 assessed: 09/02/24 Feeling nervous, anxious, or on edge: 0 = Not at all Not being able to stop or control worryin = Not at all Worrying too much about different things: 0 = Not at all Trouble relaxin = Not at all Being so restless that it is hard to sit still: 0 = Not at all Becoming easily annoyed or irritable: 0 = Not at all Feeling afraid as if something awful might happen: 0 = Not at all Total ROSE-7 score (0-4 normal; 5-9 mild; 10-14 moderate; 15-21 severe): 0 Source: Developed by Drs. Samson Gandara, Jolie Muir, Hamzah Gonzalez and colleagues, with an educational moisés from [employer]. ROSE-7 Assessment Billing ROSE-7 Assessment Tool: ROSE-7 Assessment 08791 Review of Systems Const All systems reviewed & are unremarkable except as noted in HPI and below Eyes Reports no additional complaints ENT Reports no additional complaints Card Reports no additional complaints Resp Reports no additional complaints GI Reports no additional complaints Reports no additional complaints Physical exam (Primary Care) Vital Signs: Last Vital Signs Pulse 56 09/02/24 10:08 BP 116/72 09/02/24 10:08 Pulse Ox 99 09/02/24 10:08 Oxygen Delivery Method Room Air 09/02/24 10:08 BMI result Body Mass Index 27.6 Tobacco/Smoking Status: Tobacco use Status Tobacco use date assessed 09/02/24 09/02/24 10:34 Patient Tobacco Use Status Former Tobacco user 09/02/24 10:11 e-Cigarette/Vaping Use Never Used 09/02/24 10:11 PHQ-9: PHQ-9 Score PHQ-9: Total score 0 09/02/24 10:35 Depression Screening Interpretation: Negative Thrive Assessment: Date of Thrive Assessment Date Thrive assessed 09/02/24 09/02/24 10:11 Currently or been in a relationship where the following occur: I choose not to answer Const General: no acute distress HENMT Head: Yes normal to inspection General nose exam: Normal external nose present Face and sinus: Yes normal facial exam Eyes General: appearance normal, both eyes and all related structures Neck Neck: Yes no lymphadenopathy and Yes supple Resp Effort & Inspection: normal respiratory effort Auscultation: clear to auscultation bilaterally Cardio Rhythm: regular rhythm Heart sounds: S1 normal heart sound present and S2 normal heart sound present GI Inspection: Yes normal to inspection Palpation (GI): Soft to palpation Percussion: Yes normal to percussion Auscultation: normal bowel sounds Extrem General: Yes no clubbing, cyanosis or edema Coding Level of Care Code Est Pt Prev Care >65y(88390) Diagnoses CLL (chronic lymphocytic leukemia) C91.10 Annual physical exam Z00.00 Hyperlipemia E78.5 HTN (hypertension) I10 DM type 2 (diabetes mellitus, type 2) E11.9 Ascending aorta enlargement I77.89 Elevated PSA R97.20 Colonoscopy refused Z53.20 Additional Codes ROSE-7 Assessment Billing - ROSE-7 Assessment Tool: ROSE-7 Assessment 13046 ([id number]) PHQ-9 - 27489 - PHQ-9 Billing: Yes ([id number]) Assessment & Plan Assessment & Plan (1) CLL (chronic lymphocytic leukemia): Comment: f/u with hematology Dr. Asencio Code(s): C91.10 - Chronic lymphocytic leukemia of B-cell type not having achieved remission Category: Medical Plan: Follow-up with Hematology (2) Annual physical exam: Code(s): Z00.00 - Encounter for general adult medical examination without abnormal findings Category: Medical Plan: Well-balanced diet regular physical activity discussed with the patient (3) Hyperlipemia: Comment: INTOLERANT to statins : simvastatin, atorvastatin, pravastatin side effect- lower back pain Code(s): E78.5 - Hyperlipidemia, unspecified Category: Medical Plan: Continue crestor (4) HTN (hypertension): Onset Date: Unknown Code(s): I10 - Essential (primary) hypertension Category: Medical Plan: Continue current medications (5) DM type 2 (diabetes mellitus, type 2): Onset Date: Unknown Comment: cont meds and ADA diet, insurance does not cover SGTP 2 inhibitor Code(s): E11.9 - Type 2 diabetes mellitus without complications Category: Medical Plan: A1c is 8.0 from 7.5, ADA diet increase exercise weight loss discussed with the patient .Mounjaro 2.5 mg weekly will be tried, follow-up in 3 months with a fasting labs before (6) Ascending aorta enlargement: Comment: aortic root enlarged at 4.2 cm Echo 2018, repeat 06/15 unchanged Code(s): I77.89 - Other specified disorders of arteries and arterioles Category: Medical Plan: Monitor by Cardiology (7) Elevated PSA: Comment: 04/15 160gm Biopsy Negative Code(s): R97.20 - Elevated prostate specific antigen [PSA] Category: Medical Plan: Follow-up with urology (8) Colonoscopy refused: Comment: Negative Cologuard 02/2024 Code(s): Z53.20 - Procedure and treatment not carried out because of patient's decision for unspecified reasons Category: Medical Plan: Negative Cologuard 02/2024 Orders: Orders Comprehensive [place]. Panel Fast 3 Months C91.10 - Chronic lymphocytic leukemia of B-cell type not having achieved remission, E11.9 - Type 2 diabetes mellitus without complications, E78.5 - Hyperlipidemia, unspecified, I10 - Essential (primary) hypertension Microalbumin, Random (w Creat) 3 Months C91.10 - Chronic lymphocytic leukemia of B-cell type not having achieved remission, E11.9 - Type 2 diabetes mellitus without complications, E78.5 - Hyperlipidemia, unspecified, I10 - Essential (primary) hypertension Complete Blood Count Auto Diff 3 Months C91.10 - Chronic lymphocytic leukemia of B-cell type not having achieved remission, E11.9 - Type 2 diabetes mellitus without complications, E78.5 - Hyperlipidemia, unspecified, I10 - Essential (primary) hypertension Hemoglobin A1c 3 Months C91.10 - Chronic lymphocytic leukemia of B-cell type not having achieved remission, E11.9 - Type 2 diabetes mellitus without complications, E78.5 - Hyperlipidemia, unspecified, I10 - Essential (primary) hypertension Lipid Panel 3 Months C91.10 - Chronic lymphocytic leukemia of B-cell type not having achieved remission, E11.9 - Type 2 diabetes mellitus without complications, E78.5 - Hyperlipidemia, unspecified, I10 - Essential (primary) hypertension Medications: New tirzepatide (Mounjaro) 2.5 mg (0.5 mL) subcut QWEEK 2 mL 3RF
== END 2024-09-02 10:54 | disposition home or self-care (01) ==
PROVIDERS: PCP Internal Medicine; Visit Provider Internal Medicine
DX: Z00.00 Encounter for general adult medical examination without abnormal findings (principal); E11.69 Type 2 diabetes mellitus with other specified complication; C91.10 Chronic lymphocytic leukemia of B-cell type not having achieved remission; I77.89 Other specified disorders of arteries and arterioles; E78.5 Hyperlipidemia, unspecified; I10 Essential (primary) hypertension; R97.20 Elevated prostate specific antigen [PSA]; Z53.20 Procedure and treatment not carried out because of patient's decision for unspecified reasons

== ENCOUNTER → 2024-09-02 10:05 | Outpatient (BNVA) | payer MEDICARE, SELFPAY | PROVIDERS: PCP Internal Medicine; Visit Provider Internal Medicine | DX: Z00.00 Encounter for general adult medical examination without abnormal findings (principal); C91.10 Chronic lymphocytic leukemia of B-cell type not having achieved remission; E78.5 Hyperlipidemia, unspecified; I10 Essential (primary) hypertension; E11.9 Type 2 diabetes mellitus without complications; I77.89 Other specified disorders of arteries and arterioles; R97.20 Elevated prostate specific antigen [PSA] | CPT/HCPCS: 96127; 99397 ==

== ENCOUNTER 2024-10-09 08:12 | Outpatient (REF) | payer MEDICARE, SELFPAY ==
[2024-10-09 11:59] LABS: PSA,Total (Free>4and<10) 4.71 ng/mL (0.00-4.00)
[2024-10-12 12:13] LABS: Free Prostate Spec Ag 1.5 ng/mL; Percent Free Prostate Spec Ag 33 % (calc) (>25); Prostate Specific Ag Total 4.5 ng/mL (< OR = 4.0)
== END 2024-10-09 08:13 | disposition home or self-care (01) ==
LOC: HO.HMGCLDS 08:12
PROVIDERS: PCP Internal Medicine; Visit Provider Urology
DX: N40.1 Benign prostatic hyperplasia with lower urinary tract symptoms (principal); N13.8 Other obstructive and reflux uropathy; Z12.5 Encounter for screening for malignant neoplasm of prostate
CPT/HCPCS: 36415; 84153; 84154

== ENCOUNTER 2024-10-19 09:24 | Outpatient (AMB) | payer MEDICARE, SELFPAY ==
--- NOTE | 2024-10-19 09:24 | A.OFFVIS_ITS ---
Intake Visit Reasons: 6M PSA(Set)Elevated Intake Note: Patient is present for 6M PSA ELEVATED Urology Medication:FINASTERIDE Antibiotic Allergy:ATORVASTATIN Blood Thinner:ASPIRIN Security System Sales Consultant Required: No Allergies atorvastatin [Lipitor] Adverse Reaction (Unknown, Verified 10/19/24 09:25) back pain HPI Comments Details: Edmond is a pleasant male. He is a patient Dr. Strong. He is seen for the following urologic conditions - elevated PSA - lower urinary tract symptoms Telemedicine Evaluation 15 min Consultation Glanse Ramiro Video Six-month follow-up PSA continues to remain controlled HbA1c fallen from 8.0 to 7.3 Prior Prostate biopsy shows BPH with inflammation Remain on finasteride, six-month follow-up PSA Background of CLL so has some degree of immunocompromise with diabetes Lower Urinary Tract Symptoms: 160gm at biopsy Current visit is for further evaluation of, lower urinary tract symptoms, predominate obstructive symptoms. Current treatment includes finasteride. Prostate Symptom Score 10/ , Moderate (9-19), Bother 3. Symptoms include 10/ , urgency, nocturia (>2), and are progressing. Prior Prostate Score unknown. PSA 06/12 10 09/13 5.2 on finasteride, 02/11 9.6, 07/14 5.3, 02/12 5.6, 07/15 3.6 F 36%, 02/13 4.5, 10/17 4.5 F 27%, 04/16 3.3, 10/18 4.9, 04/17 4.3, 10/19 4.5 33% Prostate volume 50+gm - very large on exam - Prostate Biopsy 04/15 NAD, Volume 160gm Associated conditions CAD No CVA No diabetes Yes elevated PSA Yes erectile dysfunction Yes Testing at next visit will include bladder scan. Treatment plan Continue finasteride [facility] Medical History (Updated 09/02/24 @ 10:58 by Chata Curiel MD) Zoster Cough Colonoscopy refused Ascending aorta enlargement Hypertension CLL (chronic lymphocytic leukemia) Hyperlipemia DM type 2 (diabetes mellitus, type 2) (Unknown) HTN (hypertension) (Unknown) Surgical History History of repair of right rotator cuff (Unknown) History of cholecystectomy (Unknown) Family History Father No problems noted. Mother Diabetes Social History Housing: House Alcohol intake: never Patient Tobacco Use Status: Former Tobacco user e-Cigarette/Vaping Use: Never Used service: No Current occupational status: retired Cognitive needs: No Hearing needs: Yes Vision needs: Yes Review of Systems Const All systems reviewed & are unremarkable except as noted in HPI and below Reports no additional complaints Resp Reports no additional complaints GI Reports no additional complaints Reports as per HPI Musc Reports no additional complaints Physical Exam Telemedicine evaluation Appropriate responses Regular breathing rate and rhythm HEENT Head: Yes normal to inspection Ears: hearing grossly normal bilaterally Eyes General: appearance normal, both eyes and all related structures Neck Neck: Yes normal visual inspection Chest Chest palpation & inspection: normal inspection of the chest Resp Effort & Inspection: normal respiratory effort and able to speak in complete sentences Telehealth Telehealth Telehealth Platform: Glanse Location of provider rendering services: practice address Location of patient: address on file Patient Identification confirmed using: Name, : Yes Telehealth method: video Patient verbally consented to treatment: Yes Patient verbally consented to billing insurance company: Yes Patient informed of any privacy concerns related to visit: Yes Minutes spent on Phone/Video with Pt.: 15 Assessment & Plan Assessment & Plan (1) BPH w urinary obs/LUTS: Code(s): N40.1 - Benign prostatic hyperplasia with lower urinary tract symptoms; N13.8 - Other obstructive and reflux uropathy Category: Medical (2) Elevated PSA: Comment: 04/15 160gm Biopsy Negative Code(s): R97.20 - Elevated prostate specific antigen [PSA] Category: Medical Plan Six-month follow-up PSA office Orders: Orders PSA,Total (Free>4and<10) 6 Months R97.20 - Elevated prostate specific antigen [PSA] Patient Instructions: This note is constructed using voice recognition software. While every effort has been made to ensure accuracy parquet floor layer's helper errors may have been included. Imaging studies, laboratory and physical exam results were discussed and reviewed in detail. No major barriers to patient understanding were identified. An opportunity to ask questions regarding the treatment plan was provided. All questions were answered. The patient expressed understanding and agreement with the above treatment plan. The patient is aware they should contact our office by phone for worsening of their current condition or the appearance of new urologic symptoms. Compliance is encouraged with any medications and followup testing that is ordered. It is a privilege to participate in the urologic care of your patient. If you have any questions or concerns regarding treatment for the above conditions, or other urologic issues, please do not hesitate to contact me. The office telephone contact is [phone]. Sincerely, Dr Haim Schmitt MD, [facility] - Urology Compassionate Specialist Care for the Genitourinary System Coding Level of Care Code Tele Est Pt Level 3 (19537) Complex EM visit Add On G2211 Diagnoses BPH w urinary obs/LUTS N40.1; N13.8 Elevated PSA R97.20
--- OUTSIDE RECORDS SUMMARY | 2024-10-19 10:25 | XMS_ITS | Clinical Summary ---
Author Organization [facility] ity Address [address] [place] [address] Care Team Providers Care Solo Truck Driver Name Role Phone Chata Curiel MD Primary Care Provider [phone] Allergies No known active allergies Medications amLODIPine (NORVASC) 10 mg tablet Take 1 tablet (10 mg total) by mouth daily. Active aspirin 81 mg EC tablet Take 1 tablet (81 mg total) by mouth daily. Active glipiZIDE (GLUCOTROL) 10 mg tablet Take 1 tablet (10 mg total) by mouth 2 (two) times a day before breakfast and dinner. Active lisinopriL (PRINIVIL,ZESTR IL) 10 mg tablet Take 1 tablet (10 mg total) by mouth daily. Active metFORMIN (GLUCOPHAGE) 1,000 mg tablet Take 1 tablet (1,000 mg total) by mouth 2 (two) times a day with meals. Active metoprolol succinate (TOPROL-XL) 100 mg 24 hr tablet Take by mouth daily. Active pravastatin (PRAVACHOL) 40 mg tablet Take 1 tablet (40 mg total) by mouth daily. Active Family History Medical History Relation Name Comments Diabetes Brother Diabetes Father Diabetes Mother Diabetes Sister Relation Name Status Comments Brother Father Mother Sister Social History Tobacco Use Types Packs/Day Years Used Date Smoking Tobacco: Former Smokeless Tobacco: Never Alcohol Use Standard Drinks/Week Comments Yes 0 (1 standard drink = 0.6 oz pur e alcohol) Sex and Gender Information Value Date Recorded Sex Assigned at Not on file Legal Sex Male 7:45 PM EST Gender Identity Not on file Sexual Orientation Not on file Obstetrics History Last Filed Vital Signs Vital Sign Reading Time Taken Comments Blood Pressure 140/65 04/13/2024 9:01 AM EDT Sitting Left arm Pulse 63 04/13/2024 9:01 AM EDT Temperature - - Respiratory Rate - - Oxygen Saturation - - Inhaled Oxygen Concentration - - Weight 101 kg (222 lb 6.4 oz) 04/13/2024 9:01 AM EDT Height 190.5 cm (6' 3 ) 2023 8:58 AM EDT Body Mass Index 27.8 2023 8:58 AM EDT Plan of Treatment Upcoming Encounters Date Type Department Care Team (Late st Contact Info) Description 12/07/2024 10:30 AM EDT Office Visit [facility] Hematology Oncology [address] [place] [address] Kendall Asencio MD [address] [place] [address] Health Maintenance Due Date Last Done Comments COVID-19 Vaccine (#1) 1956 DTaP,Tdap,and Td Vaccines (1 - Tdap) 1970 Pneumococcal Vaccine: 50+ Ye ars (1 of 2 - PCV) 1970 Zoster Vaccines (1 of 2) 1970 Abdominal Aortic Aneurysm (A AA) Screen 08/02/2022 Cholesterol Screening (Lipid Panel) 08/02/2022 Colorectal Cancer Screening: Colonoscopy 08/02/2022 Depression Screening 08/02/2022 Falls Risk Assessment 08/02/2022 Hepatitis C Screening 08/02/2022 Medicare Annual Wellness Visit 08/02/2022 Social Influencers of Health Screening 08/02/2022 Influenza Vaccine (#1) 2024 RSV Immunization Patients 60 + Years Old (1 - 1-dose 75+ series) 2026 HIB Vaccines Aged Out No longer eligi ble based on patient's age to complete this topic HPV Vaccines Aged Out No longer eligi ble based on patient's age to complete this topic Hepatitis A Vaccines Aged Out No long er eligible based on patient's age to complete this topic Hepatitis B Vaccines Aged Out No long er eligible based on patient's age to complete this topic IPV Vaccines Aged Out No longer eligi ble based on patient's age to complete this topic MMR Vaccines Aged Out No longer eligi ble based on patient's age to complete this topic Meningococcal ACWY Vaccine Aged Out N o longer eligible based on patient's age to complete this topic Meningococcal B Vacine Aged Out No lo nger eligible based on patient's age to complete this topic RSV Immunization Patients Un teresa 20 months Aged Out No longer eligible b ased on patient's age to complete this topic Varicella Vaccines Aged Out No longer eligible based on patient's age to complete this topic Insurance [employer] MEDICARE Care Teams Solo Truck Driver Relationship Specialty Start Date End Date Chata Curiel MD PCP - General Product Safety Professional 03/09/20
--- OUTSIDE RECORDS SUMMARY | 2024-10-19 10:25 | XMS_ITS | Clinical Summary ---
Author Organization [facility] Address [address] [place] [address] Care Team Providers Care Dude Wrangler Name Role Phone Chata Curiel MD Primary Care Provider [phone] Allergies No known active allergies Medications Medication Sig Dispensed Refills Start Date End Date Status metFORMIN (GLUCOPHAGE) tablet 1000 mg Take 1 tablet (1,000 mg total) by mouth 2 (two) times a day with meals. 0 Active pravastatin (PRAVACHOL) tablet 40 mg Take 1 tablet (40 mg total) by mouth daily. 0 Active aspirin EC 81 MG tablet Take 1 tablet (81 mg total) by mouth daily. 0 Active glipiZIDE (GLUCOTROL) tablet 10 mg Take 1 tablet (10 mg total) by mouth 2 (two) times a day before breakfast and dinner. 0 Active amLODIPine (NORVASC) tablet 10 mg Take 1 tablet (10 mg total) by mouth daily. 0 Active lisinopril (PRINIVIL,ZESTRIL) tablet 10 mg Take 1 tablet (10 mg total) by mouth daily. 0 Active metoprolol succinate (TOPROL-XL) 24 hr tablet 100 mg Take by mouth daily. 0 Active Active Problems No known active problems Family History Medical History Relation Name Comments Diabetes Brother Diabetes Father Diabetes Mother Diabetes Sister Relation Name Status Comments Brother Father Mother Sister Social History Tobacco Use Types Packs/Day Years Used Date Smoking Tobacco: Former Smokeless Tobacco: Never Comments:30years Alcohol Use Standard Drinks/Week Comments Yes 0 (1 standard drink = 0.6 oz pur e alcohol) Socially Sex and Gender Information Value Date Recorded Sex Assigned at Not on file Gender Identity Not on file Sexual Orientation Not on file Job Start Date Occupation Industry Not on file Not on file Not on file Last Filed Vital Signs Vital Sign Reading Time Taken Comments Blood Pressure 140/65 04/13/2024 9:01 AM EDT Pulse 63 04/13/2024 9:01 AM EDT Temperature 36.7 ??C (98 ??F) 04/13/2024 9:01 AM EDT Respiratory Rate - - Oxygen Saturation 99% 04/13/2024 9:01 AM EDT Inhaled Oxygen Concentration - - Weight 100.9 kg (222 lb 6.4 oz) 04/13/2024 9:01 AM EDT Height 190.5 cm (6' 3 ) 2023 8:58 AM EDT Body Mass Index 27.8 2023 8:58 AM EDT Plan of Treatment Health Maintenance Due Date Last Done Comments Hepatitis C Screening 1951 COVID-19 Vaccine (#1) 1956 Pneumococcal Vaccine (1 of 2 - PCV) 1957 Depression Screening 1963 Preventative Health Evaluation 1969 DTap / Tdap / Td (1 - Tdap) 1970 Shingrix-Zoster Vaccine (1 of 2) 1970 Colon Cancer Screening (Colonoscopy) 1996 Fall Risk Assessment 2016 Influenza Vaccine (#1) 2024 RSV Adult > 60+ Yrs or Pregn ant (1 - 1-dose 75+ series) 2026 Hepatitis B Vaccines Aged Out No long er eligible based on patient's age to complete this topic RSV Ped < 20 months Aged Out No longe r eligible based on patient's age to complete this topic Care Teams Dude Wrangler Relationship Specialty Start Date End Date Chata Curiel MD [address] [facility] [place] [address] PCP - General Ui Ux Engineer 03/09/20
== END 2024-10-19 10:17 | disposition home or self-care (01) ==
LOC: HO.HUSH 09:24
PROVIDERS: PCP Internal Medicine; Visit Provider Urology
DX: N40.1 Benign prostatic hyperplasia with lower urinary tract symptoms (principal); N13.8 Other obstructive and reflux uropathy; R97.20 Elevated prostate specific antigen [PSA]
CPT/HCPCS: 99213; G2211

== ENCOUNTER 2024-12-01 09:21 | Outpatient (REF) | payer MEDICARE, SELFPAY ==
--- OUTSIDE RECORDS SUMMARY | 2024-12-01 10:01 | XMS_ITS | Clinical Summary ---
Author Organization [facility] Address [address] [place] [address] Phone Care Team Providers Care Fisher Hand Line Name Role Phone Chata Curiel MD Primary Care Provider [phone] Allergies No known active allergies Medications amLODIPine [...] Description 12/07/2024 10:30 AM EDT Office Visit [facility] Hematology Oncology [address] [place] [id number] Kendall Asencio MD [address] [place] [address] Health Maintenance Due Date Last Done Comments DTaP,Tdap,and Td Vaccines (1 - Tdap) 1970 Pneumococcal Vaccine: 50+ Years (1 of 2 - PCV) 1970 Zoster Vaccines (1 of 2) 1970 COVID-19 Vaccine (3 - Modern a risk series) 02/01/2021 01/04/2021, 12/07/2020 Abdominal Aortic Aneurysm (AAA) Screen 08/02/2022 Cholesterol Screening (Lipid Panel) 08/02/2022 Colorectal Cancer Screening: Colonoscopy 08/02/2022 Depression Screening 08/02/2022 Falls Risk Assessment 08/02/2022 Hepatitis C Screening 08/02/2022 Medicare Annual Wellness Visit 08/02/2022 Social Influencers of Health Screening 08/02/2022 Influenza Vaccine (Season Ended) 2025 RSV Immunization Adult Patients (1 - 1-dose 75+ series) 2026 HIB [...] age to complete this topic Meningococcal B Vaccine Aged Out No l onger eligible based on patient's age to complete this topic RSV Immunization Patients Under 20 months Aged Out No longer eligible b ased on patient's age to complete this topic Varicella Vaccines Aged Out No longer eligible based on patient's age to complete this topic Procedures Procedure Name Priority Date/Time Associated Diagnosis Comments MANUAL DIFFERENTIAL - SYSMEX WAM Routine 11/30/2024 8:14 AM EDT Lymphocytic lymphosarcoma (CMS/HCC) CBC WITH AUTO DIFFERENTIAL Routine 11/30/2024 8:14 AM EDT Lymphocytic lymphosarcoma (CMS/HCC) CBC AND DIFFERENTIAL Routine 11/30/2024 8:14 AM EDT Lymphocytic lymphosarcoma (CMS/HCC) BETA 2 MICROGLOBULIN, SERUM Routine 11/30/2024 8:14 AM EDT Lymphocytic lymphosarcoma (CMS/HCC) LACTATE DEHYDROGENASE Routine 11/30/2024 8:14 AM EDT Lymphocytic lymphosarcoma (CMS/HCC) from Last 3 Months Results * (ABNORMAL) Manual differential (11/30/2024 8:14 AM EDT) Neutrophils % 25.0 % LAB HEMETOLOGY METHOD 11/30/2024 10:49 AM EDT [facility] Lymphocytes % 71.0 % LAB HEMETOLOGY METHOD 11/30/2024 10:49 AM EDT [facility] Monocytes % 5.0 % LAB HEMETOLOGY METHOD 11/30/2024 10:49 AM EDT [facility] Eosinophils % 0.0 % LAB HEMETOLOGY METHOD 11/30/2024 10:49 AM [facility] Basophils % 0.0 % LAB HEMETOLOGY METHOD 11/30/2024 10:49 AM EDT [facility] Neutrophils Absolute Manual 3.40 1.50 - 7.00 K/mcL LAB HEMETOLOGY METHOD 11/30/2024 10:49 AM EDT [facility] Lymphocytes Absolute 9.66(H) 1.00 - 5.00 K/mcL LAB HEMETOLOGY METHOD 11/30/2024 10:49 AM EDT [facility] Monocytes Absolute Manual 0.68 0.20 - 1.00 K/mcL LAB HEMETOLOGY METHOD 11/30/2024 10:49 AM EDT [facility] Eosinophils Absolute Manual 0.00 0.00 - 0.50 K/mcL LAB [facility] Basophils Absolute Manual 0.00 0.00 - 0.20 K/[facility] LAB HEMETOLOGY METHOD 11/30/2024 10:49 AM EDT [facility] Rbc Morphology Present( A) Consistent with indices, Normal for [place] LAB HEMETOLOGY METHOD 11/30/2024 10:49 AM EDT [facility] Comment:RBC: Morphology agre es with CBC Platelet Morphology - WAM See Note(A) Normal LAB HEMETOLOGY METHOD 11/30/2024 10:49 AM EDT [facility] Comment:PLT: Normal Ovalocytes Present 5 - 10%(A) (none) LAB HEMETOLOGY METHOD 11/30/2024 10:49 AM EDT [facility] Blood Venous blood specimen / Unknown Venipuncture / Unknown 11/30/2024 8:14 AM EDT 11/30/2024 10:05 AM EDT us Kendall Asencio MD LAB BLOOD ORDERABLES Final R esult [facility] [address] [place] [address], * (ABNORMAL) CBC auto differential (11/30/2024 8:14 AM EDT) [facility] WBC 13.6(H) 4.8 - 10.8 K/mcL LAB HEMETOLOGY METHOD 11/30/2024 10:49 AM [facility] RBC 4.50 4.50 - 5.50 M/mcL LAB HEMETOLOGY METHOD 11/30/2024 10:49 AM [facility] Hemoglobin 12.1(L) 13.5 - 17.5 g/dL LAB HEMETOLOGY METHOD 11/30/2024 10:49 AM [facility] Hematocrit 39.0(L) 42.0 - 54.0 % LAB HEMETOLOGY METHOD 11/30/2024 10:49 AM [facility] MCV 87.6 79.0 - 98.0 FL LAB HEMETOLOGY METHOD 11/30/2024 10:49 AM [facility] MCH 27.2 27.0 - 32.0 pcg LAB HEMETOLOGY METHOD 11/30/2024 10:49 AM [facility] MCHC 31.0(L) 32.0 - 37.0 g/dL LAB HEMETOLOGY METHOD 11/30/2024 10:49 AM [facility] RDW 13.8 11.0 - 15.0 % LAB HEMETOLOGY METHOD 11/30/2024 10:49 AM [facility] Platelets 142 130 - 400 K/mcL LAB HEMETOLOGY METHOD 11/30/2024 10:49 AM [facility] MPV 11.4(H) 7.0 - 11.0 FL LAB HEMETOLOGY METHOD 11/30/2024 10:49 AM [facility] NRBC 0.0 <1.0 % LAB HEMETOLOGY METHOD 11/30/2024 10:49 AM [facility] NRBC Absolute 0.00 <0.10 K/mcL LAB HEMETOLOGY METHOD 11/30/2024 10:49 AM EDT [facility] Blood Venous blood specimen / Unknown Venipuncture / Unknown 11/30/2024 8:14 AM EDT 11/30/2024 10:05 AM EDT Kendall Asencio MD LAB BLOOD ORDERABLES Final R esult Performing Organization Address City/[facility] Co de Phone Number [facility] [address] [place] [address], [place] [phone] * Lactate dehydrogenase (11/30/2024 8:14 AM EDT) LDH 127 120 - 246 unit/L LAB CHEMISTRY METHOD 11/30/2024 10:39 AM EDT [facility] Blood Venous blood specimen / Unknown Venipuncture / Unknown 11/30/2024 8:14 AM EDT 11/30/2024 10:05 AM EDT Kendall Asencio MD LAB BLOOD ORDERABLES Final R esult Performing Organization Address [facility] de Phone Number [facility] [address] [place] [address], [place] [phone] * (ABNORMAL) Beta 2 microglobulin, serum (11/30/2024 8:14 AM EDT) Beta-2 Microglobulin 2.3(H) 0.7 - 1.8 mg/L LAB CHEMISTRY METHOD 11/30/2024 10:39 AM EDT [facility] Blood Venous blood specimen / Unknown Venipuncture / Unknown 11/30/2024 8:14 AM EDT 11/30/2024 10:05 AM EDT Kendall Asencio MD LAB BLOOD ORDERABLES Final R esult [facility] [address] [place] [address], from Last 3 Months Insurance [employer] MEDICARE Care Teams Fisher Hand Line Relationship Specialty Start Date End Date Chata Curiel MD [address] [place] [address] PCP - General Product Marketer 03/09/20
--- OUTSIDE RECORDS SUMMARY | 2024-12-01 10:01 | XMS_ITS | Clinical Summary ---
Author Organization [facility] Address [address] [place] [address] Care Team Providers Care Scale Mechanic Name Role Phone Chata Curiel MD Primary Care Provider [phone] Allergies No known active allergies Medications Medication [...] age to complete this topic Care Teams Scale Mechanic Relationship Specialty Start Date End Date Chata Curiel MD [address] [place] [address] PCP - General Safety And Skill Based Pay Manager 03/09/20
[2024-12-01 13:50] LABS: Basophils Percent Auto 0.3 % (0-2); Eosinophils Absolute Auto 0.1 X10*3/uL (0.0-0.4); Eosinophils Percent Auto 0.4 % (0-4); Hematocrit 39.9 % (42.0-52.0); Hemoglobin 12.1 g/dl (14.0-18.0); Imm Gran Abs Auto 0.02 X10*3/uL (0.00-0.03); Imm Gran Pct Auto 0.1 % (0.0-0.4); Lymphocytes Percent Auto 79.3 % (20-40); MANUAL DIFF FLAG SCAN; Mean Corpuscular HGB Conc 30.3 g/dl (31.0-36.0); Mean Corpuscular Hemoglobin 26.4 pg (27.0-33.0); Mean Corpuscular Volume 87.1 fL (80.0-98.0); Mean Platelet Volume 11.3 fL (9.4-12.4); Monocytes Absolute Auto 0.3 X10*3/uL (0.1-1.2); Monocytes Percent Auto 2.5 % (2-11); Neutrophils Absolute Auto 2.4 x10*3/uL (2.0-8.3); Neutrophils Percent Auto 17.4 % (45-73); Platelet Count 146 X10*3/uL (160-400); Red Blood Count 4.58 X10*6/uL (4.60-5.80); Red Cell Distribution Width 13.9 % (11.0-16.0); SCAN SMEAR FLAG 1; White Blood Count 13.7 X10*3/uL (4.8-10.8)
[2024-12-01 13:54] LABS: Estimated Average Glucose 169 mg/dL; Hemoglobin A1C 190.2645 umol/L; Hemoglobin A1c % 7.5 % (<6.0); Total Hemoglobin (HGBA1C) 3277.5305 umol/L
[2024-12-01 13:58] LABS: Lymphocytes Absolute Auto 10.9 X10*3/uL (1.2-4.9)
[2024-12-01 14:09] LABS: Creatinine Urine 157.18 mg/dL; Microalbum/Creatinine Ratio Ur 22.9 ug/mg cr (<30)
[2024-12-01 14:21] LABS: Alanine Aminotransferase 28 U/L (0-40); Albumin Level 4.1 g/dL (3.5-5.0); Alkaline Phosphatase 44 U/L (39-117); Anion Gap 8 (12-20); Aspartate Amino Transferase 25 U/L (5-37); Bilirubin Total 0.6 mg/dL (0.0-1.0); Blood Urea Nitrogen 15 mg/dL (9-16); Carbon Dioxide 26 mmol/L (22-29); Chloride 111 mmol/L (96-108); Cholesterol 112 mg/dL (<200); Estimated Glomerular Filt Rate > 60; Glucose Fasting 109 mg/dL (60-99); HDL Cholesterol 42 mg/dL (>40); LDL Cholesterol Calculated 53 mg/dL (<100); Potassium 4.3 mmol/L (3.3-5.1); Sodium 141 mmol/L (135-145); Total Protein 6.3 g/dL (6.5-8.0); Triglycerides 89 mg/dL (<150)
[2024-12-01 15:20] LABS: SLIDE REVIEW VERIFIED
== END 2024-12-01 09:22 | disposition home or self-care (01) ==
LOC: HO.HMGCLDS 09:21
PROVIDERS: PCP Internal Medicine; Visit Provider Internal Medicine
DX: C91.10 Chronic lymphocytic leukemia of B-cell type not having achieved remission (principal); E78.5 Hyperlipidemia, unspecified; I10 Essential (primary) hypertension; E11.9 Type 2 diabetes mellitus without complications
CPT/HCPCS: 36415; 80053; 80061; 82043; 82570; 83036; 85025

== ENCOUNTER 2024-12-08 10:34 | Outpatient (AMB) | payer MEDICARE, SELFPAY ==
--- NOTE | 2024-12-08 10:36 | MHC.PC.OV ---
Vital Signs 12/08/24 10:39 Height 6 ft 3 in Weight 221 lb BMI 27.6 BP 116/66 Blood Pressure Location Rt brachial Position Sitting Respiration 18 Pulse 58 Pulse Source Pulse Oximeter Temp 97.7 F Temp Source Oral Pulse Oximetry (%) 97 Oxygen Delivery Method Room Air Intake Visit Reasons: 3 month follow up Intake Note: Pt is here today for 3 months follow up Allergies atorvastatin [Lipitor] Adverse Reaction (Unknown, Verified 12/08/24 10:43) back pain Medication List - Last Reconciled 12/08/24 by Chata Curiel MD amlodipine 10 mg PO DAILY aspirin 81 mg PO DAILY blood sugar diagnostic (Stukent Verio test strips) As directed to test blood sugar twice a day finasteride 5 mg PO DAILY 90 days glipizide 20 mg (2 x 10 mg) PO BID lancets ([employer] Delica Plus Lancet) Test blood sugar twice per day lisinopril 20 mg PO DAILY metformin 1,000 mg PO BID metoprolol succinate ER 100 mg PO DAILY pen needle, diabetic (BD Ultra-Fine Mini Pen Needle) 1 QD rosuvastatin 20 mg PO DAILY Tobacco use date assessed: 12/08/24 Fall risk assessment: No Falls in past year Last assessed Fall Risk: 12/08/24 Dental Screening Dental Screen Date: 12/08/24 Did you have a dental visit in the last 12 months?: Yes Did you have a dental problem in the last 6 months where you did not have access to dental care?: No Was dental information given to patient?: Patient has dentist HPI 3 month follow up HPI Details Patient presents for the follow-up of type 2 diabetes hypertension hyperlipidemia. He did not try Mounjaro injection because of high co-payment. [facility] Medical History Zoster Cough Colonoscopy refused Ascending aorta enlargement Hypertension CLL (chronic lymphocytic leukemia) Hyperlipemia DM type 2 (diabetes mellitus, type 2) (Unknown) HTN (hypertension) (Unknown) Surgical History History of repair of right rotator cuff (Unknown) History of cholecystectomy (Unknown) Family History Father No problems noted. Mother Diabetes Social History Housing: House Alcohol intake: never Patient Tobacco Use Status: Former Tobacco user e-Cigarette/Vaping Use: Never Used service: No Current occupational status: retired Cognitive needs: No Hearing needs: Yes Vision needs: Yes Questionnaire PHQ-9 Over the last 2 weeks, how often have you been bothered by any of the following problems? 1. Little interest or pleasure in doing things: not at all 2. Feeling down, depressed, or hopeless: not at all 3. Trouble falling or staying asleep, or sleeping too much: not at all 4. Feeling tired or having little energy: not at all 5. Poor appetite or overeating: not at all 6. Feeling bad about yourself - or that you are a failure or have let yourself or your family down: not at all 7. Trouble concentrating on things, such as reading the newspaper or watching television: not at all 8. Moving or speaking so slowly that other people could have noticed. Or the opposite - being so fidgety or restless that you have been moving around a lot more than usual: not at all 9. Thoughts that you would be better off or of hurting yourself in some way: not at all Total score: 0 Depression Screening Interpretation: Negative Depression Screening Done: Yes 83316 - PHQ-9 Billing: Yes Source: Developed by Drs. Samson Gandara, Jolie Muir, Hamzah Gonzalez and colleagues, with an educational moisés from [employer]. Thrive Questionnaire Date Thrive assessed: 12/08/24 I am a: Patient What is your living situation today?: I have a steady place to live Within the past 12 months, did the food you bought not last and you didn't have the money to get more?: I choose not to answer this question Within the past 12 months, did you worry whether your food would run out before you got money to buy more?: I choose not to answer this question Do you have trouble paying for medicines?: No Do you have trouble getting transportation to medical appointments?: No Do you have trouble paying your heating and electricity bill?: No Do you have trouble taking care of your child, family member or friend?: No Do you have trouble with day-to-day activities such as bathing, preparing meals, shopping, managing finances, etc.?: No Are you currently unemployed and looking for a job?: I choose not to answer this question Are you interested in more education?: No Please select the resources that you would like help with: None Currently or been in a relationship where the following occur: I choose not to answer THRIVE Score: 0 AUDIT C Alcohol Use Questionnaire (AUDIT-C) 1. How often do you have a drink containing alcohol?: Never 3. How often do you have six or more drinks on one occasion?: Never Total Score: 0 ROSE-7 AMB Questionnaire ROSE-7 Date ROSE - 7 assessed: 12/08/24 Feeling nervous, anxious, or on edge: 0 = Not at all Not being able to stop or control worryin = Not at all Worrying too much about different things: 0 = Not at all Trouble relaxin = Not at all Being so restless that it is hard to sit still: 0 = Not at all Becoming easily annoyed or irritable: 0 = Not at all Feeling afraid as if something awful might happen: 0 = Not at all Total ROSE-7 score (0-4 normal; 5-9 mild; 10-14 moderate; 15-21 severe): 0 Source: Developed by Drs. Samson Gandara, Jolie Muir, Hamzah Gonzalez and colleagues, with an educational moisés from [employer]. ROSE-7 Assessment Billing ROSE-7 Assessment Tool: ROSE-7 Assessment 79492 Review of Systems Const All systems reviewed & are unremarkable except as noted in HPI and below Eyes Reports no additional complaints ENT Reports no additional complaints Card Reports no additional complaints Resp Reports no additional complaints GI Reports no additional complaints Reports no additional complaints Physical exam (Primary Care) Vital Signs: Last Vital Signs Temp 97.7 F 12/08/24 10:39 Pulse 58 12/08/24 10:39 Resp 18 12/08/24 10:39 BP 116/66 12/08/24 10:39 Pulse Ox 97 12/08/24 10:39 Oxygen Delivery Method Room Air 12/08/24 10:39 BMI result Body Mass Index 27.6 Tobacco/Smoking Status: Tobacco use Status Tobacco use date assessed 12/08/24 12/08/24 10:48 Patient Tobacco Use Status Former Tobacco user 12/08/24 10:36 e-Cigarette/Vaping Use Never Used 12/08/24 10:36 PHQ-9: PHQ-9 Score PHQ-9: Total score 0 12/08/24 10:48 Depression Screening Interpretation: Negative Thrive Assessment: Date of Thrive Assessment Date Thrive assessed 12/08/24 12/08/24 10:48 Currently or been in a relationship where the following occur: I choose not to answer Const General: no acute distress HENMT Face and sinus: Yes normal facial exam Eyes General: appearance normal, both eyes and all related structures Resp Effort & Inspection: normal respiratory effort Auscultation: clear to auscultation bilaterally Cardio Rhythm: regular rhythm Heart sounds: S1 normal heart sound present and S2 normal heart sound present GI Inspection: Yes normal to inspection Palpation (GI): Soft to palpation Percussion: Yes normal to percussion Auscultation: normal bowel sounds Immunizations pneumoc 20-trang conj-dip cr(PF) 0.5 mL IM syringe Performing Provider: Chata Curiel MD Performing Location: [facility] [place] [facility] Administered by: RICARDO Recio on 12/08/24 11:06 Dose Route Admin Location Dispensed Lot Number Expiration Date [facility] Vice President Safety 0.5 mL IM Left Deltoid 0.5 mL [id number] 12/08/24 9860-4535-46 [employer] VIS Given Date VIS Provided VIS Publication Date 12/08/24 Single Vaccine 21 Eligibility Eligibility Date Funding Source Not [facility] Eligible 12/08/24 Private Coding Level of Care Code Est Pt Level 4 (82533) Complex EM visit Add On G2211 Diagnoses HTN (hypertension) I10 DM type 2 (diabetes mellitus, type 2) E11.9 CLL (chronic lymphocytic leukemia) C91.10 BPH w urinary obs/LUTS N40.1; N13.8 Additional Codes ROSE-7 Assessment Billing - ROSE-7 Assessment Tool: ROSE-7 Assessment 27148 ([id number]) PHQ-9 - 75254 - PHQ-9 Billing: Yes ([id number]) Assessment & Plan Assessment & Plan (1) HTN (hypertension): Onset Date: Unknown Code(s): I10 - Essential (primary) hypertension Category: Medical Plan: cont meds (2) DM type 2 (diabetes mellitus, type 2): Onset Date: Unknown Comment: cont meds and ADA diet, insurance does not cover SGTP 2 inhibitor, patient does not want to pay for [employer] co-pay Code(s): E11.9 - Type 2 diabetes mellitus without complications Category: Medical Plan: A1C is 7.5, cont ADA diet and meds, regular exercise, weight loss discussed (3) CLL (chronic lymphocytic leukemia): Comment: f/u with hematology Dr. Asencio Code(s): C91.10 - Chronic lymphocytic leukemia of B-cell type not having achieved remission Category: Medical Plan: Follow-up with Hematology (4) BPH w urinary obs/LUTS: Comment: Established with Urology Code(s): N40.1 - Benign prostatic hyperplasia with lower urinary tract symptoms; N13.8 - Other obstructive and reflux uropathy Category: Medical Plan: Continue finasteride follow-up with Urology Orders: Orders Comprehensive [place]. Panel Fast 3 Months E11.9 - Type 2 diabetes mellitus without complications, I10 - Essential (primary) hypertension Hemoglobin A1c 3 Months E11.9 - Type 2 diabetes mellitus without complications, I10 - Essential (primary) hypertension Microalbumin, Random (w Creat) 3 Months E11.9 - Type 2 diabetes mellitus without complications, I10 - Essential (primary) hypertension Complete Blood Count Auto Diff 3 Months E11.9 - Type 2 diabetes mellitus without complications, I10 - Essential (primary) hypertension
[2024-12-08 10:39] VITALS: BP 116/66; PULSE 58; RESP 18; TEMP 36.5; O2SAT 97; BMI 27.6
--- OUTSIDE RECORDS SUMMARY | 2024-12-08 12:28 | XMS_ITS | Clinical Summary ---
Author Organization [facility] Address [address] [place] [address] Phone Care Team Providers Care Computer Forensics Investigator Name Role Phone Chata Curiel MD Primary Care Provider [phone] Allergies No known active allergies Medications amLODIPine (NORVASC) 10 mg tablet Take 1 tablet (10 mg total) by mouth daily. Active aspirin 81 mg EC tablet Take 1 tablet (81 mg total) by mouth daily. Active glipiZIDE (GLUCOTROL) 10 mg tablet Take 1 tablet (10 mg total) by mouth 2 (two) times a day before breakfast and dinner. Active lisinopriL (PRINIVIL,ZEST RIL) 10 mg tablet Take 1 tablet (10 mg total) by mouth daily. Active metFORMIN (GLUCOPHAGE) 1,000 mg tablet Take 1 tablet (1,000 mg total) by mouth 2 (two) times a day with meals. Active metoprolol succinate (TOPROL-XL) 100 mg 24 hr tablet Take by mouth daily. Active rosuvastatin (CRESTOR) 20 mg tablet Take 1 tablet (20 mg total) by mouth 1 (one) time each day. 10/05/19 25 Active finasteride (PROSCAR) 5 mg tablet Take 1 tablet (5 mg total) by mouth 1 (one) time each day. Active pravastatin (PRAVACHOL) 40 mg tablet Take 1 tablet (40 mg total) by mouth daily. 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) from Last 3 Months Family History Medical History Relation Name Comments Diabetes Brother Diabetes Father Diabetes Mother Diabetes Sister Relation Name Status Comments Brother Father Mother Sister Social History Tobacco Use Types Packs/Day Years Used Date Smoking Tobacco: Former Smokeless Tobacco: Never Tobacco Cessation:Counseling Given: Not Answered Alcohol Use Standard Drinks/Week Comments Yes 0 (1 standard drink = 0.6 oz pur e alcohol) Sex and Gender Information Value Date Recorded Sex Assigned at Not on file Legal Sex Male 7:45 PM EST Gender Identity Not on file Sexual Orientation Not on file Obstetrics History Last Filed Vital Signs Vital Sign Reading Time Taken Comments Blood Pressure 133/72 12/07/2024 10:28 AM EDT Pulse 54 12/07/2024 10:28 AM EDT Temperature 36.4 ??C (97.5 ??F) 12/07/2024 10:28 AM E DT Respiratory Rate - - Oxygen Saturation 99% 12/07/2024 10:28 AM EDT Inhaled Oxygen Concentration - - Weight 101 kg (223 lb) 12/07/2024 10:28 AM EDT Height 190.5 cm (6' 3 ) 2023 8:58 AM EDT Body Mass Index 27.87 2023 8:58 AM EDT Plan of Treatment Upcoming Encounters Date Type Department Care Team (Late st Contact Info) Description 11/09/2025 10:30 AM EDT Office Visit [facility] Hematology Oncology [address] [place] [phone] Kendall Asencio MD [address] [place] [address] Health Maintenance Due Date Last Done Comments [...] Routine 11/30/2024 8:14 AM EDT 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, [facility] V28) CBC WITH AUTO DIFFERENTIAL Routine 11/30/2024 8:14 AM EDT 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, [facility] V28) CBC AND DIFFERENTIAL Routine 11/30/2024 8:14 AM EDT 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, [facility] V28) BETA 2 MICROGLOBULIN, SERUM Routine 11/30/2024 8:14 AM EDT 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, [facility] V28) LACTATE DEHYDROGENASE Routine 11/30/2024 8:14 AM EDT 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, [facility] V28) from Last 3 Months Results * (ABNORMAL) Manual differential (11/30/2024 8:14 AM EDT) Neutrophils % 25.0 % LAB HEMETOLOGY METHOD 11/30/2024 10:49 AM [facility] Lymphocytes % 71.0 % LAB HEMETOLOGY METHOD 11/30/2024 10:49 AM [facility] Monocytes % 5.0 % LAB HEMETOLOGY METHOD 11/30/2024 10:49 AM [facility] Eosinophils % 0.0 % LAB HEMETOLOGY METHOD 11/30/2024 10:49 AM [facility] Basophils % 0.0 % LAB HEMETOLOGY METHOD 11/30/2024 10:49 AM [facility] Neutrophils Absolute Manual 3.40 1.50 - 7.00 K/mcL LAB HEMETOLOGY METHOD 11/30/2024 10:49 AM [facility] Lymphocytes Absolute 9.66(H) 1.00 - 5.00 K/mcL LAB HEMETOLOGY METHOD 11/30/2024 10:49 AM [facility] Monocytes Absolute Manual 0.68 0.20 - 1.00 K/mcL LAB HEMETOLOGY METHOD 11/30/2024 10:49 AM [facility] Eosinophils Absolute Manual 0.00 0.00 - 0.50 K/mcL LAB HEMETOLOGY METHOD 11/30/2024 10:49 AM [facility] Basophils Absolute Manual 0.00 0.00 - 0.20 K/mcL LAB HEMETOLOGY METHOD 11/30/2024 10:49 AM [facility] Rbc Morphology Present( A) Consistent with indices, Normal for LAB HEMETOLOGY METHOD 11/30/2024 10:49 AM EDT [facility] Comment:RBC: Morphology agre es with CBC Platelet Morphology - WAM See Note(A) Normal LAB HEMETOLOGY METHOD 11/30/2024 10:49 AM EDT [facility] Comment:PLT: Normal Ovalocytes Present 5 - 10%(A) (none) LAB HEMETOLOGY METHOD 11/30/2024 10:49 AM EDT [facility] Blood Venous blood specimen / Unknown Venipuncture / Unknown 11/30/2024 8:14 AM EDT 11/30/2024 10:05 AM EDT Kendall Asencio MD LAB BLOOD ORDERABLES Final R esult [facility] [address] [place] [address], * (ABNORMAL) CBC auto differential (11/30/2024 8:14 AM EDT) WBC 13.6(H) 4.8 - 10.8 K/mcL LAB HEMETOLOGY METHOD 11/30/2024 10:49 AM [facility] RBC 4.50 4.50 - 5.50 M/mcL LAB HEMETOLOGY METHOD 11/30/2024 10:49 AM [facility] Hemoglobin 12.1(L) 13.5 - 17.5 g/dL LAB HEMETOLOGY METHOD 11/30/2024 10:49 AM T [facility] Hematocrit 39.0(L) 42.0 - 54.0 % LAB HEMETOLOGY METHOD 11/30/2024 10:49 AM [facility] MCV 87.6 79.0 - 98.0 FL LAB HEMETOLOGY METHOD 11/30/2024 10:49 AM [facility] MCH 27.2 27.0 - 32.0 pcg LAB HEMETOLOGY METHOD 11/30/2024 10:49 AM EDT [facility] MCHC 31.0(L) 32.0 - 37.0 g/dL LAB HEMETOLOGY METHOD 11/30/2024 10:49 AM EDT [facility] RDW 13.8 11.0 - 15.0 % LAB HEMETOLOGY METHOD 11/30/2024 10:49 AM EDT [facility] Platelets 142 130 - 400 K/mcL LAB HEMETOLOGY METHOD 11/30/2024 10:49 AM EDT [facility] MPV 11.4(H) 7.0 - 11.0 FL LAB HEMETOLOGY METHOD 11/30/2024 10:49 AM EDT [facility] NRBC 0.0 <1.0 % LAB HEMETOLOGY METHOD 11/30/2024 10:49 AM EDT [facility] NRBC Absolute 0.00 <0.10 K/mcL LAB HEMETOLOGY METHOD 11/30/2024 10:49 AM EDT [facility] Blood Venous blood specimen / Unknown Venipuncture / Unknown 11/30/2024 8:14 AM EDT 11/30/2024 10:05 AM EDT [facility] Vicenta Asencio MD LAB BLOOD ORDERABLES Final R esult [facility] [address] [place] [address], * Lactate dehydrogenase (11/30/2024 8:14 AM EDT) LDH 127 120 - 246 unit/L LAB CHEMISTRY METHOD 11/30/2024 10:39 AM EDT [facility] Blood Venous blood specimen / Unknown Venipuncture / Unknown 11/30/2024 8:14 AM EDT 11/30/2024 10:05 AM EDT Kendall Asencio MD LAB BLOOD ORDERABLES Final R esult [facility] [address] [place] [address], [place] [phone] * (ABNORMAL) Beta 2 microglobulin, serum (11/30/2024 8:14 AM EDT) Beta-2 Microglobulin 2.3(H) 0.7 - 1.8 mg/L LAB CHEMISTRY METHOD 11/30/2024 10:39 AM EDT [facility] Blood Venous blood specimen / Unknown Venipuncture / Unknown 11/30/2024 8:14 AM EDT 11/30/2024 10:05 AM EDT Kendall Asencio MD LAB BLOOD ORDERABLES Final R esult Performing Organization Address City/[facility]/ZIP Co de Phone Number [facility] [address] [place] [address], [place] [phone] from Last 3 Months Insurance [employer] MEDICARE Care Teams Computer Forensics Investigator Relationship Specialty Start Date End Date Chata Curiel MD [address] [place] [phone] PCP - General Film Crew Member 03/09/20
--- OUTSIDE RECORDS SUMMARY | 2024-12-08 12:28 | XMS_ITS | Clinical Summary ---
Author Organization [facility] Address [address] [place] [address] Care Team Providers Care Dry Starch Supervisor Name Role Phone Chata Curiel MD Primary Care Provider [phone] Allergies No known active allergies Medications Medication [...] age to complete this topic Care Teams Dry Starch Supervisor Relationship Specialty Start Date End Date Chata Curiel MD [address] [facility] [place] [address] PCP - General Administrative Support Technician 03/09/20
--- OUTSIDE RECORDS SUMMARY | 2024-12-08 12:28 | XMS_ITS | Encounter Summary ---
Author Organization [facility] Address [address] [place] [address] Care Team Providers Care Medical Administrator Name Role Phone Chata Curiel MD Primary Care Provider [phone] Reason for Visit * Reason Comments Follow-up Encounter Details Date Type Department Care Team (Late st Contact Info) Description 12/07/2024 10:30 AM EDT Office Visit [facility] Hematology Oncology [address] [place] [phone] Kendall Asencio MD [address] [place] [address] Small lymphocytic lymphoma (CMS/HCC V24, CMS/HCC V28) (Primary Dx) Social History Tobacco Use Types Packs/Day Years [...] on file Sexual Orientation Not on file documented as of this encounter Last Filed Vital Signs Vital Sign Reading Time Taken Comments Blood Pressure 133/72 12/07/2024 10:28 AM EDT Pulse 54 12/07/2024 10:28 AM EDT Temperature 36.4 ??C (97.5 ??F) 12/07/2024 10:28 AM E DT Respiratory Rate - - Oxygen Saturation 99% 12/07/2024 10:28 AM EDT Inhaled Oxygen Concentration - - Weight 101 kg (223 lb) 12/07/2024 10:28 AM EDT Height - - Body Mass Index 27.87 2023 8:58 AM EDT documented in this encounter Progress Notes * Kendall Asencio MD - 12/07/2024 10:30 AM EDT ONC CANCER FOLLOW UP CHIEF COMPLAINT: Follow-up IDENTIFIER:Edmond Mata is a 74 y.o. male. 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 Oncology History Overview Note Patient while going for cardiology work-up to assess for aortic aneurysm, on CT scan (done on 02/17/2020), incidentally found to have extensive adenopathy in chest abdomen pelvis Patient is scheduled for lymph node sampling, had right axillary lymph node biopsy on 03/03/2020 at [facility], pathology results showed small lymphocytic lymphoma/CLL Patient saw me on 03/17/2020, on my exam there is some cervical palpable adenopathy, without any significant splenomegaly, patient white blood cell count were 16,000, hemoglobin 11.5 g and platelet count 1 69,000 as well as normal LDH and beta-2 microglobulin Patient was basically asymptomatic on follow-up on March 31, 2020 so decision made to check for peripheral blood cytogenetics to assess his long-term prognosis In May 2020 patient underwent peripheral blood cytogenetic/FISH studies for prognostic reasons,patient has normal chromosomal analysis which is indicative of neutral prognosis Patient blood count and patient remained very stable in August 2020 so decision made to continue observation with less frequent interval Patient blood count remained stable again in May 2022, WBC 17,000 with 78% lymphocyte, normal LDH and beta-2 microglobulin (148 LDH, beta-2 microglobulin 2.4), patient continued to clinically very well Patient labs as well as clinically patient doing very well in early 2024, did not have any indication for therapeutic intervention PAST MEDICAL HISTORY: Type 2 diabetes Hypertension Dyslipidemia Coronary artery disease/[place]/coronary stent placed in 2007 History of nicotine addiction Small lymphocytic lymphoma diagnosed in 2019 SOCIAL HISTORY: He quit smoking more than 25 years ago He drinks occasionally/socially He is still working, 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 He is , lives with his FAMILY HISTORY: Family History Problem Relation Name Age of Onset Diabetes Mother Diabetes Father Diabetes Sister Diabetes Brother Current Outpatient Medications: amLODIPine (NORVASC) 10 mg tablet, Take 1 tablet (10 mg total) by mouth daily., Disp: , Rfl: aspirin 81 mg EC tablet, Take 1 tablet (81 mg total) by mouth daily., Disp: , Rfl: finasteride (PROSCAR) 5 mg tablet, Take 1 tablet (5 mg total) by mouth 1 (one) time each day., Disp: , Rfl: glipiZIDE (GLUCOTROL) 10 mg tablet, Take 1 tablet (10 mg total) by mouth 2 (two) times a day beforebreakfast and dinner., Disp: , Rfl: lisinopriL (PRINIVIL,ZESTRIL) 10 mg tablet, Take 1 tablet (10 mg total) by mouth daily., Disp: , Rfl: metFORMIN (GLUCOPHAGE) 1,000 mg tablet, Take 1 tablet (1,000 mg total) by mouth 2 (two) times a daywith meals., Disp: , Rfl: metoprolol succinate (TOPROL-XL) 100 mg 24 hr tablet, Take by mouth daily., Disp: , Rfl: rosuvastatin (CRESTOR) 20 mg tablet, Take 1 tablet (20 mg total) by mouth 1 (one) time each day., Disp: , Rfl: No Known Allergies PHYSICAL EXAM: Visit Vitals BP 133/72 (BP Location: Left arm, Patient Position: Sitting, BP Cuff Size: Adult) Pulse 54 Temp 36.4 ??C (97.5 ??F) (Temporal) Wt 101 kg (223 lb) SpO2 99% BMI 27.87 kg/m?? Smoking Status Former BSA 2.3 m?? ECOG 0-1 APPEARANCE: Alert and oriented in no acute distress EYES: nonicteric sclera pink conjunctiva ORAL CAVITY: No erythema or exudates NECK: There is some fullness in left upper neck, no other grossly enlarged lymph node HEART: normal S1 and S2 LUNG: clear to auscultation bilaterally LYMPH NODES: No palpable superficial adenopathy ABDOMEN: soft, nontender and no significant organomegaly appreciated EXTREMITIES: No significant edema LABS: LDH 127 Beta-2 microglobulin 2.3 WBC 13.6, hemoglobin 12.1 g, hematocrit 39% and platelet count 142 More than 70% lymphocytes IMPRESSION: 1. Small lymphocytic lymphoma (CMS/HCC V24, CMS/HCC V28) 74-year-old man who incidentally diagnosed with a small lymphocytic lymphoma approximately 5 years ago, patient has no indication for therapeutic intervention, my exam did not show any worsening adenopathy or splenomegaly as well as blood count has been very stable, discussed with the patient in detail about the small lymphocytic lymphoma and indication for treatment. PLAN: Decision made to check labs prior to next visit in about a year but earlier if he develop any unusual symptoms Kendall Asencio MD documented in this encounter Plan of Treatment Upcoming Encounters Date Type Department Care Team (Late st Contact Info) Description 11/09/2025 10:30 AM EDT Office Visit [facility] Hematology Oncology [address] [place] [address] Kendall Asencio MD [address] [place] [address] Scheduled Orders Name Type Priority Associated Diagnoses Orde r Schedule CBC and differential Lab Routine Small lymphocytic lymphoma ([facility] V24, [facility]/HCC V28) Expected: 06/08/2025, Expires: 12/07/2025 Beta 2 microglobulin, serum Lab Routine Small lymphocytic lymphoma ([facility]/HCC V24, [facility]/HCC V28) Expected: 06/08/2025, Expires: 12/07/2025 Lactate dehydrogenase Lab Routine Small lymphocytic lymphoma ([facility]/HCC V24, CMS/HCC V28) Expected: 06/08/2025, Expires: 12/07/2025 documented as of this encounter Visit Diagnoses Diagnosis Small lymphocytic lymphoma (CMS/HCC V24, CMS/HCC V28)- Primary documented in this encounter Discontinued Medications Medication Sig Discontinue Reason Start Date End Da te pravastatin (PRAVACHOL) 40 mg tablet Take 1 tablet (40 mg total) by mouth daily. 12/07/2024 documented as of this encounter Historical Medications * This list may reflect changes made after this encounter. finasteride (PROSCAR) 5 mg tablet Take 1 tablet (5 mg total) by mouth 1 (one) time each day. rosuvastatin (CRESTOR) 20 mg tablet Take 1 tablet (20 mg total) by mouth 1 (one) time each day. 10/05/2024 added in this encounter Care Teams Medical Administrator Relationship Specialty Start Date End Date Chata Curiel MD [address] [place] [address] PCP - General Food Vendor 03/09/20 documented as of this encounter
== END 2024-12-08 11:08 | disposition home or self-care (01) ==
LOC: HO.HMCC 10:35
PROVIDERS: PCP Internal Medicine; Visit Provider Internal Medicine
DX: I10 Essential (primary) hypertension (principal); E11.9 Type 2 diabetes mellitus without complications; C91.10 Chronic lymphocytic leukemia of B-cell type not having achieved remission; N40.1 Benign prostatic hyperplasia with lower urinary tract symptoms; N13.8 Other obstructive and reflux uropathy; Z23 Encounter for immunization

== ENCOUNTER → 2024-12-08 10:34 | Outpatient (BNVA) | payer MEDICARE, SELFPAY | PROVIDERS: PCP Internal Medicine; Visit Provider Internal Medicine | DX: I10 Essential (primary) hypertension (principal); Z23 Encounter for immunization; E11.9 Type 2 diabetes mellitus without complications; C91.10 Chronic lymphocytic leukemia of B-cell type not having achieved remission; N40.1 Benign prostatic hyperplasia with lower urinary tract symptoms; N13.8 Other obstructive and reflux uropathy; Z79.899 Other long term (current) drug therapy | CPT/HCPCS: 90471; 90677; 96127; 99212 ==

== ENCOUNTER 2025-03-08 09:16 | Outpatient (REF) | payer MEDICARE, SELFPAY ==
--- OUTSIDE RECORDS SUMMARY | 2025-03-08 09:45 | XMS_ITS | Clinical Summary ---
Author Organization [facility] Address [address] [place] [address] Phone Care Team Providers Care Supervisor Gelatin Plant Name Role Phone Chata Curiel MD Primary Care Provider [phone] Allergies No known active allergies Medications amLODIPine [...] mouth 1 (one) time each day. Active finasteride (PROSCAR) 5 mg tablet Take 1 tablet (5 mg total) by mouth 1 (one) time each day. Active Encounters Date Type Department Care Team Description 12/07/2024 10:30 AM EDT Office Visit [facility] Hematology Oncology [address] [place] [address] Kendall Asencio MD Small lymphocytic lymphoma (CMS/HCC V24, CMS/HCC V28) (Primary Dx) from Last 3 Months [...] 54 12/07/2024 10:28 AM EDT Temperature 36.4 C (97.5 F) 12/07/2024 10:28 AM EDT Respiratory Rate - - Oxygen [...] Description 11/09/2025 10:30 AM EDT Office Visit [facility] Hematology Oncology [address] [place] [phone] Kendall Asencio MD [address] [place] [address] Health Maintenance Due Date Last Done Comments [...] of Health Screening 08/02/2022 Influenza Vaccine (#1) 2025 RSV Immunization Adult Patients (1 - [...] topic Insurance [employer] MEDICARE Care Teams Supervisor Gelatin Plant Relationship Specialty Start Date End Date Chata Curiel MD PCP - General Transportation Assistant 03/09/20
--- OUTSIDE RECORDS SUMMARY | 2025-03-08 09:45 | XMS_ITS | Clinical Summary ---
Author Organization [facility] Address [address] [place] [address] Care Team Providers Care Rotor Winder Name Role Phone Chata Curiel MD Primary Care Provider [phone] Allergies No known active allergies Medications Medication [...] 63 04/13/2024 9:01 AM EDT Temperature 36.7 C (98 F) 04/13/2024 9:01 AM EDT Respiratory Rate - [...] Fall Risk Assessment 2016 Influenza Vaccine (#1) 2025 RSV Adult > 60+ Yrs or Pregn ant (1 - 1-dose 75+ series) 2026 Hepatitis B Vaccines Aged Out No long er eligible based on patient's age to complete this topic RSV Ped < 20 months Aged Out No longe r eligible based on patient's age to complete this topic Care Teams Rotor Winder Relationship Specialty Start Date End Date Chata Curiel MD [address] [place] [address] PCP - General Care Director Rn 03/09/20
[2025-03-08 10:23] LABS: Hemoglobin A1C 201.0668 umol/L; Total Hemoglobin (HGBA1C) 3365.1015 umol/L
[2025-03-08 10:39] LABS: Hematocrit 39.7 % (42.0-52.0); Hemoglobin 12.6 g/dl (14.0-18.0); Imm Gran Abs Auto 0.02 X10*3/uL (0.00-0.03); Imm Gran Pct Auto 0.1 % (0.0-0.4); MANUAL DIFF FLAG SCAN; Mean Corpuscular HGB Conc 31.7 g/dl (31.0-36.0); Mean Corpuscular Hemoglobin 26.8 pg (27.0-33.0); Mean Corpuscular Volume 84.3 fL (80.0-98.0); NRBC Abs Auto 0.000 X10*3/uL (0.0-0.012); NRBC Pct Auto 0.0 /100WBC (0.0-0.2); Platelet Count 155 X10*3/uL (160-400); Red Blood Count 4.71 X10*6/uL (4.60-5.80); SCAN SMEAR FLAG 1; White Blood Count 13.6 X10*3/uL (4.8-10.8)
[2025-03-08 10:42] LABS: Lymphocytes Absolute Auto 10.3 X10*3/uL (1.2-4.9)
[2025-03-08 11:03] LABS: Alanine Aminotransferase 33 U/L (0-40); Albumin Level 4.4 g/dL (3.5-5.0); Alkaline Phosphatase 47 U/L (39-117); Anion Gap 12 (12-20); Aspartate Amino Transferase 22 U/L (5-37); Blood Urea Nitrogen 17 mg/dL (9-16); Calcium 9.1 mg/dL (8.4-10.2); Carbon Dioxide 26 mmol/L (22-29); Chloride 109 mmol/L (96-108); Estimated Glomerular Filt Rate > 60; Potassium 4.0 mmol/L (3.3-5.1); Sodium 143 mmol/L (135-145); Total Protein 6.7 g/dL (6.5-8.0)
[2025-03-08 11:13] LABS: Microalbum/Creatinine Ratio Ur 37.5 ug/mg cr (<30)
== END 2025-03-08 09:17 | disposition home or self-care (01) ==
LOC: HO.HMGCLDS 09:16
PROVIDERS: PCP Internal Medicine; Visit Provider Internal Medicine
DX: I10 Essential (primary) hypertension (principal); E11.9 Type 2 diabetes mellitus without complications
CPT/HCPCS: 36415; 80053; 82043; 82570; 83036; 85025

== ENCOUNTER 2025-03-14 09:22 | Outpatient (AMB) | payer MEDICARE, SELFPAY ==
[2025-03-14 09:24] VITALS: BP 104/60; PULSE 64; RESP 18; TEMP 36.4; O2SAT 95; BMI 27.6
--- NOTE | 2025-03-14 09:24 | A.OFFPC_ITS ---
Vital Signs 03/14/25 09:24 Height 6 ft 3 in Weight 221 lb BMI 27.6 BP 104/60 Blood Pressure Location Rt brachial Position Sitting Respiration 18 Pulse 64 Pulse Source Pulse Oximeter Temp 97.6 F Temp Source Oral Pulse Oximetry (%) 95 Oxygen Delivery Method Room Air Intake Visit Reasons: 3 months f/up Intake Note: Pt is here today for 3 months follow up visit. Allergies atorvastatin (Lipitor) Adverse Reaction (Unknown, Verified 03/14/25 09:27) back pain Tobacco use date assessed: 03/14/25 Fall risk assessment: No Falls in past year Last assessed Fall Risk: 03/14/25 Dental Screening Dental Screen Date: 03/14/25 Did you have a dental visit in the last 12 months?: Yes Did you have a dental problem in the last 6 months where you did not have access to dental care?: No Was dental information given to patient?: Patient has dentist HPI 3 months f/up HPI Details Patient presents for the follow-up on hypertension hyperlipidemia type 2 diabetes. He is established with Hematology for CLL [facility] Medical History (Updated 03/14/25 @ 10:09 by Chata Curiel MD) Zoster Colonoscopy refused Ascending aorta enlargement Hypertension CLL (chronic lymphocytic leukemia) Hyperlipemia DM type 2 (diabetes mellitus, type 2) (Unknown) HTN (hypertension) (Unknown) Surgical History History of repair of right rotator cuff (Unknown) History of cholecystectomy (Unknown) Family History Father No problems noted. Mother Diabetes Social History Housing: House Alcohol intake: never Patient Tobacco Use Status: Former Tobacco user e-Cigarette/Vaping Use: Never Used service: No Current occupational status: retired Cognitive needs: No Hearing needs: Yes Vision needs: Yes Questionnaire Thrive Questionnaire Date Thrive assessed: 03/14/25 I am a: Patient What is your living situation today?: I choose not to answer this question Within the past 12 months, did the food you bought not last and you didn't have the money to get more?: I choose not to answer this question Within the past 12 months, did you worry whether your food would run out before you got money to buy more?: I choose not to answer this question Do you have trouble paying for medicines?: I choose not to answer this question Do you have trouble getting transportation to medical appointments?: I choose not to answer this question Do you have trouble paying your heating and electricity bill?: I choose not to answer this question Do you have trouble taking care of your child, family member or friend?: I choose not to answer this question Do you have trouble with day-to-day activities such as bathing, preparing meals, shopping, managing finances, etc.?: I choose not to answer this question Are you currently unemployed and looking for a job?: I choose not to answer this question Are you interested in more education?: I choose not to answer this question Please select the resources that you would like help with: None Currently or been in a relationship where the following occur: I choose not to answer THRIVE Score: 0 AUDIT C Alcohol Use Questionnaire (AUDIT-C) 1. How often do you have a drink containing alcohol?: Never 3. How often do you have six or more drinks on one occasion?: Never Total Score: 0 ROSE-7 AMB Questionnaire ROSE-7 Date ROSE - 7 assessed: 12/08/24 Source: Developed by Drs. Samson Gandara, Jolie Muir, Hamzah Gonzalez and colleagues, with an educational moisés from [employer]. Review of Systems Const All systems reviewed & are unremarkable except as noted in HPI and below Eyes Reports no additional complaints ENT Reports no additional complaints Card Reports no additional complaints Resp Reports no additional complaints GI Reports no additional complaints Reports no additional complaints Physical exam (Primary Care) Vital Signs: Last Vital Signs Temp 97.6 F 03/14/25 09:24 Pulse 64 03/14/25 09:24 Resp 18 03/14/25 09:24 BP 104/60 03/14/25 09:24 Pulse Ox 95 03/14/25 09:24 Oxygen Delivery Method Room Air 03/14/25 09:24 BMI result Body Mass Index 27.6 Tobacco/Smoking Status: Tobacco use Status Tobacco use date assessed 03/14/25 03/14/25 09:30 Patient Tobacco Use Status Former Tobacco user 03/14/25 09:30 e-Cigarette/Vaping Use Never Used 03/14/25 09:30 Thrive Assessment: Date of Thrive Assessment Date Thrive assessed 03/14/25 03/14/25 09:33 Currently or been in a relationship where the following occur: I choose not to answer Const General: no acute distress HENMT Head: Yes normal to inspection Throat: Yes posterior oropharynx normal Neck Neck: Yes no lymphadenopathy and Yes supple Resp Effort & Inspection: normal respiratory effort Auscultation: clear to auscultation bilaterally Cardio Rhythm: regular rhythm Heart sounds: S1 normal heart sound present and S2 normal heart sound present GI Inspection: Yes normal to inspection Palpation (GI): Soft to palpation Percussion: Yes normal to percussion Extrem Other: Diabetic foot exam skin is intact monofilament and vibration sensation intact bilaterally General: Yes no clubbing, cyanosis or edema Coding Level of Care Code Est Pt Level 4 (37458) Diagnoses HTN (hypertension) I10 Hyperlipemia E78.5 DM type 2 (diabetes mellitus, type 2) E11.9 CLL (chronic lymphocytic leukemia) C91.10 Assessment & Plan Assessment & Plan (1) HTN (hypertension): Onset Date: Unknown Code(s): I10 - Essential (primary) hypertension Category: Medical Plan: Continue current medications (2) Hyperlipemia: Code(s): E78.5 - Hyperlipidemia, unspecified Category: Medical Plan: Continue statin (3) DM type 2 (diabetes mellitus, type 2): Onset Date: Unknown Comment: cont meds and ADA diet, insurance does not cover SGTP 2 inhibitor, patient does not want to pay for Therapeutic Monitoring Services-pay Code(s): E11.9 - Type 2 diabetes mellitus without complications Category: Medical Plan: A1c is 7.6, ADA diet regular physical activity discussed with the patient Q continue current medications. Patient can not afford SGTP 2 inhibitor (4) CLL (chronic lymphocytic leukemia): Comment: f/u with hematology Dr. Asencio Code(s): C91.10 - Chronic lymphocytic leukemia of B-cell type not having achieved remission Category: Medical Plan: Follow-up with Hematology Orders: Orders Hemoglobin A1c 5 Months C91.10 - Chronic lymphocytic leukemia of B-cell type not having achieved remission, E11.9 - Type 2 diabetes mellitus without complications, E78.5 - Hyperlipidemia, unspecified, I10 - Essential (primary) hypertension Lipid Panel 5 Months E11.9 - Type 2 diabetes mellitus without complications, E78.5 - Hyperlipidemia, unspecified, I10 - Essential (primary) hypertension Complete Blood Count Auto Diff 5 Months E11.9 - Type 2 diabetes mellitus without complications, E78.5 - Hyperlipidemia, unspecified, I10 - Essential (primary) hypertension Comprehensive [place]. Panel Fast 5 Months C91.10 - Chronic lymphocytic leukemia of B-cell type not having achieved remission, E11.9 - Type 2 diabetes mellitus without complications, E78.5 - Hyperlipidemia, unspecified, I10 - Essential (primary) hypertension Microalbumin, Random (w Creat) 5 Months E11.9 - Type 2 diabetes mellitus without complications, E78.5 - Hyperlipidemia, unspecified, I10 - Essential (primary) hypertension Medications: Refilled metformin 1,000 mg PO BID 180 tabs 3RF rosuvastatin 20 mg PO DAILY 90 tabs 3RF metoprolol succinate ER 100 mg PO DAILY 90 tabs 3RF amlodipine 10 mg PO DAILY 90 tabs 3RF
--- OUTSIDE RECORDS SUMMARY | 2025-03-14 09:50 | XMS_ITS | Clinical Summary ---
Author Organization [facility] Address [address] [place] [address] Phone Care Team Providers Care Core Manager Name Role Phone Chata Curiel MD Primary Care Provider [phone] Allergies No known active allergies Medications amLODIPine [...] by mouth 1 (one) time each day. 5 Active finasteride (PROSCAR) 5 mg tablet Take 1 tablet (5 mg total) by mouth 1 (one) time each day. Active Family History Medical History Relation Name [...] Description 11/09/2025 10:30 AM EDT Office Visit [facility] Hematology Oncology [address] [place] [phone] Kendall Asencio MD [address] [place] [address] Health Maintenance Due Date Last Done Comments DTaP,Tdap,and Td Vaccines (1 - Tdap) 1970 Pneumococcal Vaccine: 50+ Years (1 of 2 - PCV) 1970 Zoster Vaccines (1 of 2) 1970 COVID-19 Vaccine (3 - Modern a risk series) 02/01/2021 01/04/2021, 12/07/2020 Abdominal Aortic Aneurysm (AAA) Screen 08/02/2022 Cholesterol Screening (Lipid Panel) 08/02/2022 Colorectal Cancer Screening: Colonoscopy 08/02/2022 Falls Risk Assessment 08/02/2022 Hepatitis C Screening 08/02/2022 Medicare Annual Wellness Visit 08/02/2022 Social Influencers of Health Screening 08/02/2022 Depression Screening 08/25/2024 Influenza Vaccine (#1) 2025 RSV Immunization Adult [...] topic Insurance [employer] MEDICARE Care Teams Core Manager Relationship Specialty Start Date End Date Chata Curiel MD PCP - General City Carrier Assistant 03/09/20
--- OUTSIDE RECORDS SUMMARY | 2025-03-14 09:50 | XMS_ITS | Clinical Summary ---
Author Organization [facility] Address [address] [place] [address] Care Team Providers Care Field Marketing Specialist Name Role Phone Chata Curiel MD Primary Care Provider Allergies No known active allergies Medications Medication [...] age to complete this topic Care Teams Field Marketing Specialist Relationship Specialty Start Date End Date Chata Curiel MD [address] [place] [address] PCP - General Reconciler 03/09/20
== END 2025-03-14 10:18 | disposition home or self-care (01) ==
LOC: HO.HMCC 09:23
PROVIDERS: PCP Internal Medicine; Visit Provider Internal Medicine
DX: I10 Essential (primary) hypertension (principal); E78.5 Hyperlipidemia, unspecified; E11.9 Type 2 diabetes mellitus without complications; C91.10 Chronic lymphocytic leukemia of B-cell type not having achieved remission

== ENCOUNTER → 2025-03-14 09:22 | Outpatient (BNVA) | payer MEDICARE, SELFPAY | PROVIDERS: PCP Internal Medicine; Visit Provider Internal Medicine | DX: I10 Essential (primary) hypertension (principal); E78.5 Hyperlipidemia, unspecified; E11.9 Type 2 diabetes mellitus without complications; C91.10 Chronic lymphocytic leukemia of B-cell type not having achieved remission | CPT/HCPCS: 99212 ==

== ENCOUNTER 2025-04-12 07:12 | Outpatient (REF) | payer MEDICARE, SELFPAY ==
--- OUTSIDE RECORDS SUMMARY | 2025-04-12 07:14 | XMS_ITS | Clinical Summary ---
Author Organization [facility] Address [address] [place] [address] Phone Care Team Providers Care Equipment Monitor Phototypesetting Name Role Phone Chata Curiel MD Primary Care Provider [phone] Allergies No known active allergies Medications amLODIPine [...] Description 11/09/2025 10:30 AM EDT Office Visit [facility] Hematology Oncology [address] [place] [phone] Kendall Asencio MD [address] [place] [address] Health Maintenance Due Date Last Done Comments [...] topic Insurance [employer] MEDICARE Care Teams Equipment Monitor Phototypesetting Relationship Specialty Start Date End Date Chata Curiel MD PCP - General Melting Supervisor 03/09/20
--- OUTSIDE RECORDS SUMMARY | 2025-04-12 07:14 | XMS_ITS | Clinical Summary ---
Author Organization [facility] Address [address] [place] [address] Care Team Providers Care Knockdown Worker Name Role Phone Chata Curiel MD Primary Care Provider [phone] Allergies No known active allergies Medications Medication [...] age to complete this topic Care Teams Knockdown Worker Relationship Specialty Start Date End Date Chata Curiel MD [address] [place] [address] PCP - General Collision Repair Technician 03/09/20
[2025-04-12 10:44] LABS: PSA,Total (Free>4and<10) 4.58 ng/mL (0.00-4.00)
[2025-04-13 10:48] LABS: Free Prostate Spec Ag 1.4 ng/mL; Percent Free Prostate Spec Ag 35 % (calc) (>25)
== END 2025-04-12 07:13 | disposition home or self-care (01) ==
LOC: HO.HMGCLDS 07:12
PROVIDERS: PCP Internal Medicine; Visit Provider Urology
DX: R97.20 Elevated prostate specific antigen [PSA] (principal); Z12.5 Encounter for screening for malignant neoplasm of prostate
CPT/HCPCS: 36415; 84153; 84154

== ENCOUNTER 2025-04-19 09:35 | Outpatient (AMB) | payer MEDICARE, SELFPAY ==
--- NOTE | 2025-04-19 09:53 | MHC.OFFVIS ---
Intake Visit Reasons: 6m/PSA/PVR Intake Note: Patient is present for: follow up labs Urology Medication:FINASTERIDE Blood Thinner:ASPIRIN today's pvr: 105 mls Private Duty Nurse Required: No Accompanied by: Self / Same As Patient Allergies atorvastatin (Lipitor) Adverse Reaction (Unknown, Verified 04/19/25 09:53) back pain HPI Comments Details: Edmond is a pleasant male. He is a patient Dr. Strong. He is seen for the following urologic conditions - elevated PSA - lower urinary tract symptoms Six-month follow-up PSA continues to remain controlled at 4.5 Will cut back to Friday, Friday, Friday HbA1c fallen from 8.0 to 7.3 Prior Prostate biopsy shows BPH with inflammation Remain on finasteride, six-month follow-up PSA Background of CLL so has some degree of immunocompromise with diabetes Lower Urinary Tract Symptoms: 160gm at biopsy Current visit is for further evaluation of, lower urinary tract symptoms, predominate obstructive symptoms. Current treatment includes finasteride. Prostate Symptom Score 10/ , Moderate (9-19), Bother 3. Symptoms include / , urgency, nocturia (>2), and are progressing. Prior Prostate Score unknown. PSA 06/12 10 09/13 5.2 on finasteride, 02/11 9.6, 07/14 5.3, 02/12 5.6, 07/15 3.6 F 36%, 02/13 4.5, 10/17 4.5 F 27%, 04/16 3.3, 10/18 4.9, 04/17 4.3, 10/19 4.5 33%, 04/18 4.5 Prostate volume 50+gm - very large on exam - Prostate Biopsy 04/15 NAD, Volume 160gm Associated conditions CAD No CVA No diabetes Yes elevated PSA Yes erectile dysfunction Yes Testing at next visit will include bladder scan. Treatment plan Continue finasteride [facility] Medical History (Updated 03/14/25 @ 10:09 by Chata Curiel MD) Zoster Colonoscopy refused Ascending aorta enlargement Hypertension CLL (chronic lymphocytic leukemia) Hyperlipemia DM type 2 (diabetes mellitus, type 2) (Unknown) HTN (hypertension) (Unknown) Surgical History History of repair of right rotator cuff (Unknown) History of cholecystectomy (Unknown) Family History Father No problems noted. Mother Diabetes Social History Housing: House Alcohol intake: never Patient Tobacco Use Status: Former Tobacco user e-Cigarette/Vaping Use: Never Used service: No Current occupational status: retired Cognitive needs: No Hearing needs: Yes Vision needs: Yes Review of Systems Const Denies chills and Denies fever(s) Card Reports no additional complaints and Denies syncope Resp Denies cough GI Denies abdominal pain and Denies heartburn Reports as per HPI and Denies change in libido Neuro Denies syncope Psych Denies change in libido Endo Denies change in libido Physical Exam Const General: cooperative, healthy appearing, comfortable and no acute distress Orientation/consciousness: patient oriented x3 HEENT Face and sinus: Yes normal facial exam Mouth: moist mucous membranes Neck Neck: Yes normal visual inspection, Yes full ROM and Yes trachea midline Chest Chest palpation & inspection: normal inspection of the chest Resp Effort & Inspection: normal respiratory effort, able to speak in complete sentences and no respiratory distress GI Inspection: Yes normal to inspection Back/Spine/Pelvis Cervical Spine: normal cervical lordosis Thoracic/Lumbar Spine: thoracic and lumbar spine normal to inspection Skin General skin exam: no rashes or lesions noted Neuro General: patient oriented x3, gait normal, tone normal and moves all extremities Extrem General: Yes normal to inspection and Yes capillary refill normal Office Procedures Post Void Residual Post Residual Void Post Void Residual (PVR): 105 [id number] Void Residual by ultrasound Results AMB Urinalysis, Automated UA Leukoctes 0 Deangelo/uL Last Edit by DEN Matute on 04/19/25 10:01 UA Nitrite Negative Last Edit by DEN Matute on 04/19/25 10:01 UA Urobilinogen 0.2 mg/dL Last Edit by DEN Matute on 04/19/25 10:01 UA Protein 30 mg/dL Last Edit by DEN Matute on 04/19/25 10:01 UA pH 6.0 Last Edit by DEN Matute on 04/19/25 10:01 UA Blood 200 Jerry/uL Last Edit by [facility] on 04/19/25 10:01 UA Specific Gilliam 1.030 Last Edit by DEN Matute on 04/19/25 10:01 UA Ketone Positive Last Edit by DEN Matute on 04/19/25 10:01 UA Bilirubin 0 mg/dL Last Edit by Chelsey Carr [facility] on 04/19/25 10:01 UA Glucose 0 mg/dL Last Edit by Chelsey Carr [facility] on 04/19/25 10:01 Results Reviewed Results Reviewed: Laboratory Last Values Urine pH (Auto) 6.0 04/19/25 10:00 Specific Gilliam (Auto) 1.030 04/19/25 10:00 Urine Protein (Auto) 30 mg/dL 04/19/25 10:00 Glucose (UA)(Auto) 0 mg/dL 04/19/25 10:00 Urine Ketones (Auto) Positive 04/19/25 10:00 Urine Blood (Auto) 200 Jerry/uL 04/19/25 10:00 Urine Nitrite (Auto) Negative 04/19/25 10:00 Urine Bilirubin (Auto) 0 mg/dL 04/19/25 10:00 Urine Urobilinogen (Auto) 0.2 mg/dL 04/19/25 10:00 Leukocyte Esterase (Auto) 0 Deangelo/uL 04/19/25 10:00 Assessment & Plan Assessment & Plan (1) Elevated PSA: Comment: 04/15 160gm Biopsy Negative Code(s): R97.20 - Elevated prostate specific antigen [PSA] Category: Medical (2) BPH w urinary obs/LUTS: Comment: Established with Urology Code(s): N40.1 - Benign prostatic hyperplasia with lower urinary tract symptoms; N13.8 - Other obstructive and reflux uropathy Category: Medical Plan Six-month follow-up lab work Orders: Orders AMB Post Void Residual by ultrasound Today N13.8 - Other obstructive and reflux uropathy, N40.1 - Benign prostatic hyperplasia with lower urinary tract symptoms AMB Urinalysis Automated Today Z13.9 - Encounter for screening, unspecified PSA,Total (Free>4and<10) 6 Months R97.20 - Elevated prostate specific antigen [PSA] Patient Instructions: This note is constructed using voice recognition software. While every effort has been made to ensure accuracy toll test desk worker errors may have been included. Imaging studies, laboratory and physical exam results were discussed and reviewed in detail. No major barriers to patient understanding were identified. An opportunity to ask questions regarding the treatment plan was provided. All questions were answered. The patient expressed understanding and agreement with the above treatment plan. The patient is aware they should contact our office by phone for worsening of their current condition or the appearance of new urologic symptoms. Compliance is encouraged with any medications and followup testing that is ordered. It is a privilege to participate in the urologic care of your patient. If you have any questions or concerns regarding treatment for the above conditions, or other urologic issues, please do not hesitate to contact me. The office telephone contact is [phone]. Sincerely, Dr Haim Schmitt MD, [facility] - Urology Compassionate Specialist Care for the Genitourinary System Coding Level of Care Code Est Pt Level 3 (62639) Complex EM visit Add On G2211 Diagnoses Elevated PSA R97.20 BPH w urinary obs/LUTS N40.1; N13.8 CPT Codes Post Residual Void - PVR CPT Code: 45006-Mbcf Void Residual by ultrasound ([id number])
--- OUTSIDE RECORDS SUMMARY | 2025-04-19 10:14 | XMS_ITS | Clinical Summary ---
Author Organization [facility] Address [address] [place] [address] Care Team Providers Care Brake Repairer Name Role Phone Chata Curiel MD Primary Care Provider [phone] Allergies No known active allergies Medications Medication [...] age to complete this topic Care Teams Brake Repairer Relationship Specialty Start Date End Date Chata Curiel MD [address] [place] [address] PCP - General Body Die Maker 03/09/20
--- OUTSIDE RECORDS SUMMARY | 2025-04-19 10:14 | XMS_ITS | Clinical Summary ---
Author Organization [facility] Address [address] [place] [address] Phone Care Team Providers Care Burglar Alarm Inspector Name Role Phone Chata Curiel MD Primary Care Provider [phone] Allergies No known active allergies Medications amLODIPine [...] Description 11/09/2025 10:30 AM EDT Office Visit [facility] Hematology Oncology [address] [place] [phone] Kendall Asencio MD [address] [place] [address] Health Maintenance Due Date Last Done Comments [...] topic Insurance [employer] MEDICARE Care Teams Burglar Alarm Inspector Relationship Specialty Start Date End Date Chata Curiel MD PCP - General Burn Out Tender Lace 03/09/20
== END 2025-04-19 10:58 | disposition home or self-care (01) ==
LOC: HO.HUSH 09:36
PROVIDERS: PCP Internal Medicine; Visit Provider Urology
DX: R97.20 Elevated prostate specific antigen [PSA] (principal); N40.1 Benign prostatic hyperplasia with lower urinary tract symptoms; N13.8 Other obstructive and reflux uropathy; Z13.9 Encounter for screening, unspecified
CPT/HCPCS: 99213; G2211

== ENCOUNTER → 2025-04-19 09:35 | Outpatient (BNVA) | payer MEDICARE, SELFPAY | PROVIDERS: PCP Internal Medicine; Visit Provider Urology | DX: R97.20 Elevated prostate specific antigen [PSA] (principal); N40.1 Benign prostatic hyperplasia with lower urinary tract symptoms; N13.8 Other obstructive and reflux uropathy; Z13.9 Encounter for screening, unspecified | CPT/HCPCS: 51798; 81003; 99212 ==

== ENCOUNTER 2025-08-20 08:06 | Outpatient (REF) | payer MEDICARE, SELFPAY ==
--- OUTSIDE RECORDS SUMMARY | 2025-08-20 08:09 | XMS_ITS | Clinical Summary ---
Author Organization [facility] Prior to 01/22/[address] [place] [address] Care Team Providers Care Siding Applicator Name Role Phone Chata Curiel MD Primary Care Provider [phone] Allergies No known active allergies Medications Medication [...] Hepatitis C Screening 1950 COVID-19 Vaccine (#1) 1951 Depression Screening 1963 Preventative Health Evaluation 1969 DTap / Tdap / Td (1 - Tdap) 1970 Colon Cancer Screening (Colonoscopy) 1996 Shingrix-Zoster Vaccine (1 of 2) 2001 Fall Risk Assessment 2016 Pneumococcal Vaccine (1 of 1 - PCV) 2016 Influenza Vaccine (#1) 2025 RSV Adult > 60+ Yrs or Pregn ant (1 - 1-dose 75+ series) 2026 Hepatitis B Vaccines Aged Out No long er eligible based on patient's age to complete this topic RSV Ped < 20 months Aged Out No longe r eligible based on patient's age to complete this topic Care Teams Siding Applicator Relationship Specialty Start Date End Date Chata Curiel MD [address] [place] [address] PCP - General Healthcare Analyst 03/09/20
--- OUTSIDE RECORDS SUMMARY | 2025-08-20 08:09 | XMS_ITS | Clinical Summary ---
Author Organization [facility] Address [address] [place] [address] Phone Care Team Providers Care Filteration Operator Name Role Phone Chata Curiel MD Primary Care Provider [phone] Allergies No known active allergies Medications amLODIPine [...] on file Sexual Orientation Not on file Last Filed Vital Signs [...] Description 11/09/2025 10:30 AM EDT Office Visit [facility] Hematology Oncology [address] [place] [phone] Kendall Asencio MD [address] [place] [address] Health Maintenance Due Date Last Done Comments Colorectal Cancer Screening: Colonoscopy 1951 DTaP,Tdap,and Td Vaccines (1 - Tdap) 1970 Zoster Vaccines (1 of 2) 1970 Pneumococcal Vaccine: 50+ Years (1 of 1 - PCV) 2001 COVID-19 Vaccine (3 - Modern a risk series) 02/01/2021 01/04/2021, 12/07/2020 Abdominal Aortic Aneurysm (AAA) Screen 08/02/2022 Cholesterol Screening (Lipid Panel) 08/02/2022 Falls Risk Assessment 08/02/2022 Hepatitis C [...] complete this topic Insurance [place] [id number] Care Teams Filteration Operator Relationship Specialty Start Date End Date Chata Curiel MD PCP - General Lithographic Plate Maker Apprentice 03/09/20
[2025-08-20 11:16] LABS: Hematocrit 41.8 % (42.0-52.0); Hemoglobin 12.9 g/dl (14.0-18.0); Imm Gran Abs Auto 0.02 X10*3/uL (0.00-0.03); Imm Gran Pct Auto 0.1 % (0.0-0.4); MANUAL DIFF FLAG SCAN; Mean Corpuscular HGB Conc 30.9 g/dl (31.0-36.0); Mean Corpuscular Hemoglobin 26.8 pg (27.0-33.0); Mean Corpuscular Volume 86.9 fL (80.0-98.0); NRBC Abs Auto 0.000 X10*3/uL (0.0-0.012); NRBC Pct Auto 0.0 /100WBC (0.0-0.2); Platelet Count 136 X10*3/uL (160-400); Red Blood Count 4.81 X10*6/uL (4.60-5.80); SCAN SMEAR FLAG 1; White Blood Count 13.8 X10*3/uL (4.8-10.8)
[2025-08-20 11:17] LABS: Lymphocytes Absolute Auto 10.7 X10*3/uL (1.2-4.9)
[2025-08-20 11:30] LABS: Alanine Aminotransferase 35 U/L (0-40); Albumin Level 4.5 g/dL (3.5-5.0); Alkaline Phosphatase 49 U/L (39-117); Anion Gap 12 (12-20); Aspartate Amino Transferase 23 U/L (5-37); Blood Urea Nitrogen 16 mg/dL (9-16); Calcium 9.2 mg/dL (8.4-10.2); Carbon Dioxide 26 mmol/L (22-29); Chloride 107 mmol/L (96-108); Cholesterol 132 mg/dL (<200); Estimated Glomerular Filt Rate > 60; HDL Cholesterol 42 mg/dL (>40); Potassium 4.2 mmol/L (3.3-5.1); Sodium 141 mmol/L (135-145); Total Protein 6.6 g/dL (6.5-8.0); Triglycerides 131 mg/dL (<150)
[2025-08-20 11:37] LABS: Microalbum/Creatinine Ratio Ur 43.6 ug/mg cr (<30)
== END 2025-08-20 08:07 | disposition home or self-care (01) ==
LOC: HO.HMGCLDS 08:06
PROVIDERS: PCP Internal Medicine; Visit Provider Internal Medicine
DX: I10 Essential (primary) hypertension (principal); E78.5 Hyperlipidemia, unspecified; E11.9 Type 2 diabetes mellitus without complications; C91.10 Chronic lymphocytic leukemia of B-cell type not having achieved remission
CPT/HCPCS: 36415; 80053; 80061; 82043; 82570; 83036; 85025